=== PATIENT | female | born 1940 | race Caucasian/White ===

== ENCOUNTER 2018-06-03 14:10 | Outpatient (REF) | payer MEDICARE, OTHER, SELFPAY ==
[2018-06-03 19:16] LABS: CREATININE 0.84 mg/dL (0.55-1.02); Cholesterol 193 mg/dL (50-200); Glucose 88 mg/dL (70-100); HDL Cholesterol 60 mg/dL (40-60); LDL CHOLESTEROL 116 mg/dL (<100); TSH (W/Ref FT4) 2.95 uIU/mL (0.358-3.74); Triglyceride 127 mg/dL (30-150)
== END 2018-06-03 14:30 ==
LOC: NCHCN 14:10
PROVIDERS: PCP Family Medicine; Visit Provider Family Medicine
DX: E03.9 Hypothyroidism, unspecified (principal); Z13.1 Encounter for screening for diabetes mellitus
CPT/HCPCS: 80061; 82947; 83721; 82565; 84443

== ENCOUNTER 2018-06-21 00:34 | Outpatient (CLI) | payer MEDICARE, OTHER, SELFPAY ==
--- NOTE | 2018-06-21 15:00 | DI.RAD_ITS ---
SYMPTOMS/DIAGNOSIS: MENOPAUSAL STATE, Z78.0 DEXA SCAN WITH REGLA: Comparison is made with exams from 2009 and 2013. There is extenuation of the thoracic kyphosis on the REGLA image. There is slight anterior wedging of mid thoracic vertebral bodies, as well as endplate osteophytes and disc space narrowing. The bone mineral density measurements of the lumbar spine correspond to a total T score of -1.1, consistent with osteopenia. There has been no significant change when compared with the previous exams. The bone mineral density measurements of the left hip correspond to a total T score of -1.8 and a femoral neck T score of -2.2. The total bone mineral density shows a 6.5% decrease when compared with 2013 and a 7.9% decrease when compared with 2009. The bone mineral density measurements of the left forearm correspond to a T score of the distal third of -1.9. This is not significantly changed from 2013. IMPRESSION: Osteopenia of the left forearm, left hip and lumbar spine.
--- NOTE | 2018-06-21 15:44 | DI.MAMMO_ITS ---
SYMPTOM/DIAGNOSIS: SCREENING, Z12.31, HEALTH CARE, Z00.00 MAMMOGRAMS: Mammograms were interpreted according to the usual protocol including computer analysis with CAD system, tomosynthesis and C view imaging. Comparison is made with exams from [id number]. The breasts are composed of scattered fibroglandular densities, breast density, Category B. No suspicious masses or suspicious microcalcifications are seen. There has been no significant change. IMPRESSION: Category 1B, negative mammogram. Routine screening is recommended. [facility] ASSESSMENT OF FINDINGS: Negative. Category 1. Patient will receive a letter notifying them of these results. BI-RADS category B. There are scattered areas of fibroglandular density.
== END 2018-06-21 00:54 ==
PROVIDERS: PCP Family Medicine; Visit Provider Family Medicine
DX: M85.88 Other specified disorders of bone density and structure, other site (principal); Z12.31 Encounter for screening mammogram for malignant neoplasm of breast; Z78.0 Asymptomatic menopausal state
CPT/HCPCS: 77063; 77067; 77080

== ENCOUNTER 2019-06-08 15:50 | Outpatient (REF) | payer MEDICARE, OTHER, SELFPAY ==
[2019-06-08 19:58] LABS: TSH (W/Ref FT4) 1.65 uIU/mL (0.36-3.74)
== END 2019-06-08 16:10 ==
LOC: NCHCN 15:50
PROVIDERS: PCP Family Medicine; Visit Provider Family Medicine
DX: E03.9 Hypothyroidism, unspecified (principal)
CPT/HCPCS: 84443

== ENCOUNTER 2020-06-13 20:49 | Outpatient (REF) | payer MEDICARE, OTHER, SELFPAY ==
[2020-06-13 19:24] LABS: TSH (W/Ref FT4) 2.07 uIU/mL (0.36-3.74)
== END 2020-06-13 21:09 ==
LOC: NCHCN 20:49
PROVIDERS: PCP Family Medicine; Visit Provider Family Medicine
DX: E03.9 Hypothyroidism, unspecified (principal)
CPT/HCPCS: 84443

== ENCOUNTER 2020-09-12 01:54 | Outpatient (CLI) | payer MEDICARE, OTHER, SELFPAY ==
--- NOTE | 2020-09-12 | DI.DEXA_ITS ---
EXAM: XR DEXA BONE DENSITY W/WO REGLA CLINICAL HISTORY: OSTEOPENIA,M85.88,SCREENING FOR OSTEOPOROSIS IN POSTMENOPAUSAL WOMAN,Z78.0 TECHNIQUE: COMPARISON: No exams were available for comparison FINDINGS: DEXA scan was performed according to the usual protocol. Please see the accompanying data sheets. Findings for left hip scanning are T-score -1.5 with left femoral neck T-score -2.1. Prior study of May 2018 showed left hip T-score -1.8. Findings for lumbar spine scanning are T-score -0.7. Prior study of 2017 showed lumbar T-score -1.1. Findings for left forearm scanning shows T-score -1.6. IMPRESSION: Findings consistent with osteopenia according to the WHO criteria. There is mild anterior wedging of mid thoracic vertebral bodies consistent with mild chronic compression fractures. RADIATION DOSE DELIVERED: Total DLP
--- NOTE | 2020-09-12 15:15 | DI.MAMMO_ITS ---
EXAM: MAMMO SCREENING CLINICAL HISTORY: SCREENING, Z12.39 TECHNIQUE: Mammograms were interpreted according to the usual protocol including computer analysis w [place] CAD system, tomosynthesis and C-view imaging. COMPARISON: FINDINGS: The breasts are of moderate density with fairly symmetrical distribution of fibroglandular tissue. N o dominant mass or clumped microcalcification is identified in either breast. Current examination is compared with previous examinations including May 2018 and there has been no gross interval joyner ge in appearance in comparison prior studies. IMPRESSION: No specific evidence of malignancy at this time. Routine screening examinations are suggested at yea rly intervals in this age group according to the ACS ACR guidelines. BI-RADS Category 1 - Negative Breast Density - Category B - Scattered areas of fibroglandular density
== END 2020-09-12 02:14 ==
PROVIDERS: PCP Family Medicine; Visit Provider Family Medicine
DX: Z12.31 Encounter for screening mammogram for malignant neoplasm of breast (principal); M85.89 Other specified disorders of bone density and structure, multiple sites
CPT/HCPCS: 77063; 77067; 77080

== ENCOUNTER 2021-06-04 02:13 | Outpatient (CLI) | payer MEDICARE, OTHER, SELFPAY ==
[2021-06-04 11:10] LABS: Source Nasal/Nares
[2021-06-04 15:49] LABS: COVID-19 PCR Negative (Negative)
== END 2021-06-04 02:14 | disposition home or self-care (01) ==
PROVIDERS: PCP Family Medicine; Visit Provider Ophthalmology
DX: Z20.822 Contact with and (suspected) exposure to COVID-19 (principal); Z01.818 Encounter for other preprocedural examination
CPT/HCPCS: 87635

== ENCOUNTER 2021-06-06 06:45 | Day surgery (SDC) | payer MEDICARE, OTHER, SELFPAY ==
[2021-06-06] MEDS: Tropicam./Phenyleph. (1/2.5%) 5 ML BTL OS ×3 (07:27→07:40)
[2021-06-06 07:31] VITALS: BP 142/80; PULSE 60; RESP 16; TEMP 36.2; O2SAT 97
--- NOTE | 2021-06-06 07:43 | W.ANESPRE ---
General Info Date of Service Date Performed: 06/06/21 Height: 5 ft 0.5 in Weight: 74.3 kg Body Mass Index (BMI): 31.4 Surgical Procedure: Operation Date: 06/06/21 08:40 Proposed Procedures Side Surgeon p Cataract Extraction with IOL Implant Left Bryce Palm MD Meds Allergies and Home Medications Allergies Allergy/AdvReac Type Severity Reaction Status Date / Time fentanyl Allergy Severe Anaphylaxis Unverified 06/06/21 07:24 alendronate sodium AdvReac Intermediate pain Unverified 06/06/21 07:40 [From Fosamax] Home Medication Medication Instructions Recorded calcium carbonate-vitamin D3 1 tab PO BID 06/04/21 [Calcium 600 + D(3)] levothyroxine 88 mcg PO DAILY 06/04/21 Current Visit Medications: Current Medications Generic Name Dose Route Start Last Admin Trade Name Freq PRN Reason Stop Dose Admin Acetaminophen 1,000 mg 06/06/21 06:00 Acetaminophen 500 Mg Tab PO Q4H PRN PRN Miscellaneous Medication 0 ml 06/06/21 06:00 Prednisolone 1%, Moxifloxacin 0.5%, Nepafenac 0.1% 5ml Btl OS DIRECTED ROSELINE Miscellaneous Medication 0 ml 06/06/21 06:00 06/06/21 07:40 Tropicam./Phenyleph. 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 states f/u with PCP Hypothyroidism Osteoarthritis Osteopenia Surgical History Surgical History (Updated 06/06/21 @ 07:24 by Caren Kellogg) History of total knee arthroplasty Hx of section Hx of colonoscopy Tobacco Smoking/Tobacco Use Status: Never Alcohol Alcohol Intake: never Substance Use Substance use type: does not use Vital Signs and Lab Results Vital Signs Most Recent Vital Signs in EMR: Most Recent Vital Signs Temp Pulse Resp BP Pulse Ox 36.2 C L 60 16 142/80 H 97 06/06/21 07:31 06/06/21 07:31 06/06/21 07:31 06/06/21 07:31 06/06/21 07:31 Lab Results Blood Type / Crossmatch: No Data to Display Complete Blood Count: No Data to Display Complete Metabolic Panel: No Data to Display Liver Function Panel: No Data to Display Coagulation Panel: No Data to Display Cardiac Panel: No Data to Display Arterial Blood Gas: No Data to Display Venous Blood Gas: No Data to Display Pancreas Panel: No Data to Display Thyroid Panel: No Data to Display Infectious Disease: Coronavirus (COVID-19)(PCR) Negative (Negative) 06/04/21 09:54 06/04/21 Coronavirus 2019 Source Nasal/Nares 06/04/21 09:54 06/04/21 Blood Cultures: No Data to Display Toxicology Panel: No Data to Display Anesthesia Assessment and Plan Anesthesia History Personal History: No History of Anesthesia Complications Family History: No Family History of Anesthesia Complications Exercise Tolerance Exercise Tolerance: Metabolic Equivalents>4 Pertinent Negatives Pertinent Negatives: No Symptoms of GERD Cardiac & Pulmonary Exam Cardiac Exam: Normal S1/S2 Heart Sounds Pulmonary Exam: Clear Bilateral Breath Sounds Airway Exam Known Difficult Airway: No Mallampati Class: 2 Mouth Opening: Normal (> 3cm) Thyromental Distance: Greater than 3 cm Neck Range of Motion: Full ROM Neck Circumference: Normal Teeth Condition: Normal Dentition ASA Classification ASA Score: ASA 2 Emergency Case?: No NPO Status NPO Status: NPO Clears >2 hours, Solids >8 hours Anesthesia Plan Resuscitation Status: Full Code Anesthesia Technique: MAC Anesthesia Airway Planned: Natural Airway Monitors Used: Standard Monitors
[2021-06-06 08:06] VITALS: BMI 31.4
[2021-06-06] MEDS: Tetracaine 0.5% 4 ML BTL OS (08:19)
[2021-06-06] MEDS: Lidocaine 1% Pres-Free 5 ML VIAL (08:21)
[2021-06-06] MEDS: Balanced Salt Soln.-PLUS 500 ML BAG (08:25)
[2021-06-06] MEDS: Lidocaine 2% Jelly 6 ML SYR (08:26)
[2021-06-06] MEDS: Duovisc Viscoelastic System EACH 1 EACH (08:26)
[2021-06-06] MEDS: Povidone-Iodine Ophth 30 ML BTL (08:27)
--- NOTE | 2021-06-06 08:44 | W.PM.DSUDISC ---
Discharge Plan Disposition Patient Disposition: HOME Condition: Good Discharge Details Attending Provider: Bryce Palm Primary Care Provider: Shakira Downs V Home Meds and New Rx's Prescriptions: No Action levothyroxine 88 mcg tablet 88 mcg PO DAILY RF: 0 calcium carbonate-vitamin D3 [Calcium 600 + D(3)] 600 mg(1,500mg) -400 unit Tablet 1 tab PO BID RF: 0 Discharge Instructions Stand Alone Forms: Post-op Topical Cataract, Yu Landin (DSU) Discharge Orders Discharge Orders: Discharge Order (Routine); Ordered 06/06/21 Ordered By: Bryce Palm DS: Diagnosis Discharge Diagnosis (1) Nuclear sclerotic cataract of left eye: Status: Resolved
[2021-06-06 08:45] VITALS: BP 146/75; PULSE 55; RESP 16; TEMP 36; O2SAT 98
--- NOTE | 2021-06-06 08:49 | W.PM.OP ---
Date of service: 06/06/21 Time of Service: 08:49 Operative Note Operative Note DATE OF PROCEDURE: 06/06/21 PRE-OP DIAGNOSIS: Nuclear/cortical cataract, left eye POST-OP DIAGNOSIS: same PROCEDURE: Cataract extraction using phacoemulsification with intraocular lens implant, left eye SURGEON: Bryce Palm ANESTHESIA TYPE: Local By Surgeon and MAC Refer to Anesthesia Record PATHOLOGY: none sent COMPLICATIONS: None Patient was transported to: same day Patient's condition: stable Implants: Isaías [employer] Isaías / [employer] Tecnis [id number] Indications: Progressive decreased vision due to cataract, left eye, with poor red reflex Procedure Description: CATARACT SURGERY OPERATIVE REPORT PREOPERATIVE DIAGNOSIS: 1. Nuclear/cortical cataract, left eye POSTOPERATIVE DIAGNOSIS: Same OPERATION: 1. Cataract extraction using phacoemulsification with posterior chamber intraocular lens implant, left eye. IOL: IOL Coat Hanger Shaper Machine Operator/Model: [employer] Isaías / MILY Tecnis [id number] IOL Power: + 21.5 diopters IOL Serial Number: [id number] Optic Diameter: 6.0 mm Haptic/Overall Diameter: 13.0 mm PHACO INFO: Arjun [employer] T[employer] Managementurion Vision System with OZil and Active Fluidics Cumulative Dispersed Energy (CDE): 15.56 seconds SURGEON: Bryce Palm MD, VALARIE ANESTHESIA: Monitored [facility] (MAC), with local sub-tenon's anesthetic infiltration COMPLICATIONS: None SPECIMENS: None INDICATIONS FOR PROCEDURE: The patient is a 80-year-old lady with history of diminished visual acuity in her left eye secondary to the development of nuclear and cortical cataract. The option of cataract surgery was offered to the patient and she wished to proceed. PROCEDURE: The correct surgical eye was identified and marked as the left eye and the pupil was dilated in the preoperative area using mydriatics and cycloplegics. The dilated pupil size was 6.5 mm. She elected to proceed without oral sedation. The patient was brought to the operating room where cardiopulmonary monitoring was instituted and surgical time-out was performed, confirming the correct operative eye and IOL power. Topical anesthesia was administered and ophthalmic povidone-iodine 5% was instilled into the conjunctival fornices. Lidocaine gel was applied to the cornea and the brett-ocular area was prepped with Betadine 10% solution and draped in the usual sterile fashion for intraocular surgery, including an aperture drape. A Tegaderm transparent film dressing was cut in half and used to cover the lashes and lid margins. Care was taken to sequester the lashes and lid margins under the Tegaderm dressing. A lid speculum was placed between the lids of the operative eye and the Gilberto-Val operating microscope was maneuvered into position. Shelbi scissors were then used to make a conjunctival buttonhole approximately 6mm posterior to the limbus in the inferonasal quadrant. Blunt dissection was carried out to expose bare sclera, and a blunt-tipped sub-tenon?s anesthesia cannula was introduced and passed posteriorly along the globe where non-preserved plain lidocaine was injected into posterior sub-Tenon?s space. A sideport knife was used to make a paracentesis port superiorly/superiortemporally. Intraocular phenylephrine/lidocaine was injected int the anterior chamber.. The anterior chamber was filled with viscoelastic. A 2.4mm keratome knife was used to create a half-thickness groove at the limbus and then to construct a three-plane near-clear corneal tunnel extending 2.0mm into clear cornea at the 3:00 position. A flap was raised on the anterior capsule and capsulorhexis forceps were used to complete a continuous curvilinear capsulorhexis of 5.5 mm. Moderate zonular laxity was noted. Balanced salt solution was then used to perform cortical cleaving hydrodissection and nuclear hydrodelineation until the lens could be freely rotated within the capsular bag. The lens nucleus was then disassembled and removed within the capsular bag and iris plane using phacoemulsification. Residual cortical material was removed using the 45-degree angled silicone I/A tip with 0.3mm port. The posterior capsule was carefully polished to remove as much residual lens epithelial cells as safely possible. The capsular bag was then inflated and the anterior chamber deepened with viscoelastic. The lens implant described above was inserted into the capsular bag using the MILY [place] Injector. A Kuglen hook was used to dial the IOL into position. Residual viscoelastic was then removed first from posterior to the IOL, then from the anterior chamber using the I/A handpiece. The lens implant was noted to center nicely within the capsular bag. The incisions were stromally hydrated, and the anterior chamber was reformed using BSS. Then 0.5cc of moxifloxacin 1.0mg/ml were injected into the capsular bag and anterior chamber. The incisions were checked with a Weck spear and found to be secure. Several drops of ophthalmic povidone-iodine 5% were then applied to the eye followed by two drops of Imprimis combination prednisolone/moxifloxacin/nepafenac solution. The drapes were removed and a clear plastic protective eye shield was placed over the eye. The patient was then returned to Same Day Surgery in stable condition.
--- NOTE | 2021-06-06 09:51 | W.ANESPOSTOP ---
Postoperative Evaluation Date, Time and Location Date Performed: 06/06/21 Time Performed: 08:45 Patient Location: Day Surgery Unit Vital Signs Most Recent Imported Vital Signs: Most Recent Vital Signs Temp Pulse Resp BP Pulse Ox 36.0 C L 55 L 16 146/75 H 98 06/06/21 08:45 06/06/21 08:45 06/06/21 08:45 06/06/21 08:45 06/06/21 08:45 Pain Score Most Recent Pain Score: Most Recent Pain Score Pain Level 0 06/06/21 08:45 Assessment Mental Status: Awake (Alert & Oriented to Patient Baseline) Airway and Respiratory Function: Patent airway with normal (patient baseline) respiratory exam Cardiovascular Function: Hemodynamically Stable Hydration Status: Adequately Hydrated Nausea & Vomiting: No Nausea or Vomiting Pain: Pt. Denies Any Pain Peripheral Nerve Block: Patient did not receive a nerve block
== END 2021-06-06 09:08 | disposition home or self-care (01) ==
PROVIDERS: PCP Family Medicine; Visit Provider Ophthalmology
PROC: (CPT 66984; principal; 2021-06-06 08:30)
DX: H25.12 Age-related nuclear cataract, left eye (principal); E03.9 Hypothyroidism, unspecified; I44.0 Atrioventricular block, first degree
CPT/HCPCS: 66984; V2632

== ENCOUNTER 2021-06-17 13:10 | Outpatient (REF) | payer MEDICARE, OTHER, SELFPAY ==
[2021-06-17 14:42] LABS: HCT 37.9 % (36.0-46.0); HGB 12.3 g/dL (11.2-15.7)
[2021-06-17 14:46] LABS: ESR 16 mm/hr (0-30)
[2021-06-17 15:02] LABS: Anion Gap 8.4 mmol/L (3-11); BUN 21 mg/dL (7-18); CO2 27.6 mmol/L (21.0-32.0); CREATININE 0.9 mg/dL (0.55-1.02); Chloride 105 mmol/L (98-107); Glucose 83 mg/dL (74-106); Potassium 4.2 mmol/L (3.5-5.1); Sodium 141 mmol/L (136-145); TSH (W/Ref FT4) 6.35 uIU/mL (0.36-3.74)
[2021-06-17 15:27] LABS: FREE T4 1.13 ng/dL (0.76-1.46)
== END 2021-06-17 13:11 | disposition home or self-care (01) ==
LOC: NCHCN 13:10
PROVIDERS: PCP Family Medicine; Visit Provider Family Medicine
DX: E03.9 Hypothyroidism, unspecified (principal); Z00.00 Encounter for general adult medical examination without abnormal findings
CPT/HCPCS: 80048; 85652; 84439; 84443; 85014; 85018

== ENCOUNTER 2021-06-18 01:59 | Outpatient (CLI) | payer MEDICARE, OTHER, SELFPAY ==
[2021-06-18 13:05] LABS: Source Nasal/Nares
[2021-06-18 17:58] LABS: COVID-19 PCR Negative (Negative)
== END 2021-06-18 02:00 | disposition home or self-care (01) ==
LOC: LBO 01:59
PROVIDERS: PCP Family Medicine; Visit Provider Ophthalmology
DX: Z20.822 Contact with and (suspected) exposure to COVID-19 (principal); Z01.818 Encounter for other preprocedural examination
CPT/HCPCS: 87635

== ENCOUNTER 2021-06-20 09:25 | Day surgery (SDC) | payer MEDICARE, OTHER, SELFPAY ==
[2021-06-20] MEDS: Tropicam./Phenyleph. (1/2.5%) 5 ML BTL OD ×3 (10:11→10:21)
[2021-06-20 10:12] VITALS: BP 124/73; PULSE 61; RESP 16; TEMP 36; O2SAT 98
--- NOTE | 2021-06-20 11:22 | W.ANESPRE ---
General Info Date of Service Date Performed: 06/20/21 Height: 5 ft 0.5 in Weight: 73.2 kg Body Mass Index (BMI): 30.9 Surgical Procedure: Operation Date: 06/20/21 12:40 Proposed Procedures Side Surgeon p Cataract Extraction with IOL Implant Right Bryce Palm MD Meds Allergies and Home Medications Allergies Allergy/AdvReac Type Severity Reaction Status Date / Time fentanyl Allergy Severe Anaphylaxis Unverified 06/20/21 10:07 alendronate sodium AdvReac Intermediate pain Unverified 06/20/21 10:07 [From Fosamax] Home Medication Medication Instructions Recorded calcium carbonate-vitamin D3 1 tab PO BID 06/04/21 [Calcium 600 + D(3)] levothyroxine 88 mcg PO DAILY 06/04/21 Current Visit Medications: Current Medications Generic Name Dose Route Start Last Admin Trade Name Freq PRN Reason Stop Dose Admin Acetaminophen 1,000 mg 06/20/21 06:00 Acetaminophen 500 Mg Tab PO Q4H PRN PRN Miscellaneous Medication 0 ml 06/20/21 06:00 Prednisolone 1%, Moxifloxacin 0.5%, Nepafenac 0.1% 5ml Btl OD DIRECTED ROSELINE Miscellaneous Medication 0 ml 06/20/21 06:00 06/20/21 10:21 Tropicam./Phenyleph. 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 states f/u with PCP Hypothyroidism Osteoarthritis Osteopenia Surgical History Surgical History (Updated 06/20/21 @ 10:07 by Caren Kellogg) History of total knee arthroplasty Hx of cataract surgery Hx of section Hx of colonoscopy Tobacco Smoking/Tobacco Use Status: Never Alcohol Alcohol Intake: never Substance Use Substance use type: does not use Vital Signs and Lab Results Vital Signs Most Recent Vital Signs in EMR: Most Recent Vital Signs Temp Pulse Resp BP Pulse Ox 36 C L 61 16 124/73 98 06/20/21 10:12 06/20/21 10:12 06/20/21 10:12 06/20/21 10:12 06/20/21 10:12 Lab Results Blood Type / Crossmatch: No Data to Display Complete Blood Count: Hemoglobin 12.3 g/dL (11.2-15.7) 06/17/21 11:05 06/17/21 Hematocrit 37.9 % (36.0-46.0) 06/17/21 11:05 06/17/21 Complete Metabolic Panel: Sodium Level 141 mmol/L (136-145) 06/17/21 11:05 06/17/21 Potassium Level 4.2 mmol/L (3.5-5.1) 06/17/21 11:05 06/17/21 Chloride Level 105 mmol/L (98-107) 06/17/21 11:05 06/17/21 Carbon Dioxide Level 27.6 mmol/L (21.0-32.0) 06/17/21 11:05 06/17/21 Blood Urea Nitrogen 21 mg/dL (7-18) H 06/17/21 11:05 06/17/21 Creatinine 0.9 mg/dL (0.55-1.02) 06/17/21 11:05 06/17/21 Estimated GFR/1.73 m2 >= 60.00 (mL/min/1.73m2) 06/17/21 11:05 06/17/21 Calcium Level 9.0 mg/dL (8.5-10.1) 06/17/21 11:05 06/17/21 Glucose Level 83 mg/dL (74-106) 06/17/21 11:05 06/17/21 Liver Function Panel: No Data to Display Coagulation Panel: No Data to Display Cardiac Panel: No Data to Display Arterial Blood Gas: No Data to Display Venous Blood Gas: No Data to Display Pancreas Panel: No Data to Display Thyroid Panel: Thyroid Stimulating Hormone (TSH) 6.35 uIU/mL (0.36-3.74) H 06/17/21 11:05 06/17/21 Infectious Disease: Coronavirus (COVID-19)(PCR) Negative (Negative) 06/18/21 10:11 06/18/21 Coronavirus 2019 Source Nasal/Nares 06/18/21 10:11 06/18/21 Blood Cultures: No Data to Display Toxicology Panel: No Data to Display Anesthesia Assessment and Plan Anesthesia History Personal History: No History of Anesthesia Complications Family History: No Family History of Anesthesia Complications Exercise Tolerance Exercise Tolerance: Metabolic Equivalents>4 Pertinent Negatives Pertinent Negatives: No Symptoms of GERD, No Major Cardiovascular Symptoms or Complaints and No Major Pulmonary Symptoms or Complaints Cardiac & Pulmonary Exam Cardiac Exam: Normal S1/S2 Heart Sounds Pulmonary Exam: Clear Bilateral Breath Sounds Airway Exam Known Difficult Airway: No Mallampati Class: 2 Mouth Opening: Normal (> 3cm) Thyromental Distance: Greater than 3 cm Neck Range of Motion: Full ROM Neck Circumference: Normal Teeth Condition: Normal Dentition ASA Classification ASA Score: ASA 2 Emergency Case?: No NPO Status NPO Status: NPO Clears >2 hours, Solids >8 hours Anesthesia Plan Resuscitation Status: Full Code Anesthesia Technique: MAC Anesthesia Airway Planned: Natural Airway Monitors Used: Standard Monitors
[2021-06-20 11:36] VITALS: BMI 30.9
[2021-06-20] MEDS: Balanced Salt Soln.-PLUS 500 ML BAG (12:03)
[2021-06-20] MEDS: Tetracaine 0.5% 4 ML BTL OD (12:03)
[2021-06-20] MEDS: Duovisc Viscoelastic System EACH 1 EACH (12:04)
[2021-06-20] MEDS: Lidocaine 1% Pres-Free 5 ML VIAL (12:04)
[2021-06-20] MEDS: Lidocaine 2% Jelly 6 ML SYR (12:05)
[2021-06-20] MEDS: Povidone-Iodine Ophth 30 ML BTL (12:06)
[2021-06-20 12:25] VITALS: BP 142/66; PULSE 57; RESP 18; TEMP 36.1; O2SAT 98
--- NOTE | 2021-06-20 12:26 | W.PM.DSUDISC ---
Discharge Plan Disposition Patient Disposition: HOME Condition: Good Discharge Details Attending Provider: Bryce Palm Primary Care Provider: Shakira Downs V Home Meds and New Rx's Prescriptions: No Action levothyroxine 88 mcg tablet 88 mcg PO DAILY RF: 0 calcium carbonate-vitamin D3 [Calcium 600 + D(3)] 600 mg(1,500mg) -400 unit Tablet 1 tab PO BID RF: 0 Discharge Instructions Stand Alone Forms: Post-op Topical Cataract, Yu Landin (DSU) Discharge Orders Discharge Orders: Discharge Order (Routine); Ordered 06/20/21 Ordered By: Bryce Palm DS: Diagnosis Discharge Diagnosis (1) Nuclear sclerotic cataract of right eye: Status: Resolved (2) Cortical cataract of right eye: Status: Resolved
--- NOTE | 2021-06-20 12:27 | ROE_ITS ---
Date of service: 06/20/21 Time of Service: 12:27 Operative Note Operative Note DATE OF PROCEDURE: 06/20/21 PRE-OP DIAGNOSIS: Nuclear/cortical cataract, right eye POST-OP DIAGNOSIS: same PROCEDURE: Cataract extraction using phacoemulsification with intraocular lens implant, right eye SURGEON: Bryce Palm ANESTHESIA TYPE: Local By Surgeon and MAC Refer to Anesthesia Record ESTIMATED BLOOD LOSS: 0 PATHOLOGY: none sent COMPLICATIONS: None Patient was transported to: same day Patient's condition: stable Implants: Isaías & Isaías/MILY Tecnis [id number] Indications: Progressive visual loss due to cataract, right eye Procedure Description: CATARACT SURGERY OPERATIVE REPORT PREOPERATIVE DIAGNOSIS: 1. Nuclear/cortical cataract, right eye POSTOPERATIVE DIAGNOSIS: Same OPERATION: 1. Cataract extraction using phacoemulsification with posterior chamber intraocular lens implant, right eye. IOL: IOL Boarding Machine Operator/Model: Isaías [employer] Isaías / MILY Tecnis [id number] IOL Power: + 21.5 diopters IOL Serial Number: [id number] Optic Diameter: 6.0mm Haptic/Overall Diameter: 13.0mm PHACO INFO: Arjun GREE Internationalurion Vision System with OZil and Active Fluidics Cumulative Dispersed Energy (CDE): 7.87 seconds SURGEON: Bryce Palm MD, VALARIE ANESTHESIA: Monitored Anesthesia Care (MAC), with local sub-tenon's anesthetic infiltration COMPLICATIONS: None SPECIMENS: None INDICATIONS FOR PROCEDURE: The patient is a 80-year-old lady with history of diminished visual acuity in her right eye secondary to the development of nuclear and cortical cataract. She has already undergone cataract surgery in the left eye and is doing well postoperatively. She now presents for cataract surgery of the right eye. PROCEDURE: The correct surgical eye was identified and marked as the right eye and the pupil was dilated in the preoperative area using mydriatics and cycloplegics. The dilated pupil size was 7.0 mm. She elected to proceed without oral sedation. The patient was brought to the operating room where cardiopulmonary monitoring was instituted and surgical time-out was performed, confirming the correct operative eye and IOL power. Topical anesthesia was administered and ophthalmic povidone-iodine 5% was instilled into the conjunctival fornices. Lidocaine gel was applied to the cornea and the brett-ocular area was prepped with Betadine 10% solution and draped in the usual sterile fashion for intraocular surgery, including an aperture drape. A Tegaderm transparent film dressing was cut in half and used to cover the lashes and lid margins. Care was taken to sequester the lashes and lid margins under the Tegaderm dressing. A lid speculum was placed between the lids of the operative eye and the Gilberto-Val operating microscope was maneuvered into position. Shelbi scissors were then used to make a conjunctival buttonhole approximately 6mm posterior to the limbus in the inferonasal quadrant. Blunt dissection was carried out to expose bare sclera, and a blunt-tipped sub-tenon?s anesthesia cannula was introduced and passed posteriorly along the globe where non- preserved plain lidocaine was injected into posterior sub-Tenon?s space. A sideport knife was used to make a paracentesis port inferotemporally. Intraoc ular phenylephrine/lidocaine was injected into the anterior chamber. The anterior chamber was filled with viscoelastic. A 2.4mm keratome knife was used to create a half-thickness groove at the limbus and then to construct a three- plane near-clear corneal tunnel extending 2.0mm into clear cornea superiortemporally. A flap was raised on the anterior capsule and capsulorhexis forceps were used to complete a continuous curvilinear capsulorhexis of 5.5 mm. Moderate zonular laxity was noted. Balanced salt solution was then used to perform cortical cleaving hydrodissection and nuclear hydrodelineation until the lens could be freely rotated within the capsular bag. The lens nucleus was then disassembled and removed within the capsular bag and iris plane using phacoemulsification. Residual cortical material was removed using the I/A handpiece. The posterior capsule was carefully polished to remove as much residual lens epithelial cells as safely possible. The capsular bag was then inflated and the anterior chamber deepened with viscoelastic. The lens implant described above was inserted into the capsular bag using the MILY Clarence Injector. A Kuglen hook was used to dial the IOL into position. Residual viscoelastic was then removed first from posterior to the IOL, then from the anterior chamber using the I/A handpiece. The lens implant was noted to center nicely within the capsular bag. The incisions were stromally hydrated, and the anterior chamber was reformed using BSS. Then 0.5cc of moxifloxacin 1.0mg/ml were injected into the capsular bag and anterior chamber. The incisions were checked with a Weck spear and found to be secure. Several drops of ophthalmic povidone-iodine 5% were then applied to the eye followed by two drops of Imprimis combination prednisolone/moxifloxacin/nepafenac solution. The drapes were removed and a clear plastic protective eye shield was placed over the eye. The patient was then returned to Same Day Surgery in stable condition.
--- NOTE | 2021-06-20 12:43 | W.ANESPOSTOP ---
Postoperative Evaluation Date, Time and Location Date Performed: 06/20/21 Time Performed: 12:43 Patient Location: Day Surgery Unit Vital Signs Most Recent Imported Vital Signs: Most Recent Vital Signs Temp Pulse Resp BP Pulse Ox 36.1 C L 57 L 18 142/66 H 98 06/20/21 12:25 06/20/21 12:25 06/20/21 12:25 06/20/21 12:25 06/20/21 12:25 Pain Score Most Recent Pain Score: Most Recent Pain Score Pain Level 0 06/20/21 12:25 Assessment Mental Status: Awake (Alert & Oriented to Patient Baseline) Airway and Respiratory Function: Patent airway with normal (patient baseline) respiratory exam Cardiovascular Function: Hemodynamically Stable Hydration Status: Adequately Hydrated Nausea & Vomiting: No Nausea or Vomiting Pain: Pt. Denies Any Pain Peripheral Nerve Block: Patient did not receive a nerve block
== END 2021-06-20 13:12 | disposition home or self-care (01) ==
PROVIDERS: PCP Family Medicine; Visit Provider Ophthalmology
PROC: (CPT 66984; principal; 2021-06-20 12:30)
DX: H25.11 Age-related nuclear cataract, right eye (principal); E03.9 Hypothyroidism, unspecified; Z79.899 Other long term (current) drug therapy; I44.0 Atrioventricular block, first degree
CPT/HCPCS: 66984; V2632

== ENCOUNTER 2021-08-20 09:37 | Outpatient (REF) | payer MEDICARE, OTHER, SELFPAY ==
[2021-08-20 14:04] LABS: FREE T4 1.28 ng/dL (0.76-1.46); TSH 1.32 uIU/mL (0.36-3.74)
== END 2021-08-20 09:38 | disposition home or self-care (01) ==
LOC: NCHCN 09:37
PROVIDERS: PCP Family Medicine; Visit Provider Family Medicine
DX: E03.9 Hypothyroidism, unspecified (principal)
CPT/HCPCS: 84439; 84443

== ENCOUNTER → 2022-04-03 00:46 | Outpatient (CLI) | payer MEDICARE, OTHER, SELFPAY ==
--- OUTSIDE RECORDS SUMMARY | 2022-04-03 01:20 | XMS_ITS | Encounter Summary ---
:1940 Author Organization [facility] [address] Care Team Providers Name Role Phone Shakira Downs MD Primary Care Provider Reason for Visit Reason Comments Left Knee Pain Encounter Details Date Type Department Care Team Description 06/18/2015 Office [place] [facility] [place] Primary osteoarthritis [facility] MD [place] [address] [place] [address] [place] [address] Social History Tobacco Use Types Packs/Day Years Used Date Never Smoker Smokeless Tobacco: Never Used Alcohol Use Standard Drinks/Week Comments No 0 (1 standard drink = 0.6 oz pure alcoho l) Sex Assigned at Date Recorded Not on file documented as of this encounter Last Filed Vital Signs Vital Sign Reading Time Taken Comments Blood Pressure 112/65 06/18/2015 12:33 PM EDT Pulse 65 06/18/2015 12:33 PM EDT Temperature - - Respiratory Rate - - Oxygen Saturation - - Inhaled Oxygen Concentration - - Weight 72.3 kg (159 lb 6.4 06/18/2015 12:33 PM fully cl othed oz) EDT Height 156.2 cm (5' 1.5) 06/18/2015 12:33 PM verbal EDT Body Mass Index 29.63 06/18/2015 12:33 PM EDT documented in this encounter Progress Notes Zeke Gonzalez MD - 06/18/2015 1:00 PM EDT Please see the note scribed by Lor Mcclendon RN. I have reviewed the patient's history, examination and labs. We will proceed with surgery unless his medical condition changes. The risks, benefits, and alternatives, of left knee arthroplasty were discussed with the patient. The risks were limited to infection, stiffness, pain, injury lesser nerve, limb length inequality, fracture, dislocation, DVT/PE, implant failure, wound breakdown, hematoma formation, need for additional surgery and loss of limb and/or life. All questions were answered and he wished to proceed. We will plan on ASA for VTE prophylaxis. Zeke Gonzalez MD, VALARIE Lor Mcclendon RN - 06/18/2015 12:48 PM EDT This note is recorded by Lor Mcclendon RN acting as a scribe for Zeke Gonzalez MD. PREOPERATIVE VISIT HISTORY OF PRESENT ILLNESS: Very pleasant 74 y.o. year-old female with severe osteoarthritis of the knee. I have seen the patient previously and the plan is for left total knee arthroplasty. Please refer to my previous note for the full history. She reports that the pain has not changed and has actually gotten a bit worse. She has reviewed the shared decision making video and is confident in the decision to go forward with total joint arthroplasty. PHYSICAL EXAMINATION: Exam is previously documented in my note and is unchanged. RELEVANT LAB STUDIES: Lab Results Component Value Date WBC 5.7 06/18/2015 HGB 12.7 06/18/2015 HCT 38.7 06/18/2015 PLATELET 327 06/18/2015 CREATININE 0.87 06/18/2015 Estimated Creatinine Clearance: 53.8 mL/min (based on Cr of 0.87). type and screen done. ASSESSMENT/PLAN: A 74 y.o. year-old female who presents for preoperative appointment today. I had a long discussion with her regarding the risks and benefits of total knee arthroplasty. We talked aboutbleeding, infection, need for further surgery, fracture, blood clots, implant failure, blood transfusion, and the complications of anesthesia up to and including . I used total knee implants to demonstrate for her how we perform the procedure and all questions were answered. I did review the history and physical today which says she is cleared for surgery and has no specific recommendations for further testing. I reviewed the labs and there were no issues with those. Informed consent was signedin the clinic today. We discussed DNR status and the patient is a full code. We will plan to use Aspirin for 6 weeks postoperatively for DVT prophylaxis. I discussed with them the possible discharge scenarios including going home versus needing to go to a rehab facility. We will make that determination after seeing how well mobilization is progressing. I have personally evaluated the patient and agree with the above note as recorded by Lor Mcclendon, RN. documented in this encounter Plan of Treatment Not on filedocumented as of this encounter Visit Diagnoses Diagnosis Primary osteoarthritis of left knee Primary localized osteoarthrosis, lower leg documented in this encounter Care Teams Thread Separator Relationship Specialty Start Date End Date Shakira Downs MD PCP - General 02/15/15 [address] [place] [address] documented as of this encounter
--- OUTSIDE RECORDS SUMMARY | 2022-04-03 01:20 | XMS_ITS | Encounter Summary ---
:1940 Author Organization [facility] [place] [address] Care Team Providers Name Role Phone Shakira Downs MD Primary Care Provider Reason for Visit Reason Comments Aftercare Of Tjr SP L TKA DOS 06/24/15 Encounter Details Date Type Department Care Team Description 06/16/2016 Office Visit [place] [facility] [place] Status post left knee [facility] [place] [address] [place] [address] ORTHOPAEDICS [place], [place] [address] Social History Tobacco Use Types Packs/Day Years Used Date Never Smoker Smokeless Tobacco: Never Used Alcohol Use Standard Drinks/Week Comments No 0 (1 standard drink = 0.6 oz pure alcoho l) Sex Assigned at Date Recorded Not on file documented as of this encounter Last Filed Vital Signs Vital Sign Reading Time Taken Comments Blood Pressure 118/69 06/16/2016 11:21 AM EDT Pulse 68 06/16/2016 11:21 AM EDT Temperature - - Respiratory Rate - - Oxygen Saturation - - Inhaled Oxygen Concentration - - Weight 74.7 kg (164 lb 9.6 oz) 06/16/2016 11:21 AM EDT Height 153.7 cm (5' 0.5) 06/16/2016 11:21 AM EDT Body Mass Index 31.62 06/16/2016 11:21 AM EDT documented in this encounter Progress Notes Zenaida Hernandez MD - 06/16/2016 11:30 AM EDT Patient Name: Zahida Bond : 1940 MR#: [id number] Case Date: 06/24/15 Surgeon: Florin Gonzalez Procedure: left total knee revision HPI: Zahida Bond is a very pleasant 75 y.o. year-old female who presents for a 1 years follow-up of the above procedure. The patient has been doing very well and her pain is markedly improved over preoperative status. No fevers, chills, nausea, vomiting, or symptoms of infection. Zahida has been ambulating with no assistive device. She can walk as far as she wants without pain. Physical Exam: Well-appearing female in no acute distress. Alert and Oriented x 3 and answers all questions appropriately. The incision is well healed, with no signs of infection. Knee Exam: Left Knee ROM: Extension:0 Flexion: 110 Alignment: 0-4 degrees Neutral Stability: A/P Translation <5mm Varus <5mm Valgus <5mm Extension La degrees or less Patella Tracking: Normal Pulses Palpable: Left PT:Yes Left DP:Yes Motor/Sensory: Distal Motor: Normal Distal Sensory: Normal Quadriceps Strength: 5 X-RAYS: Multiple radiographic views were obtained at my request and reviewed with the patient. X-rays show a well-placed prosthesis with no evidence of fracture or loosening. ASSESSMENT/PLAN: 1 years post-op and doing well. Continue weightbearing as tolerated and working on range of motion, and we will see her back in 4-5 years for repeat examination with XR. Patient may return to normal activities as her pain and function allow. We also discussed maintaining good foot care and giving prompt attention to any source of infection throughout the body including foot ulcers and urinary tract infections. Signed: ZENAIDA HERNANDEZ MD 06/16/2016 Zeke Gonzalez MD - 06/16/2016 11:30 AM EDT I performed a history and physical examination of the patient and discussed the management plan withDr. Hernandez. I also discussed the different treatment options, as well as the risks and benefits of each with the patient and questions were answered. I reviewed the note and agree with the documented fi ndings and plan of care. Zeke Gonzalez MD, VALARIE documented in this encounter Plan of Treatment Not on filedocumented as of this encounter Visit Diagnoses Diagnosis Status post left knee replacement documented in this encounter Care Teams Polisher Sand Relationship Specialty Start Date End Date Shakira Downs MD PCP - General 02/15/15 [address] [place] [address] documented as of this encounter
--- OUTSIDE RECORDS SUMMARY | 2022-04-03 01:20 | XMS_ITS | Encounter Summary ---
:1940 Author Organization [facility] [place] [address] Care Team Providers Name Role Phone Shakira Downs MD Primary Care Provider Reason for Visit Consultation (Routine) - Closed Specialty Diagnoses / Procedures Referred By Contact Refer red To Contact Cardiology Diagnoses AV BLOCK 1ST DEGREE DISCOVERED ON EKG PRE OP FOR LEFT TKR NEED CARDIOLOGY Shakira Vang MD [facility] [facility] [place] [address] [place], [place] [id number] [place] [id number] Referral ID Status Reason Start Date Expiration Date Visits V isits Requested Authorized [id number] Closed Consult & 05/30/2015 05/29/2016 1 1 Test Connection Center Encounter Details Date Type Department Care Team Description 06/14/2015 [place] [facility] [place] Catalan MD [facility] [place] [address] AV block, 1st degree; [facility] Vitaliy Dale MD [facility] [place] [address] Left knee pain; Drive Primary localized osteoarthr osis, lower [place] [address] Social History Tobacco Use Types Packs/Day Years Used Date Never Smoker Smokeless Tobacco: Never Used Alcohol Use Standard Drinks/Week Comments No 0 (1 standard drink = 0.6 oz pure alcoho l) Sex Assigned at Date Recorded Not on file documented as of this encounter Last Filed Vital Signs Vital Sign Reading Time Taken Comments Blood Pressure 140/76 06/14/2015 1:08 PM EDT Pulse 69 06/14/2015 1:08 PM EDT Temperature - - Respiratory Rate - - Oxygen Saturation 97% 06/14/2015 1:08 PM EDT Inhaled Oxygen Concentration - - Weight 73 kg (161 lb) 06/14/2015 1:08 PM EDT Height - - Body Mass Index 30.42 04/09/2015 2:01 PM EDT documented in this encounter Progress Notes Vitaliy Dale MD - 06/14/2015 2:43 PM EDT See my addendum to Dr. Catalan's note. Sam Catalan - 06/14/2015 8:25 AM EDT Reason for consult: Preoperative cardiac assessment PCP: Shakira Downs MD; Delmar Schmitt PA-C, [facility] Ms. Adam is a 74-year-old woman without prior cardiac history referred for preoperative cardiac assessment prior to left TKA by Dr. Richmond at [facility] [place]24[place]. Per discussion with PEDRO LUIS Lizama, of [facility]ics, the surgery will be done under spinal anesthesia. The patient has already seen her PCP for preoperative assessment, and the specific question is the presence of a first degree AV block. The patient denies any prior cardiac history, and has never had prior cardiac testing. She states that she passed out once many years ago while giving blood, and reports occasional orthostaticsymptoms when rising to a standing position, but denies anything concerning to her. The patient does have a history of hypothyroidism, and has been taking a stable dose of levothyroxine for the past several years. TSH was checked on 05/29/15; though the results of that testing is not currently available for my review, the patient reports that they indicated no need to change her levothyroxine dose. The patient denies any history of kidney problems, diabetes, TIA, or stroke. 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 She denies chest pain, orthopnea, LE edema, dyspnea on exertion, or palpitations. ROS: As above. All others negative. PMH: Hypothyroidism Osteoarthritis PSH: Screening colonoscopy, 2009 Allergies Allergen Reactions ??? Fentanyl Anaphylaxis Current Outpatient Rx Name Route Sig Dispense Refill ??? acetaminophen (TYLENOL) 650 mg Tablet Sustained Release Oral Take 650 mg by mouth every 8 hours as needed for Pain. Do not exceed 6 tabs in 24 hours ??? levothyroxine (SYNTHROID) 88 mcg Tablet Oral Take 88 mcg by mouth daily. ??? Calcium Carbonate-Vit D3-Min 600 mg calcium- 400 unit Tablet Oral Take by mouth daily. ??? DISCONTD: VOLTAREN 1 % Gel ??? DISCONTD: acetaminophen (TYLENOL) 325 mg Tablet Oral Take 650 mg by mouth every 4 hours as needed for Pain. ??? DISCONTD: Glucosamine Sulfate 500 mg Tablet Oral Take by mouth 3 times daily. FH: Father , age 65 with ASCVD, smoking, HTN, EtOH abuse Mother alive, age 91, on no medications 2 siblings, no known cardiac history 3 adult children, all without cardiac history SH: Has never smoked. No alcohol or drugs. 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 Vitals: BP 140/76 mmHg Pulse 69 Wt 73.029 kg (161 lb) SpO2 97% Exam: NAD, alert and oriented No carotid bruits, JVP not elevated Mildly bradycardic, regular rhythm, no MGR Chest CTAB Abdomen soft, NT, ND LEs warm and without edema Labs: Recent labs drawn on 05/29/15, currently unavailable for review. ECG (05/29/15): Reviewed in scanned documents. Sinus bradycardia with first degree AV block at 52 bpm. KY 220, QTc 420, QRS 90. ECG (today): Normal sinus rhythm at 64 bpm. Normal ECG. Assessment: This is a 74-year-old woman without prior cardiac history referred for preoperative cardiac assessment prior to left TKA by Dr. Richmond at [facility] on 06/24/15 under spinal anesthesia. The patient's functional status exceeds 4 METs, and her risk of cardiac complications (IN or cardiac arrest) is 0.1% per the [employer]' NQSIP risk calculator. The patient is of acceptable risk for an intermediate risk procedure, and proceeding without further cardiac assessment is recommended per 2014ACC/AHA Guidelines. Regarding the specific question of the patient's first degree AV block, it has not been associated with a concerning history of lightheadedness or syncope. The KY interval is only mildly prolonged (220ms, normal <200 ms) on a prior ECG, and is at the upper limit of normal today (200 ms). The patient's QRS and other intervals are normal, and there is no evidence of other conduction system abnormality on ECG. There is no history of neuromuscular disease. As such, the finding of first degree AV block requires no further evaluation or treatment. Recommend: -Proceeding to TKR without further cardiac testing is recommended per 2014 ACC/AHA Guidelines. -Avoid negative chronotropes or dromotropes (beta blockers, non-dihydropyridine calcium channel blockers). -In the longer term, would recommend continue screening for hypertension, as well as obtaining a lipid profile for assessment of the patient's 10-year ASCVD risk by pooled risk upholstery estimator. Patient discussed with attending blueprint assembler, Dr. Dale, who has independently confirmed details ofthe history and exam. Sam Catalan MD Pager [phone] Arm Rest Builder CC: Delmar Schmitt PA-C, [facility] PEDRO LUIS Lizama, [facility]ics CARDIOLOGY STAFF NOTE Zahida Bond is a 74 y.o. year-old female patient whom I saw today with Dr. Catalan. I have personally interviewed and examined the patient and reviewed appropriate data, including labs, ECGs and other diagnostic studies. I agree with the principal findings documented above. The assessment and planwere formulated in discussion with me. She is active without any exertional symptoms. Pertinent Examination Findings: JVP not elevated; lungs clear; RRR without significant murmur; no edema. No further cardiac workup is indicated prior to surgery. Other recommendations as above. Vitaliy Dale M.D., F.A.C.C. Staff Sugar Sampler pager [phone] documented in this encounter Plan of Treatment Not on filedocumented as of this encounter Procedures Procedure Name Priority Date/Time Associated Diagnosis Comme nts EKG 12-LEAD Routine 06/14/2015 1:23 PM Left knee bennett n Results for this EDT Primary localized procedure are in the osteoarthrosis, lower result s section. leg, left documented in this encounter Results EKG 12 Lead (06/14/2015 1:23 PM EDT) [facility] gist Method Time Signature Ventricular rate 64 BPM MUSE SYSTEM Atrial Rate 64 BPM MUSE SYSTEM P-R Interval 204 ms MUSE SYSTEM QRS Duration 86 ms MUSE SYSTEM Q-T Interval 418 ms MUSE SYSTEM QTC Calculated 431 ms MUSE SYSTEM (Bezet) Calculated P [place] 41 degrees MUSE SYSTEM Calculated R [place] -13 degrees MUSE SYSTEM Calculated T [place] 35 degrees MUSE SYSTEM INTERPRETATION Normal sinus rhythm MUSE SYSTEM Normal ECG No previous ECGs available Confirmed by MD Nathan, Gus ([id number]) on 06/15/2015 10:08:16 AM Specimen Anatomical Collection Method Collection Time Receive d Time (Source) Location / / Volume Laterality 06/14/2015 1:23 PM 5 EDT 10:08 AM EDT Zeke Gonzalez MD ECG ORDERABLES Performing Organization Address City/State/ZIP Code Phon e Number MUSE SYSTEM documented in this encounter Visit Diagnoses Diagnosis AV block, 1st degree First degree atrioventricular block Left knee pain Pain in joint, lower leg Primary localized osteoarthrosis, lower leg, left documented in this encounter Care Teams Technical Clerk Relationship Specialty Start Date End Date Shakira Downs MD PCP - General 02/15/15 [address] [place] [address] documented as of this encounter
--- OUTSIDE RECORDS SUMMARY | 2022-04-03 01:20 | XMS_ITS | Encounter Summary ---
:1940 [place] [address] Care Team Providers Name Role Phone Shakira Downs MD Primary Care Provider Reason for Visit Auth/Cert - Closed Specialty Diagnoses / Procedures Referred By Contact Refer red To Contact Diagnoses Left knee OA Procedures PRO TOTAL KNEE ARTHROPLASTY @TOTAL KNEE ARTHROPLASTY Referral ID Status Reason Start Date Expiration Date Visits Requ ested Visits Authorized [id number] Closed 1 1 Encounter Details Date Type Department Care Team Description 06/24/2015 Anesthesia Event Main Operating Room Pepe Spence MD [facility] [address] [place] [address] [phone] Anesthesia Record Procedure Summary Procedure Name Responsible Anesthesia Start Anesthesia Stop Anesthesiologist Time Time TOTAL KNEE Pepe Cummins MD 06/24/15 0720 06/24/15 0946 ARTHROPLASTY (WRVU 20.72) (Left Knee) Events Date Time Event Comment 06/24/2015 0720 AN Verify 0720 Start 0720 An Start Data 0721 Spinal 0725 0734 Anesthesia Ready 0800 An Tourn Inflated 0801 Procedure Start 0826 Break/Relief In Argelia LOPEZ 0840 Break/Relief Out 0908 An Tourn Deflated 0932 Procedure Stop 0936 an stop data 0938 Recovery or ICU Handoff Patient care was transferred to the destination unit staff after review of the patient's medica l history, current anesthetic/surgi jacob status and plan, according to the Provider Handoff Checklist. 0946 Stop Procedure end, p atient transferred to PACU, VSS, report to R N. Name Total Propofol INF 605.51 mg ceFAZolin (ANCEF) 2g in dextrose 5% 50 mL 2 g tranexamic acid (CYKLOKAPRON) 1,080 mg in sodium chlor bambi 0.9% 110.8 mL 1,080 mg ePHEDrine 100 mg Lactated Ringers 700 mL Agents No agents on file. Blood No blood administrations on file. Lines, Drains, and Airways Type Details Placement Removal Incision 06/24/15; knee 06/24/15 0000 by Radha Lawrence RN PIV 06/24/15; 0630; cephalic 06/24/15 0630 by Nick, 06/25/15 1512 by vein left (lateral side of Dewayne Ulloa, Piedad Rios, arm); [id number] CONTENT CURATOR catheter system; 18 gauge; BSmithRN; intradermal injection; 06/25/15; 1512 documented in this encounter Social History Tobacco Use Types Packs/Day Years Used Date Never Smoker Smokeless Tobacco: Never Used Alcohol Use Standard Drinks/Week Comments No 0 (1 standard drink = 0.6 oz pure alcoho l) Sex Assigned at Date Recorded Not on file documented as of this encounter OR Notes Anesthesia Postprocedure Evaluation - Pepe Cummins MD - 06/24/2015 12:48 PM EDT Patient: Zahida Bond Procedure(s) Performed: Procedure(s): @TOTAL KNEE ARTHROPLASTY MODIFIER, ATTUNE CURVED FIXED PLATFORM, DEPUY Actual Anesthetic: SAB, regional block Patient location: PACU Post-op pain: Adequate analgesia Post-op nausea: no nausea or vomiting Last Vitals: Filed Vitals: 06/24/15 1100 BP: 96/82 Pulse: 57 Temp: Resp: 19 Post-op cardiovascular and respiratory status: is stable Level of consciousness: awake, alert and oriented Complications: no apparent complications and tolerated the procedure well Fluid Status: normal Anesthesia Procedure Notes - Alton Ryder - 06/24/2015 7:36 AM EDT Associated Order(s): ANE NEURAXIAL UPDATED; ANESTHESIA BLOCK Procedure: Neuraxial Block Primary Anesthetic Type: Spinal The patient was greeted. The sedation plan, its benefits, risks and alternatives were discussed withthe patient. The patient has consented to the procedure. The medical history and chart were reviewed. The timeout was performed. Start time: 06/24/2015 7:20 AM End time: 06/24/2015 7:25 AM Patient Location: Block Room Patient Prep Position: Sitting Prep: Hat, Mask, Sterile Gloves, Chlorhexidine and Patient Draped Injection technique: single-shot Skin Anesthetic Lidocaine 1% 5 ml Procedure Technique Level of needle insertion: L4-5 Needle approach: midline Needle Type: [facility] Gauge: 25 Needle length: 3.5 in Number of attempts: 1 Intrathecal Injection The patient received the following medication/s as an intrathecal injection: Bupivacaine 0.75% w dextrose 2 ml Resident/GREASE MAKER: Fellow: Attending Physician: Maria G ~~~~~~~~~~~~~~~~~~~~~~~~~~~~~~~~~~~~~~~~~~~~~~~~~~~~~~~~~~~~ Procedure: Anesthesia Block Block: Post-op Pain Control, femoral nerve block Post-op pain management at the request of surgeon. Patient Location: Block Room This patient was greeted in the block room and the risks and benefits of the anesthetic block were reviewed. The risks of infection, bleeding, local anesthetic toxicity, and nerve injury were discussed. Specifically, the approximate risk of nerve injury (08/2999-08/4999) including neuropathy, loss of sensation and motor function, whether permanent or temporary, was discussed as well as the fact that post-surgical nerve injury can be unrelated to the actual injection and may be related to intra-operative issues such as positioning and tourniquet usage. The sedation plan, its benefits, risks and alternatives were discussed with the patient. The patient has consented to the procedure. The timeout was performed prior to procedure start. Standard ASA monitors were applied. Indication/Prep Position: supine Prep: chlorhexidine, patient draped Laterality: left Ultrasound Guidance: in-plane Skin Medication lidocaine 1% 3 ml Injection Injection technique:single-shot Needle Length: 10 cm Gauge: 21 Needle Type: A-[id number]-hkfrd Medication injection made incrementally with aspirations. Nerve infiltration solution through a needle Ropivicaine 0.5% 20 mL Resident: MD Aleksey Fellow: Attending Physician: MD Maria G ~~~~~~~~~~~~~~~~~~~~~~~~~~~~~~~~~~~~~~~~~~~~~~~~~~~~~~~~~~~~ Anesthesia Preprocedure Evaluation - Pepe Cummins MD - 06/23/2015 8:07 PM EDT Images from the original note were not included. Pre-Anesthesia Evaluation for: Zahida Bond a 74 y.o. female. Procedure(s): @TOTAL KNEE ARTHROPLASTY MODIFIER, ATTUNE CURVED FIXED PLATFORM, DEPUY Patient Active Problem List Diagnosis ??? Hypothyroidism ??? Primary osteoarthritis of left knee No past medical history on file. No past surgical history on file. History Substance Use Topics ??? Smoking status: Never Smoker ??? Smokeless tobacco: Never Used ??? Alcohol Use: No History Drug Use No Allergies Allergen Reactions ??? Fentanyl Anaphylaxis Medications: MAR and/or home medications have been reviewed. Physical Exam: There were no vitals filed for this visit. There is no height or weight on file to calculate BMI. Airway Assessment: Mallampati: II TM distance: >3 FB Neck ROM: full Cardiovascular Assessment: cardiovascular exam normal Pulmonary Assessment: pulmonary exam normal Dental Assessment: Misc Assessment: IV access: Peripheral line Anesthesia Plan: ASA 2 spinal and regional, with a(n) intravenous induction Brief HPI: 74 y.o. with OA left knee to OR for LEFT TKA Patient Active Problem List: Hypothyroidism Primary osteoarthritis of left knee METS:>4 Cardiac Symptoms: denies EKG: normal ECHO: none LABS: Lab Results Component Value Date HGB 12.7 06/18/2015 PLATELET 327 06/18/2015 NA 140 06/18/2015 K 4.4 06/18/2015 CREATININE 0.87 06/18/2015 Type and Screen: Lab Results Component Value Date ABORH O Pos 06/18/2015 Past anesthetic problems: None. Reported fentanyl made her stop breathing Last anesthetic record (on eDH): none NPO status: Reviewed and appropriate New abrasions/scabs or numbness in distribution of proposed peripheral nerve block: Anesthetic Plan: SAB Monitoring: Standard ASA monitors Post Op Pain management: femoral peripheral nerve block Region - Other Informed Consent: Anesthetic plan and risks discussed with patient. Use of blood products discussed with patient whom consented to blood products. Plan discussed with resident and attending. PAT Staff Note documented in this encounter Plan of Treatment Not on filedocumented as of this encounter Procedures Procedure Name Priority Date/Time Associated Diagnosis Comme nts ANE NEURAXIAL Routine 06/24/2015 11:17 AM Results for this UPDATED EDT procedure are i n the results section. documented in this encounter Results Anesthesia Block (06/24/2015 11:17 AM EDT) Narrative Alton Ryder - 06/24/2015 11:17 A M EDT Alton Ryder MD ? 06/24/2015 11:17 AM Procedure: ?? Neuraxial Block Primary Anesthetic Type: Spinal The patient was greeted. The sedation pl an, its benefits, risks and alternatives were discussed with the patient. ??The patient has consented to the procedure. ??The ca dical history and chart were reviewed. ??The timeout was perform ed. Start time: 06/24/2015 7:20 AM End time: 06/24/2015 7:25 AM Patient Location: Block Room Patient Prep Position: Sitting Prep: Hat, Mask, Sterile Gloves, Chlorhe xidine and Patient Draped Injection technique: single-shot Skin Anesthetic Lidocaine 1% ??5 ml Procedure Technique Level of needle insertion: L4-5 Needle approach: midline Needle Type: [facility] Gauge: 25 Needle length: 3.5 in Number of attempts: 1 Intrathecal Injection The patient received the following medic ation/s as an intrathecal injection: Bupivacaine 0.75% w dextrose 2 ml Resident/GREASE MAKER: Fellow: Attending Physician: Maria G ~~~~~~~~~~~~~~~~~~~~~~~~~~~~~~~~~~~~~~~~ ~~~~~~~~~~~~~~~~~~~~ Procedure: ??Anesthesia Block Block: Post-op Pain Control, femoral ner ve block Post-op pain management at the request o f surgeon. Patient Location: Block Room ?? This patient was greeted in the block ro om and the risks and benefits of the anesthetic block were re viewed. ??The risks of infection, bleeding, local anesthetic to xicity, and nerve injury were discussed. ??Specifically, the appr oximate risk of nerve injury (08/2999-08/4999) including neuropa thy, loss of sensation and motor function, whether permanent or temporary, was discussed as well as the fact that post-surgical n erve injury can be unrelated to the actual injection and ma y be related to intra-operative issues such as positioni ng and tourniquet usage. ?? The sedation plan, its benefits, risks a nd alternatives were discussed with the patient. ??The patien t has consented to the procedure. ??The timeout was performed p rior to procedure start. ?? Standard ASA monitors were applied. Indication/Prep Position: supine Prep: chlorhexidine, patient draped Laterality: left Ultrasound Guidance: in-plane Skin Medication lidocaine 1% 3 ml Injection Injection technique:single-shot Needle Length: 10 cm Gauge: 21 Needle Type: B-ufabw-edpkr Medication injection made incrementally with aspirations. Nerve infiltration solution through a ne edle Ropivicaine 0.5% 20 mL Resident: MD Aleksey Fellow: Attending Physician: MD Maria G ~~~~~~~~~~~~~~~~~~~~~~~~~~~~~~~~~~~~~~~~ ~~~~~~~~~~~~~~~~~~~~ Zeke Gonzalez MD FOREIGN EXCHANGE CLERK [facility] ANE NEURAXIAL UPDATED (06/24/2015 11:17 AM EDT) Narrative Alton Ryder - 06/24/2015 11:17 A M EDT Alton Ryder MD ? 06/24/2015 11:17 AM Procedure: ?? Neuraxial Block Primary Anesthetic Type: Spinal The patient was greeted. The sedation pl an, its benefits, risks and alternatives were discussed with the patient. ??The patient has consented to the procedure. ??The me dical history and chart were reviewed. ??The timeout was perform ed. Start time: 06/24/2015 7:20 AM End time: 06/24/2015 7:25 AM Patient Location: Block Room Patient Prep Position: Sitting Prep: Hat, Mask, Sterile Gloves, Chlorhe xidine and Patient Draped Injection technique: single-shot Skin Anesthetic Lidocaine 1% ??5 ml Procedure Technique Level of needle insertion: L4-5 Needle approach: midline Needle Type: [facility] Gauge: 25 Needle length: 3.5 in Number of attempts: 1 Intrathecal Injection The patient received the following medic ation/s as an intrathecal injection: Bupivacaine 0.75% w dextrose 2 ml Resident/GREASE MAKER: Fellow: Attending Physician: Maria G ~~~~~~~~~~~~~~~~~~~~~~~~~~~~~~~~~~~~~~~~ ~~~~~~~~~~~~~~~~~~~~ Procedure: ??Anesthesia Block Block: Post-op Pain Control, femoral ner ve block Post-op pain management at the request o f surgeon. Patient Location: Block Room ?? This patient was greeted in the block ro om and the risks and benefits of the anesthetic block were re viewed. ??The risks of infection, bleeding, local anesthetic to xicity, and nerve injury were discussed. ??Specifically, the appr oximate risk of nerve injury (08/2999-08/4999) including neuropa thy, loss of sensation and motor function, whether permanent or temporary, was discussed as well as the fact that post-surgical n erve injury can be unrelated to the actual injection and ma y be related to intra-operative issues such as positioni ng and tourniquet usage. ?? The sedation plan, its benefits, risks a nd alternatives were discussed with the patient. ??The patien t has consented to the procedure. ??The timeout was performed p rior to procedure start. ?? Standard ASA monitors were applied. Indication/Prep Position: supine Prep: chlorhexidine, patient draped Laterality: left Ultrasound Guidance: in-plane Skin Medication lidocaine 1% 3 ml Injection Injection technique:single-shot Needle Length: 10 cm Gauge: 21 Needle Type: W-krekf-cwqfo Medication injection made incrementally with aspirations. Nerve infiltration solution through a ne edle Ropivicaine 0.5% 20 mL Resident: MD Aleksey Fellow: Attending Physician: MD Maria G ~~~~~~~~~~~~~~~~~~~~~~~~~~~~~~~~~~~~~~~~ ~~~~~~~~~~~~~~~~~~~~ Pepe Cummins MD FOREIGN EXCHANGE CLERK [facility] documented in this encounter Visit Diagnoses Not on filedocumented in this encounter Administered Medications Inactive Administered Medications - up to 3 most recent administrations Medication Order MAR Action Action Date Dose Rate Site ceFAZolin (ANCEF) 2g in dextrose 5% Given 06/24/2015 7:34 AM EDT 2 g 50 mL 2 g, Intravenous, EVERY 3 HOURS, 1 dose, First dose on Wed06/24/15 at 0630, Administer over 30 Minutes, Redose after 3 hours., Intra-Operative (Intra-Procedure), Indication for (Active or Suspected): Prophylaxis ePHEDrine 5 mg/mL multi-dose injection Given 06/24/2015 9:20 AM EDT 10 mg PRN, Starting on Wed06/24/15 at 0737, Until Wed06/24/15 at 0950, Anesthesia Intra-op, Routine Given 06/24/2015 9:13 AM EDT 10 mg Given 06/24/2015 9:08 AM EDT 10 mg lactated ringers infusion New Bag 06/24/2015 7:28 AM EDT CONTINUOUS PRN, Starting on Wed06/24/15 at 0728, Until Wed06/24/15 at 0950, Anesthesia Intra-op propofol (DIPRIVAN) infusion Rate/Dose 06/24/2015 9:15 50 mcg/kg/min 21.7 mL/hr Intravenous, CONTINUOUS PRN, Change AM EDT Starting on Wed06/24/15 at 0734, Until Wed06/24/15 at 0950, Anesthesia Intra-op, Routine New Bag 06/24/2015 7:34 AM EDT 75 mcg/kg/min 32.5 mL/hr tranexamic acid (CYKLOKAPRON) 1,080 mg in New Bag 2014 7:34 AM EDT 1,080 mg sodium chloride 0.9% 110.8 mL 1,080 mg (15 mg/kg/dose ? 72 kg), Intravenous, ONCE, 1 dose, On Wed06/24/15 at 0630, Administer over 30 Minutes, Dilute tranexamic acid dose in 100 mL sodium chloride 0.9% prior to administration. For patients less than or equal to 200 kg infuse over 30 minutes. For patients greater than 200 kg infuse over 60 minutes., Day of Surgery (Day of Procedure) documented in this encounter Care Teams Survey Research Teacher Relationship Specialty Start Date End Date Shakira Downs MD PCP - General 02/15/15 [address] [place] [address] documented as of this encounter
--- OUTSIDE RECORDS SUMMARY | 2022-04-03 01:20 | XMS_ITS | Encounter Summary ---
:1940 Author Organization [facility] Address [facility] [place] [address] Care Team Providers Name Role Phone Shaikra Downs MD Primary Care Provider Encounter Details Date Type Department Care Team Description 04/09/2015 Hospital Encounter XRay at [facility] Left knee pain [address] [place] [address] [place] [address] Social History Tobacco Use Types Packs/Day Years Used Date Never Smoker Smokeless Tobacco: Never Used Alcohol Use Standard Drinks/Week Comments No 0 (1 standard drink = 0.6 oz pure alcoho l) Sex Assigned at Date Recorded Not on file documented as of this encounter Medications at Time of Discharge Medication Sig Dispensed Refills Start Date End Date levothyroxine Take 88 mcg by mouth 0 01/26/2015 (SYNTHROID) 88 mcg daily. Tablet Calcium Carbonate-Vit Take by mouth daily. 0 D3-Min 600 mg calcium- 400 unit Tablet aspirin 325 mg Tablet, Take 1 tablet by 82 tablet 0 015 08/05/2015 Delayed Release (E.C.) mouth 2 times daily for 41 days. Take with food. gabapentin (NEURONTIN) Take 1 capsule by 27 capsule 0 201407/22/2015 300 mg Capsule mouth every evening for 27 days. naproxen (EC NAPROSYN) Take 1 tablet by 82 tablet 0 015 08/05/2015 500 mg Tablet, Delayed mouth 2 times daily Release (E.C.) (with meals) for 41 days. omeprazole (PRILOSEC) Take 1 capsule by 41 capsule 0 015 08/05/2015 20 mg Capsule, Delayed mouth daily for 41 Release(E.C.) days. acetaminophen (TYLENOL) Take 2 tablets by 0 06/2509/17/2015 500 mg Tablet mouth every 8 hours. Around the clock until 07/04, and then as needed. DO NOT EXCEED 3000 mg tylenol in a 24 hour period. bisacodyl (DULCOLAX) 10 Place 1 suppository 0 07/30/2015 mg Suppository rectally daily as needed. Constipation oxyCODONE (ROXICODONE) Take 1-2 tablets by 90 tablet 0 05/3107/30/2015 5 mg Tablet mouth every 4 hours as needed for Pain. Take the smallest dose possible to control your pain. As your pain improves, take smaller doses and increase the time between doses. You may break the tablet to achieve a smaller dose. senna-docusate Take 2 tablets by 60 tablet 2 06/25/201508/2014 (PERICOLACE) 8.6-50 mg mouth 2 times daily. Tablet Bowel regimen while on narcotics. polyethylene glycol Take 17 g by mouth 2 0 201407/30/2015 (MIRALAX) 17 gram times daily as Powder in Packet needed. Bowel regimen VOLTAREN 1 % Gel 0 02/12/2015 06/14/20 15 acetaminophen (TYLENOL) Take 650 mg by mouth 0 06/14/2015 325 mg Tablet every 4 hours as needed for Pain. Glucosamine Sulfate 500 Take by mouth 3 times 0 06/14/2015 mg Tablet daily. documented as of this encounter Plan of Treatment Not on filedocumented as of this encounter Procedures Procedure Name Priority Date/Time Associated Diagnosis Comme nts XR STANDING Routine 04/09/2015 1:12 PM Left knee pain Results for this ALINGMENT AND 1-2 EDT procedure are in VIEWS OF KNEE the results section. documented in this encounter Results XR Standing Alingment and 1-2 views of knee (04/09/2015 1:12 PM EDT) Anatomical Region Laterality Modality Knee N/A Radiographic Imaging Specimen (Source) Anatomical Collection Method Collection Time Re ceived Time Location / / Volume Laterality 04/09/2015 1:12 PM EDT Impressions 04/09/2015 1:49 PM EDT IMPRESSION: Osteoarthritis of the knees with most se bakari involvement of the medial compartment of the left knee. Narrative 04/09/2015 1:49 PM EDT EXAMINATION: STANDING ALIGNMENT AND 1-2 VIEWS OF KNEE/LEFT CLINICAL HISTORY: L KNEE PAIN/ARTHRITIS TECHNIQUE: Separate images of the pelvis , knees and feet were acquired in the AP projection with the patient standing. Th sheila images were stitched together to form a composite image of the pelvis and legs allowing for evaluation of lower extremity alignment in the weight bearin g position. Two additional views of the knee were taken. COMPARISON: None FINDINGS: There is severe narrowing of the medial compartment of the left knee and mild narrowing of the medial compartment of t he right knee. Osteophytes are present in the left solomon llofemoral compartment. A left sided suprapatellar joint effusion is seen. Standing alignment There is normal alignment of the right l eg and moderate medial deviation of the weightbearing axis of the left leg. Procedure Note Yobany Otoole MD - 04/09/2015 EXAMINATION: STANDING ALIGNMENT AND 1-2 VIEWS OF KNEE/LEFT CLINICAL HISTORY: L KNEE PAIN/ARTHRITIS TECHNIQUE: Separate images of the pelvis , knees and feet were acquired in the AP projection with the patient standing. Th sheila images were stitched together to form a composite image of the pelvis and legs allowing for evaluation of lower extremity alignment in the weight bearin g position. Two additional views of the knee were taken. COMPARISON: None FINDINGS: There is severe narrowing of the medial compartment of the left knee and mild narrowing of the medial compartment of t he right knee. Osteophytes are present in the left solomon llofemoral compartment. A left sided suprapatellar joint effusion is seen. Standing alignment There is normal alignment of the right l eg and moderate medial deviation of the weightbearing axis of the left leg. IMPRESSION IMPRESSION: Osteoarthritis of the knees with most se bakari involvement of the medial compartment of the left knee. Zeke Gonzalez MD IMG DX ORDERABLES documented in this encounter Visit Diagnoses Diagnosis Left knee pain Pain in joint, lower leg documented in this encounter Care Teams Systems Support Specialist Relationship Specialty Start Date End Date Shakira Downs MD PCP - General 02/15/[address] [place] [id number] documented as of this encounter
--- OUTSIDE RECORDS SUMMARY | 2022-04-03 01:20 | XMS_ITS | Encounter Summary ---
:1940 Author Organization [facility] [place] [address] Care Team Providers Name Role Phone Shakira Downs MD Primary Care Provider Reason for Visit Reason Onset Date Comments Pre Procedure Call 05/10/2015 Encounter Details Date Type Department Care Team Description 05/10/2015 Telephone Orthopaedics at [facility] Zeke Gonzalez, Pre Procedure Call [facility] [place] [address] [facility] [phone] DR [facility] [place], [place] [address] (Wo rk) Social History Tobacco Use Types Packs/Day Years Used Date Never Smoker Smokeless Tobacco: Never Used Alcohol Use Standard Drinks/Week Comments No 0 (1 standard drink = 0.6 oz pure alcoho l) Sex Assigned at Date Recorded Not on file documented as of this encounter Miscellaneous Notes Telephone Encounter - Zoe Castillo - 05/10/2015 10:41 AM EDT I have called and left patient a message to call us back directly. We have picked up more OR time for Dr. Gonzalez and we have patient on a cancellation list. documented in this encounter Plan of Treatment Not on filedocumented as of this encounter Visit Diagnoses Not on filedocumented in this encounter Care Teams Extractor Puller Relationship Specialty Start Date End Date Shakira Downs MD PCP - General 02/15/15 [address] [place] [address] documented as of this encounter
--- OUTSIDE RECORDS SUMMARY | 2022-04-03 01:20 | XMS_ITS | Encounter Summary ---
:1940 Author Organization [facility] [place] [address] Care Team Providers Name Role Phone Shakira Downs MD Primary Care Provider Encounter Details Date Type Department Care Team Description 06/18/2015 Laboratory Appointment Lab at [facility] Left knee pain; [facility] Primary l ocalized osteoarthrosis, lower leg, [place] [id number] Social History Tobacco Use Types Packs/Day Years Used Date Never Smoker Smokeless Tobacco: Never Used Alcohol Use Standard Drinks/Week Comments No 0 (1 standard drink = 0.6 oz pure alcoho l) Sex Assigned at Date Recorded Not on file documented as of this encounter Plan of Treatment Not on filedocumented as of this encounter Procedures Procedure Name Priority Date/Time Associated Comments Diagnosis URINALYSIS WITH Routine 06/18/2015 11:36 AM Left knee pa in Results for this REFLEX CULTURE EDT Primary localized procedur e are in osteoarthrosis, the results lower leg, left section. URINE CULTURE Routine 06/18/2015 11:36 AM Results for this EDT procedure are i n the results section. HEMOGRAM Routine 06/18/2015 11:24 AM Left knee pa in Results for this EDT Primary localized procedure are in osteoarthrosis, the results lower leg, left section. DIFFERENTIAL, Routine 06/18/2015 11:24 AM Left knee pa in Results for this AUTOMATED EDT Primary localized procedure are in osteoarthrosis, the results lower leg, left section. TYPE AND SCREEN, SDP Routine 06/18/2015 11:24 AM Left kn ee pain (FUTURE SURGERY, EDT Primary localized [facility] SAME DAY osteoarthrosis, PROGRAM ONLY) lower leg, left ABO/RH TYPING Routine 06/18/2015 11:24 AM Left knee pa in Results for this EDT Primary localized procedure are in osteoarthrosis, the results lower leg, left section. CBC (WITH DIFF) Routine 06/18/2015 11:24 AM Left knee pa in EDT Primary localized osteoarthrosis, lower leg, left ANTIBODY SCREEN Routine 06/18/2015 11:24 AM Left knee pa in Results for this EDT Primary localized procedure are in osteoarthrosis, the results lower leg, left section. BASIC METABOLIC Routine 06/18/2015 11:24 AM Left knee pa in Results for this PANEL (NON-FASTING) EDT Primary localized pro cedure are in osteoarthrosis, the results lower leg, left section. documented in this encounter Results Urine culture (06/18/2015 11:36 AM EDT) [employer] Method Time Signature Urine Culture No growth CERNER (Less than MILLENNIUM 1,000 cfu/ml). Specimen Anatomical Collection Method Collection Time Receive d Time (Source) Location / / Volume Laterality Urine specimen 06/18/2015 11:36 5 1:43 (specimen) AM EDT PM EDT Resulting Agency Comment Spec In Lab Zeke Gonzalez MD MICROBIOLOGY - GENERAL ORDER BEHZAD Performing Organization Address City/State/[place] [address] CERNER MILLENNIUM (ABNORMAL) Urinalysis with microscopic (06/18/2015 11:36 AM EDT) [employer] Method Time Signature Glucose UA Negative Negative CERNER mg/dL MILLENNIUM Protein UA Negative Negative CERNER mg/dL MILLENNIUM Bilirubin UA Negative Negative CERNER mg/dL MILLENNIUM Comment: Clinical correlation required for positi ve Urine Bilirubin results as false positive may occur with some drugs and d rug related products. If a false positive is suspected a serum total bili martinez should be considered if clinically indicated. Urobilinogen UA Normal Normal mg/dL CERNER MILL ENNIUM pH UA 6.0 5.0 - 8.0 CERNER MILLENNIUM Blood UA Negative Negative mg/dL CERNER MILLENNI UM Ketones UA Negative Negative mg/dL CERNER MILLENN IUM Nitrite UA Negative Negative CERNER MILLENNIUM Leukocytes UA Trace (A) Negative mcL CERNER ARIS NIUM Appearance UA Clear Clear CERNER MILLENNIU M Spec [place] UA 1.009 1.002 - 1.030 CERNER MIL LENNIUM Color UA Straw Yellow CERNER MILLENNIUM RBC UA <1 0 - 4 /HPF CERNER MILLENNIUM WBC UA 4 0 - 5 /HPF CERNER MILLENNIUM Squam Epith UA <1 <=4 /HPF CERNER MILLENNI UM Culture Reflexed Yes CERNER ARIS NIUM Specimen Anatomical Collection Method Collection Time Receive d Time (Source) Location / / Volume Laterality Urine specimen 06/18/2015 11:36 5 (specimen) AM EDT 11:51 AM EDT Resulting Agency Comment Spec In Lab Zeke Gonzalez MD URINE ORDERABLES Performing Organization Address City/State/[place] [address] CERNER MILLENNIUM Differential, Automated (06/18/2015 11:24 AM EDT) P athologist Signature Neutrophils % 48.7 % CERNER MILLENNIUM Neutr Abs (ANC) 2.77 1.50 - CERNER 6.30 MILLENNIUM x10(3)/mcL Lymphocytes % 42.1 % CERNER MILLENNIUM Lymphocytes Abs 2.4 1.0 - 3.6 CERNER x10(3)/mcL MILLENNIUM Monocytes % 6.7 % CERNER MILLENNIUM Monocyte Abs 0.4 0.2 - 1.0 CERNER x10(3)/mcL MILLENNIUM Eosinophils % 1.8 % CERNER MILLENNIUM Eosinophils Abs 0.1 0.0 - 0.5 CERNER x10(3)/mcL MILLENNIUM Basophils % 0.7 % CERNER MILLENNIUM Basophils Abs 0.0 0.0 - 0.2 CERNER x10(3)/mcL MILLENNIUM Immature Gran % 0.00 % CERNER MILLENNIUM Comment: Immature granulocytes(IG's)percentage an d absolute count will include metamyelocytes, myelocytes, and promyelo cytes. Blood smears from CBCs yielding IG's will be scanned manually for concor dance. If this scan disagrees with the automated IG or if promyelocytes are not ed, a manual differential will be performed. Nicole Gran Abs 0.00 0.00 - 0.05 x10(3)/mcL CER NER MILLENNIUM Specimen Anatomical Collection Method Collection Time Receive d Time (Source) Location / / Volume Laterality Blood specimen 06/18/2015 11:24 5 (specimen) AM EDT 11:52 AM EDT Resulting Agency Comment Spec In Lab Zeke Gonzalez MD HEMATOLOGY ORDERABLES Performing Organization Address City/[facility]/[place] [address] CERNER MILLENNIUM Hemogram (06/18/2015 11:24 AM EDT) P athologist Signature WBC 5.7 4.0 - 10.0 CERNER x10(3)/mcL MILLENNIUM RBC 4.38 3.93 - 5.22 CERNER x10(6)/mcL MILLENNIUM Hemoglobin 12.7 11.2 - 15.7 CERNER gm/dL MILLENNIUM Hematocrit 38.7 34.0 - 45.0 CERNER % MILLENNIUM MCV 88.4 79.0 - 94.0 CERNER fL MILLENNIUM MCH 29.0 26.6 - 32.2 CERNER pg MILLENNIUM MCHC 32.8 32.0 - 36.5 CERNER gm/dL MILLENNIUM Platelets 327 145 - 370 CERNER x10(3)/mcL MILLENNIUM RDWSD 45.0 35.0 - 46.0 CERNER fL MILLENNIUM RDWCV 13.8 10.9 - 14.4 CERNER % MILLENNIUM MPV 9.9 9.0 - 12.0 CERNER fL MILLENNIUM Specimen Anatomical Collection Method Collection Time Receive d Time (Source) Location / / Volume Laterality Blood specimen 06/18/2015 11:24 5 (specimen) AM EDT 11:52 AM EDT Resulting Agency Comment Spec In Lab Zeke Gonzalez MD HEMATOLOGY ORDERABLES Performing Organization Address City/[facility]/[place] [address] CERNER MILLENNIUM Antibody screen (06/18/2015 11:24 AM EDT) [facility] gist Method Time Signature Ab Screen Negative [facility] Ex[facility] at [facility]27[facility]2015 [facility] [id number] on: MILLENNIUM Specimen Anatomical Collection Method Collection Time Receive d Time (Source) Location / / Volume Laterality Blood specimen 06/18/2015 11:24 5 (specimen) AM EDT 11:47 AM EDT Resulting Agency Comment Spec In Lab Zeke Gonzalez MD BLOOD BANK ORDERABLES Performing Organization Address City/State/ZIP Code Phon e Number [address] [facility] ABO/Rh Typing (06/18/2015 11:24 AM EDT) athologist Signature ABORh Type O Pos [facility] Specimen Anatomical Collection Method Collection Time Receive d Time (Source) Location / / Volume Laterality Blood specimen 06/18/2015 11:24 5 (specimen) AM EDT 11:47 AM EDT Resulting Agency Comment Spec In Lab Zeke Gonzalez MD BLOOD BANK ORDERABLES Performing Organization Address City/State/ZIP Code Phon e Number [address] [facility] Basic Metabolic Panel (non-fasting) (06/18/2015 11:24 AM EDT) athologist Signature Glucose Lvl 79 65 - 199 [facility] mg/dL [facility] Comment: Diabetes: >=200 mg/dL plus symp toms BUN 15 8 - 18 mg/dL [facility] MILLENNIUM Creatinine 0.87 0.70 - 1.20 mg/dL CERNER MILL ENNIUM Comment: Please note that the pediatric reference intervals supplied above were not validated at [facility]. Results from pediatri c patients should be interpreted in conjunction to the patient's age, height and muscle mass. Sodium 140 135 - 145 mmol/L CERNER ARIS NIUM Potassium 4.4 3.5 - 5.0 mmol/L CERNER ARIS NIUM Comment: Please note: ??Patients with WBC >100,00 0 may have falsely elevated Potassium levels. ??For accurate Potassium quantif ication in these patients send serum separator tube (gold top) for subsequent determinations. ??Contact the Clinical Chemistry Laboratory if there are any qu estions. Chloride 102 98 - 107 mmol/L CERNER MILLENN IUM CO2 26 22 - 31 mmol/L CERNER MILLENNI UM Anion Gap 12 5 - 15 mmol/L CERNER MILLENNIU M Calcium 9.2 8.5 - 10.5 mg/dL CERNER ARIS NIUM Estimated GFR >60 >=60 CERNER MILLENNIU M Comment: This estimated GFR (eGFR) value was calc ulated using the MDRD equation which has been validated on patients between t he ages of 18 and 70. The MDRD should not be used to assess kidney function in patients < 18 years of age or in patients with extremes of body mass, or in patients with acute kidney failure. This value should be multiplied by 1.2 f or patients. For further information please copy and past e the following links into your internet browser. http://ClickBus/DHnkdep http://ClickBus/DHMCnkf Specimen Anatomical Collection Method Collection Time Receive d Time (Source) Location / / Volume Laterality Blood specimen 06/18/2015 11:24 5 (specimen) AM EDT 11:52 AM EDT Resulting Agency Comment Spec In Lab Zeke Gonzalez MD CHEMISTRY ORDERABLES Performing Organization Address City/State/[place] [address] [facility] documented in this encounter Visit Diagnoses Diagnosis Left knee pain Pain in joint, lower leg Primary localized osteoarthrosis, lower leg, left documented in this encounter Care Teams Psychology Fellow Relationship Specialty Start Date End Date Shakira Downs MD PCP - General 02/15/15 [address] [place] [address] documented as of this encounter
--- OUTSIDE RECORDS SUMMARY | 2022-04-03 01:20 | XMS_ITS | Encounter Summary ---
:1940 Author Organization [facility] [place] [address] Care Team Providers Name Role Phone Shakira Downs MD Primary Care Provider Encounter Details Date Type Department Care Team Description 07/30/2015 Hospital Encounter XRay at [facility] Zeke Gonzalez Left knee pain; [address] [facility] [address] Taye MD Primary localized osteoarthrosis, lower leg, left [facility] [id number] [place] [phone] [place] [address] Social History Tobacco Use Types Packs/Day Years Used Date Never Smoker Smokeless Tobacco: Never Used Alcohol Use Standard Drinks/Week Comments No 0 (1 standard drink = 0.6 oz pure alcoho l) Sex Assigned at Date Recorded Not on file documented as of this encounter Medications at Time of Discharge Medication Sig Dispensed Refills Start Date End Date levothyroxine (SYNTHROID) Take 88 mcg by 0 2014 88 mcg Tablet mouth daily. Calcium Carbonate-Vit Take by mouth 0 D3-Min 600 mg calcium- daily. 400 unit Tablet aspirin 325 mg Tablet, Take 1 tablet by 82 tablet 0 015 08/05/2015 Delayed Release (E.C.) mouth 2 times daily for 41 days. Take with food. naproxen (EC NAPROSYN) Take 1 tablet by 82 tablet 0 015 08/05/2015 500 mg Tablet, Delayed mouth 2 times daily Release (E.C.) (with meals) for 41 days. omeprazole (PRILOSEC) 20 Take 1 capsule by 41 capsule 0 05/3108/05/2015 mg Capsule, Delayed mouth daily for 41 Release(E.C.) days. acetaminophen (TYLENOL) Take 2 tablets by 0 06/2509/17/2015 500 mg Tablet mouth every 8 hours. Around the clock until 11, and then as needed. DO NOT EXCEED 3000 mg tylenol in a 24 hour period. documented as of this encounter Plan of Treatment Not on filedocumented as of this encounter Procedures Procedure Name Priority Date/Time Associated Diagnosis Comme nts XR KNEE STANDING Routine 07/30/2015 12:47 PM Left knee p ain Results for this ALIGNMENT AP LAT EST Primary localized proced ure are in SKYLINE LEFT osteoarthrosis, the results lower leg, left section. documented in this encounter Results XR TKA First Po Visit Alignment AP Lat Osyka Left (07/30/2015 12:47 PM EST) Anatomical Region Laterality Modality Knee Left Digital Radiography Specimen (Source) Anatomical Location Collection Method / Collectio n Time Received Time / Laterality Volume Impressions 07/30/2015 12:53 PM EST IMPRESSION: 1. 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 The prosthesis is in satisfactory positi on without periprosthetic fracture. A joint effusion is noted. 2. 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 Normal weightbearing axis of the lowe r extremities. Narrative 07/30/2015 12:53 PM EST EXAMINATION: XR TKA FIRST PO VISIT ALIGNMENT AP LAT SKYLINE LEFT CLINICAL HISTORY: Status Post TKA TECHNIQUE: Separate images of the pelvis , knees and feet were acquired in the AP projection with the patient standing. Th sheila images were stitched together to form a composite image of the pelvis and legs allowing for evaluation of lower extremity alignment in the weight bearin g position. ? Lateral radiograph left knee and AP amara bennett views of both knees. COMPARISON: 04/09/2015. FINDINGS: Patient status post total left knee arth roplasty and patellar resurfacing. The prosthesis is in satisfactory position w ithout periprosthetic fracture. A joint effusion is noted. 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 Procedure Note Jacek Barry MD - 07/30/2015Formatti ng of this note might be different from the original. EXAMINATION: XR TKA FIRST PO VISIT ALIGN MENT AP LAT SKYLINE LEFT CLINICAL HISTORY: Status Post TKA TECHNIQUE: Separate images of the pelvis , knees and feet were acquired in the AP projection with the patient standing. Th sheila images were stitched together to form a composite image of the pelvis and legs allowing for evaluation of lower extremity alignment in the weight bearin g position. Lateral radiograph left knee and AP eliu ding, sunrise views of both knees. COMPARISON: 04/09/2015. FINDINGS: Patient status post total left knee arth roplasty and patellar resurfacing. The prosthesis is in satisfactory position w ithout periprosthetic fracture. A joint effusion is noted. 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 IMPRESSION IMPRESSION: 1. 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 The prosthesis is in satisfactory positi on without periprosthetic fracture. A joint effusion is noted. 2. 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 Normal weightbearing axis of the lowe r extremities. Zeke Gonzalez MD IMG DX ORDERABLES documented in this encounter Visit Diagnoses Diagnosis Left knee pain Pain in joint, lower leg Primary localized osteoarthrosis, lower leg, left documented in this encounter Care Teams Spiritual Care Coordinator Relationship Specialty Start Date End Date Shakira Downs MD PCP - General 02/15/15 [address] [place] [address] documented as of this encounter
--- OUTSIDE RECORDS SUMMARY | 2022-04-03 01:20 | XMS_ITS | Encounter Summary ---
:1940 Author Organization [facility] [place] [address] Care Team Providers Name Role Phone Elvia Downs MD Primary Care Provider Reason for Visit Auth/Cert - Closed Specialty Diagnoses / Procedures Referred By Contact Refer red To Contact Diagnoses Left knee OA Procedures PRO TOTAL KNEE ARTHROPLASTY @TOTAL KNEE ARTHROPLASTY Referral ID Status Reason Start Date Expiration Date Visits Requ ested Visits Authorized [id number] Closed 1 1 Encounter Details Date Type Department Care Team Description 06/24/2015 - Hospital Encounter 3 John Gonzalez, Latisha Left k nee pain; 06/25/2015 Diogodaryl Kothari MD Primary localized osteoarthrosis, lower leg, left; [facility] Status post total left knee replacement [facility] [address] [place] [id number] [phone] Social History Tobacco Use Types Packs/Day Years Used Date Never Smoker Smokeless Tobacco: Never Used Alcohol Use Standard Drinks/Week Comments No 0 (1 standard drink = 0.6 oz pure alcoho l) Sex Assigned at Date Recorded Not on file documented as of this encounter Last Filed Vital Signs Vital Sign Reading Time Taken Comments Blood Pressure 110/54 06/25/2015 12:29 PM EDT Pulse 68 06/25/2015 12:29 PM EDT Temperature 36.5 ??C (97.7 ??F) 06/25/2015 12:29 PM EDT Respiratory Rate 16 06/25/2015 12:29 PM EDT Oxygen Saturation 98% 06/25/2015 12:29 PM EDT Inhaled Oxygen Concentration - - Weight 72.3 kg (159 lb 6.3 oz) 06/24/2015 6:18 AM EDT Height 152.4 cm (5') 06/24/2015 6:18 AM EDT Body Mass Index 31.13 06/24/2015 6:18 AM EDT documented in this encounter Discharge Summaries Yohana Hernandez PA - 06/25/2015 2:58 PM EDT Discharge Summary Patient Name: Zahida Bond Patient Age: 74 y.o. Language: Kittitian Race: White Ethnicity: Not nor Admit date: 06/24/2015 Discharge date and time: 06/25/2015 Attending Physician: Latisha Gonzalez MD Discharge Physician: Latisha Gonzalez MD Follow-up Recommendations for Providers: See discharge instructions for additional details. Future Appointments Date Time Provider Department Center 07/30/2015 1:20 PM Latisha Gonzalez MD [address] Inpatient Provider Contact Information: Latisha Gonzalez MD Joints: [phone] After hours and weekends, call [facility] Vocational Case Manager, , and have the Orthopedic resident paged. Discharge Diagnoses (Hospital Problems) and Secondary Diagnoses (Chronic Problems): Active Hospital Problems Diagnosis ??? S/P left total knee arthroplasty 06/24/15 Lisa Resolved Hospital Problems Diagnosis Date Resolved No resolved problems to display. Active Non-Hospital Problems Diagnosis ??? Hypothyroidism ??? Primary osteoarthritis of left knee Operations/Major Procedures: 06/24/2015 Surgeon(s) and Role: * Latisha Gonzalez MD - Primary * Staci Kang MD - Resident-Surgeon Levar Procedure(s): @TOTAL KNEE ARTHROPLASTY MODIFIER, ATTUNE CURVED FIXED PLATFORM, DEPUY History of Presentation: Zahida Bond is a 74 y.o. female with a long history of left knee pain and osteoarthritis that has not responded to conservative measures. The risks, benefits, and alternatives of left knee arthroplasty were discussed with the patient. The risks included but were not limited infection, stiffness,recurrent pain, injury to the vessel or nerve, DVT/PE, fracture-dislocation, loosening, malalignment, need for additional surgery, loss of limb and/or life. All questions were answered, and she wished to proceed Hospital Course: The patient was admitted via Same Day Surgery for the above operation. DVT prophylaxis: Aspirin 325 mg BID x 6 weeks. Patient began rehab on POD#1 w/ weight bearing as tolerated of left leg rememberingto use protection at all times for balance and protection. Drains were removed POD# 1. Patient was vo iding spontaneously. Mepilex dressing was inspected POD#1 and found to be benign. Patient did not have a bowel movement prior to discharge but was passing flatus . By POD#1 the patient was medically stable and was cleared for safe discharge to home. Vital Signs at Discharge: Weight: Wt Readings from Last 1 Encounters: 06/24/15 72.3 kg (159 lb 6.3 oz) Height: Ht Readings from Last 1 Encounters: 06/24/15 152.4 cm (5') HC: HC Readings from Last 1 Encounters: No data found for HC BMI: Body mass index is 31.13 kg/(m^2). Last value Range last 24 hrs Temperature Temp: 36.5 ??C (97.7 ??F) Temp: [36.4 ??C (97.5 ??F)-36.9 ??C (98.4 ??F)] Heart Rate Heart Rate: 68 Heart Rate: [63-76] Blood Pressure BP: 110/54 mmHg BP: (94-115)/(50-61) Respiratory Rate Resp: 16 Resp: [16-17] SpO2 SpO2: 98 % SpO2: [93 %-98 %] Art BP BP (Arterial Line): -- Functional and Cognitive Status: Patient mobilizing with walker, cognitively intact at baseline mental status at time of discharge. Important Studies and Lab Data: Labs: Last 3 wbc, hgb, hct plt Recent Labs 06/25/15 0444 06/18/15 1124 WBC 8.2 5.7 HGB 10.5* 12.7 HCT 31.6* 38.7 PLATELET 226 327 Last 3 Lytes Recent Labs 06/25/15 0444 06/18/15 1124 NA 140 140 K 4.2 4.4 CL 103 102 CO2 24 26 BUN 10 15 CREATININE 0.62* 0.87 Studies: No results found. Transfusions: No Discharge Conditions/Prognosis: Stable, awake, and alert. Mobilizing as noted above, pain controlledon oral medications. Discharge to: Home With VNA. Updated Allergies/ADRs: Allergies Allergen Reactions ??? Fentanyl Other (See Comments) Pt relates that rxn was stopped breathing' with Fentanyl during colonoscopy 2008. Immunizations Given this Hospitalization: Immunization History Administered Date(s) Administered ??? Influenza Vaccine, Unspecified Formulation 05/29/2015 ??? Influenza Vaccine, Whole 07/17/2006, 07/20/2007, 07/17/2008 Discharge Medications: Your Medications New Medications Dose Details acetaminophen 500 mg Tab Commonly known as: TYLENOL Take 2 tablets by mouth every 8 hours. Around the clock until 07/04, and then as needed. DO NOT EXCEED 3000 mg tylenol in a 24 hour period. Replaces: acetaminophen 650 mg Tbsr 1000 mg Refills: 0 aspirin 325 mg Tbec Take 1 tablet by mouth 2 times daily for 41 days. Take with food. 325 mg Quantity: 82 tablet Refills: 0 bisacodyl 10 mg Supp Commonly known as: DULCOLAX Place 1 suppository rectally daily as needed. Constipation 10 mg Refills: 0 gabapentin 300 mg Cap Commonly known as: NEURONTIN Take 1 capsule by mouth every evening for 27 days. 300 mg Quantity: 27 capsule Refills: 0 naproxen 500 mg Tbec Commonly known as: EC NAPROSYN Take 1 tablet by mouth 2 times daily (with meals) for 41 days. 500 mg Quantity: 82 tablet Refills: 0 omeprazole 20 mg Cpdr Commonly known as: PriLOSEC Take 1 capsule by mouth daily for 41 days. 20 mg Quantity: 41 capsule Refills: 0 oxyCODONE 5 mg Tab Commonly known as: ROXICODONE Take 1-2 tablets by mouth every 4 hours as needed for Pain. Take the smallest dose possible to control your pain. As your pain improves, take smaller doses and increase the time between doses. You may break the tablet to achieve a smaller dose. 5-10 mg Quantity: 90 tablet Refills: 0 polyethylene glycol 17 gram Pwpk Commonly known as: MIRALAX Take 17 g by mouth 2 times daily as needed. Bowel regimen 17 g Refills: 0 senna-docusate 8.6-50 mg Tab Commonly known as: PERICOLACE Take 2 tablets by mouth 2 times daily. Bowel regimen while on narcotics. 2 tablet Quantity: 60 tablet Refills: 2 Continued medications, unchanged Dose Details calcium-vitamin D3 600 mg calcium- 400 unit Tab Take by mouth daily. Refills: 0 levothyroxine 88 mcg Tab Commonly known as: SYNTHROID Take 88 mcg by mouth daily. 88 mcg Refills: 0 STOPPED Medications acetaminophen 650 mg Tbsr Commonly known as: TYLENOL Replaced by: acetaminophen 500 mg Tab Smoking Status at Discharge: History Smoking status ??? Never Smoker Smokeless tobacco ??? Never Used Instructions Given to Patient at Discharge: Patient Instructions General Instructions Activity: 1. Your weight-bearing status is - weight bearing as tolerated of left leg. 2. Remember to use a walker or crutches at all times for balance and protection. 3. Flexion AND extension are important to work on at home. You should NOT place a pillow under your operative knee. To help with extension you can place a pillow under your heel or lower leg or placed lengthwise along the operative leg. Again DO NOT place a pillow under the operated knee for comfort. 4. You should wear the HENRY hose to knee bilaterally until you are seen in follow-up. Remove these atleast once per day to inspect your skin. Anticoagulation: Aspirin - You are being discharged on enteric-coated Aspirin 325mg by mouth twice aday. Continue this for 6 weeks. After your dose on 08/05/15 stop the Aspirin, unless you are told otherwise by your Orthopedic surgeon. Take this medication with food or large amounts (240 mL) of water or milk to minimize GI irritation. Diet: Resume your usual diet but increase your intake of fluids and fiber while you are on narcotic pain meds to prevent constipation. Driving: None until you are cleared to do so by your Orthopedic surgeon. You should not drive while you are on narcotic pain meds as they can affect your judgement and reaction time. Call your surgeon with any questions/concerns. Medications: 1. The pain medication you are on can cause constipation so increase your intake of fluids and fiberwhile you are on them. The stool softener, Pericolace, that has been prescribed can also be taken tofacilitate a bowel movement. You can also take an kzin-xan-ndsyaqy medication, Miralax if needed to combat constipation. 2. If you need a renewal on your narcotic pain medication, you need to give the Orthopedic clinic enough time to process your request. This can take up to three days, so plan accordingly. 3. Continue acetaminophen (Tylenol) 1,000mg every 8 hours around the clock until 07/04 - this can be effective in controlling pain along with your other medications. After that you can take Tylenol as needed per package insert. Do not take more than 3,000mg of acetaminophen in a 24 hour period. 4. You have been discharged on a short acting narcotic, oxycodone. You will be on this medication for a limited period of time only. Taper off this medication as your pain improves. 5. You are being discharged on prescription strength naproxen (Aleve). This medication is a type of nonsteroidal anti-inflammatory (NSAID). This will help with your pain and inflammation. You will takethis twice a day for the next 6 weeks. Your last dose will be on 08/05/15. 6. You are being discharged on a proton pump inhibitor (prilosec) - this will decrease stomach irritation that may be caused by NSAIDs. You will take this daily for the next 6 weeks (while you are on the NSAID). Your last dose will be on 08/05/15. 7. You are being discharged on gabapentin (Neurontin), a non-narcotic medication that will help withyour pain at night and allow you to sleep better. You will take this at night for the next 4 weeks. Shower (internal sutures): 1. You can shower but remember your activity limitations and always have a chair available for balance and protection. DO NOT submerge the dressing/incision. 2. (Mepilex) Do not let water run over the operative dressing. If it becomes wet lightly pat the dressing dry. DO NOT submerge the incision. When this operative dressing is removed you can let water gently run over the incision. Wound (Mepilex): 1. You do NOT have any external monica or sutures in place. Your sutures are internal and will be absorbed over time. 2. You have a Mepilex dressing in place. Do not lift the edge of the Mepilex dressing to inspect theincision, it will not re-adhere. Remove your operative dressing 7 days after your surgery (07/01). When it is removed you can leave the incision open to air or cover it with a light dressing. 3. If you have lots of drainage when you get home (and it is before 07/01), remove the operative dressing and replace it with dry sterile gauze. Continue with daily dressing changes (and as needed) until the drainage stops, then remove the dressing and leave the incision open to air or lightly covered. Misc: Remember that ICE and elevation are very important after surgery to help decrease swelling andcontrol pain. Use ICE for 20-30 minutes at a time and keep your leg elevated as much as possible. FOLLOW-UP APPOINTMENTS: 1. You will have followup appointments at [facility] as indicated below in Future Appointment and Orders. 2. You will need to have have x-rays prior to your follow-up appointment on 07/30. Please come to Radiology, desk 3T, 1 hour BEFORE that appointment for those x-rays. Future Appointments Date Time Provider Department Center 07/30/2015 1:20 PM Latisha Gonzalez MD [address] If you have questions or concerns: Wednesday through Wednesday, 8 AM - 5 PM, please call Latisha Faria MD's office at . If it is after 5 PM, the weekend, or holidays, please call and ask to speak with the Orthopedic resident on-call. Future Appointments and Orders Future Appointments Provider Department Dept Phone 07/30/2015 1:20 PM Latisha Gonzalez MD Orthopaedics [phone] Future Orders Complete By Expires Referral to Home Health - at DISCHARGE [AKT0805 CPT(R)] As directed Process Instructions: Scheduling Instructions: Comments: DISCHARGE DOCUMENTATION FOR VNA SERVICES (INCLUDING PATIENTS WITH MEDICARE COVERAGE BEING DISCHARGED HOME WITH VNA SERVICES AND THOSE PATIENTS WITH MEDICARE COVERAGE WHO ARE BEING DISCHARGED HOME WITHHOSPICE SERVICES) PATIENT'S LOCATION: Zahida Bond [address] [facility] [address] (home) Cell: No relevant phone numbers on file. Ship Cleaner's Name: herself In discussion with the attending physician, it is certified that this patient is under their care and that they, or a nurse practitioner, clinical nurse specialist or physician's investment sales assistant who is working directly with them, had a face to face encounter that meets the physician face to face encounter re quirements with this patient on 06/25/2015 The encounter with the patient was in whole, or in part, for the following medical condition, which is the primary reason for home health care services: [ L TKA ] In discussion with the primary medical team, it is certified that, based on their findings, the indicated services are medically necessary and appropriate for home health services. HOME HEALTH AGENCY: [facility]. PHONE: [phone] FAX: [phone] Home care orders for Total Knee Replacements for PT: Retirement(SN) eval if indicated on admission visit 1. Pt will be on ASA 2.Do not lift the edge of the mepilex dressing to observe the incision; this dressing needs to stay in place until 7 days after surgery. (07/01) 3. SQ sutures 4. Continue PT rehab for balance, endurance, joint mobility, ROM, Strength, TKA protocol FOR MEDICARE ONLY: (please delete this section if not Medicare) In discussion with the attending physician, it is certified that the clinical findings support that this patient is homebound ;i.e. absences from home require considerable and taxing effort due to: decreased strength and mobility L LE requiring use of assistive device and homebound status. Please note that any additional orders needs or changes will need to be obtained from this patient'sPCP: ELVIA DOWNS MD (General) [address] [place] [address] All VNA agencies which cover the area of patient's residence have been reviewed, either verbally or in writing, and patient/family have chosen the indicated home health care agency for home services. Questions: Agency name and contact information: [facility] Patient location post discharge: home What services are requested: Physical Therapy Start date: Responsible MD post discharge contact info: Primary Care Provider: ELVIA DOWNS MD (General) [phone] Discharge References/Attachments None documented in this encounter Discharge Instructions Discharge Yohana Christensen PA - 06/25/2015 2:37 PM EDT Activity: 1. Your weight-bearing status is - weight bearing as tolerated of left leg. 2. Remember to use a walker or crutches at all times for balance and protection. 3. Flexion AND extension are important to work on at home. You should NOT place a pillow under your operative knee. To help with extension you can place a pillow under your heel or lower leg or placed lengthwise along the operative leg. Again DO NOT place a pillow under the operated knee for comfort. 4. You should wear the HENRY hose to knee bilaterally until you are seen in follow-up. Remove these atleast once per day to inspect your skin. Anticoagulation: Aspirin - You are being discharged on enteric-coated Aspirin 325mg by mouth twice aday. Continue this for 6 weeks. After your dose on 08/05/15 stop the Aspirin, unless you are told otherwise by your Orthopedic surgeon. Take this medication with food or large amounts (240 mL) of water or milk to minimize GI irritation. Diet: Resume your usual diet but increase your intake of fluids and fiber while you are on narcotic pain meds to prevent constipation. Driving: None until you are cleared to do so by your Orthopedic surgeon. You should not drive while you are on narcotic pain meds as they can affect your judgement and reaction time. Call your surgeon with any questions/concerns. Medications: 1. The pain medication you are on can cause constipation so increase your intake of fluids and fiberwhile you are on them. The stool softener, Pericolace, that has been prescribed can also be taken tofacilitate a bowel movement. You can also take an fvyt-jpf-rdqltbk medication, Miralax if needed to combat constipation. 2. If you need a renewal on your narcotic pain medication, you need to give the Orthopedic clinic enough time to process your request. This can take up to three days, so plan accordingly. 3. Continue acetaminophen (Tylenol) 1,000mg every 8 hours around the clock until 07/04 - this can be effective in controlling pain along with your other medications. After that you can take Tylenol as needed per package insert. Do not take more than 3,000mg of acetaminophen in a 24 hour period. 4. You have been discharged on a short acting narcotic, oxycodone. You will be on this medication for a limited period of time only. Taper off this medication as your pain improves. 5. You are being discharged on prescription strength naproxen (Aleve). This medication is a type of nonsteroidal anti-inflammatory (NSAID). This will help with your pain and inflammation. You will takethis twice a day for the next 6 weeks. Your last dose will be on 08/05/15. 6. You are being discharged on a proton pump inhibitor (prilosec) - this will decrease stomach irritation that may be caused by NSAIDs. You will take this daily for the next 6 weeks (while you are on the NSAID). Your last dose will be on 08/05/15. 7. You are being discharged on gabapentin (Neurontin), a non-narcotic medication that will help withyour pain at night and allow you to sleep better. You will take this at night for the next 4 weeks. Shower (internal sutures): 1. You can shower but remember your activity limitations and always have a chair available for balance and protection. DO NOT submerge the dressing/incision. 2. (Mepilex) Do not let water run over the operative dressing. If it becomes wet lightly pat the dressing dry. DO NOT submerge the incision. When this operative dressing is removed you can let water gently run over the incision. Wound (Mepilex): 1. You do NOT have any external monica or sutures in place. Your sutures are internal and will be absorbed over time. 2. You have a Mepilex dressing in place. Do not lift the edge of the Mepilex dressing to inspect theincision, it will not re-adhere. Remove your operative dressing 7 days after your surgery (07/01). When it is removed you can leave the incision open to air or cover it with a light dressing. 3. If you have lots of drainage when you get home (and it is before 07/01), remove the operative dressing and replace it with dry sterile gauze. Continue with daily dressing changes (and as needed) until the drainage stops, then remove the dressing and leave the incision open to air or lightly covered. Misc: Remember that ICE and elevation are very important after surgery to help decrease swelling andcontrol pain. Use ICE for 20-30 minutes at a time and keep your leg elevated as much as possible. FOLLOW-UP APPOINTMENTS: 1. You will have followup appointments at [facility] as indicated below in Future Appointment and Orders. 2. You will need to have have x-rays prior to your follow-up appointment on 07/30. Please come to Radiology, desk 3T, 1 hour BEFORE that appointment for those x-rays. Future Appointments Date Time Provider Department Center 07/30/2015 1:20 PM Latisha Gonzalez MD [facility] [address] [place] [address] If you have questions or concerns: Wednesday through Wednesday, 8 AM - 5 PM, please call Latisha Faria MD's office at . If it is after 5 PM, the weekend, or holidays, please call and ask to speak with the Orthopedic resident on-call. Patient InstructionsYohana Hernandez PA - 06/24/2015 4:35 PM EDT documented in this encounter Medications at Time of Discharge [...] as Powder in Packet needed. Bowel regimen documented as of this encounter Progress Notes Lashon Resendiz RN - 06/25/2015 4:45 PM EDT Patient Name: Zahida Bond Patient Age: 74 y.o. Birthdate: 1940 Admit date: 06/24/2015 Attending Physician: No att. providers found PEDRO LUIS Mehta discussed AVS with patient and daughter, this RN went over the information with patient and daughter as well. Answered all questions and patient verbalized understanding of all dc instructions and follow up appointments. The discharge summary was faxed to A and report was called. P atient left via wheelchair with daughter and this RN. Pepe Stover MD - 06/25/2015 3:55 PM EDT Regional Anesthesia Progress Note Date of Encounter: 06/25/2015 Responsible Attending: Maria G Lei Staff / Associate Provider: PEPE STOVER MD ID: Patient is POD# 1 s/p knee arthroplasty for which the patient received a left femoral nerve block for post-operative pain control. Subjective: Today the patient has excellent pain control and at present states pain is 1 out of 10. Patient has been able to tolerate PO analgesics and an oral diet without nausea or vomiting. Patient is without any complaints this morning. Objective: Temp: [36.4 ??C (97.5 ??F)-36.9 ??C (98.4 ??F)] Heart Rate: [63-76] Resp: [16-17] BP: (94-115)/(50-61) SpO2: [93 %-98 %] Gen: Patient resting comfortably No bruising, erythema, swelling or discharge at insertion site. Sensory: Sensation is intact to cold over anterior thigh Motor: Patient is able to perform straight leg raise No evidence of local anesthetic toxicity Coags: No results found for: INR, PT, PTT Meds: Medication list reviewed Assessment: Peripheral nerve block for post-operative pain control, currently with excellent pain control. Block appears to be resolving appropriately. Plan: ?? Continue current management per primary service. ?? Patient was instructed to contact Regional Anesthesia Team ([phone]) for any unresolved sensory or motor deficits. ?? Thank you for the opportunity to have participated in the care of this patient. PEPE STOVER MD Regional Team pager [phone] Staci Kang MD - 06/25/2015 7:02 AM EDT Orthopaedic Surgery Progress Note SURGERY/ISSUE: s/p L TKA ATTENDING: Lisa Patient Active Problem List Diagnosis Code ??? Hypothyroidism 244.9 ??? Primary osteoarthritis of left knee 715.16 ??? S/P left total knee arthroplasty 06/24/15 Lisa V43.65 Interval History: No major issues, pain well controlled, Denies CP/SOB/N/V. Stood several times lastnight to bedside commode Temp: [36.2 ??C (97.2 ??F)-36.5 ??C (97.7 ??F)] Heart Rate: [57-66] Resp: [15-34] BP: (102-132)/(55-75) SpO2: [93 %-99 %] I/O this shift: In: 700 [I.V.:700] Out: 50 [Blood:50] PE: Gen- AOx3, NAD HEENT- NCAT CV- RRR checked peripherally Pulm- No incr WOB LLE Mark wrap in place, c/d/i SITLT in DP/SP/T Firing EHL/TA/GC Foot WWP Last 3 wbc, hgb, hct plt Recent Labs 06/18/15 1124 WBC 5.7 HGB 12.7 HCT 38.7 PLATELET 327 Last 3 Coags No results for input(s): PT, INR, PTT in the last 168 hours. Last CRP, SEDRATENo results for input(s): CRP, SEDRATE in the last 7068 hours. A/P: 74 y.o. female POD#1 L TKA. Currently stable, plan to mobilize with PT today ?? Activity: WBAT ?? Pain Control: well controlled on orals ?? Antibiotics: perioperative ancef ?? Anticoagulation: aspirin ?? Dressing: Mepilex x7days, monocryl ?? Dispo: home vs rehab per PT ?? Follow up:In 4 weeks with xrays of L knee with Dr. Lisa Kang MD Orthopaedic Surgery Pager [phone] Future Appointments Date Time Provider Department Center 07/30/2015 1:20 PM Latisha Gonzalez MD [facility] [address] CLIN Concepcion Daniels RN - 06/24/2015 5:13 PM EDT Pt arrived to floor from PACU after left TKA. Pt alert and oriented x4. Pt reports pain 09/08. Pt denies any chest pain, shortness of breath, dizziness or nausea. Refer to doc flow sheets for full assessment. Patient oriented to room with call ann within reach. Masimo on. Will continue to monitor. Ashish Cameron MD - 06/24/2015 11:43 AM EDT Orthopaedic Surgery Post-Operative Progress Note Surgery: Left total knee arthroplasty Patient Active Problem List Diagnosis Code ??? Hypothyroidism 244.9 ??? Primary osteoarthritis of left knee 715.16 ??? S/P left total knee arthroplasty 06/24/15 Jevsevar V43.65 Patient seen: In PACU Subjective/Events: Alert, oriented and conversant. Following commands. Patient denies chest pain, shortness of breath, dizziness, headache, abdominal pain, nausea, vomiting. Pain well-controlled. Objective: Vitals: Temp: [36.2 ??C (97.2 ??F)-36.5 ??C (97.7 ??F)] Heart Rate: [57-66] Resp: [12-34] BP: (93-132)/(46-82) SpO2: [93 %-99 %] I/O this shift: In: 700 [I.V.:700] Out: 50 [Blood:50] Exam: General: NAD, awake/alert, responds to questions CV: RRR Resp: Breathing comfortably, lungs CTAB Abd: Soft, nontender, nondistended LLE: In CryoCuff, underlying MARK wrap c/d/i Sensory intact to light touch in sural/saph/SP/DP/T Motor intact to FHL/EHL/TA/gastroc/soleus Brisk capillary refill distally, 1+ DP pulse No results for input(s): WBC, HGB, HCT, PLATELET, NA, K, CL, CO2, BUN, CREATININE in the last 72 hours. Radiology: None in past 24 hours A/P: 74 y.o. year old female POD#0 s/p left total knee arthroplasty. Vitals stable, uop adequate. - WBAT LLE - DVT prophylaxis: ASA - Regular diet - Dispo: Per PT Future Appointments Date Time Provider Department Center 07/30/2015 1:20 PM Latisha Gonzalez MD [facility] [address] [place] [address] ASHISH CAMERON MD P: [phone] Anjali Mendoza RN - 06/24/2015 10:47 AM EDT Pt received into pacu station 3. Placed on monitor with alarms active and audible and with appropriate settings. VSS. Spinal resolving. Unable to void and s/c'ed for 900 cc @ 1030. A/OX4. Daughter in to visit. Awaiting ortho floor bed. Pt had uneventful wake-up and awaiting available floor. 1600 Pt voided 250 cc clear yellow urine in bedpan. Dr. Ashish Cameron called for clarification of code status. documented in this encounter H&P Notes Staci Kang MD - 06/24/2015 7:08 AM EDT Patient Name: Zahida Bond Patient Age: 74 y.o. Birthdate: 1940 Admit date: 06/24/2015 Attending Physician: Latisha Gonzalez MD 24-HOUR UPDATE Zahida Bond was seen in NMP. No interval events or changes in health status since preoperativeH+P (see EPIC). Denies angina/dyspnea/fevers or malaise within the last 14 days. All questions were answered. Stable for surgery as scheduled. documented in this encounter Miscellaneous Notes Care Management - Colten Moreau RN - 06/25/2015 3:02 PM EDT Chart reviewed and met with pt who is sitting up in cardiac chair, fully dressed, in NAD. 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 Pt had L TKA yesterday with Dr Corey. Pt denies the need for in-pt rehab and feels she can manage at home with VNA. Pt requests [facility] (pt states her had them 7 yrs ago and theydid a great job) Pt will be on ASA, SQ sutures, and Home PT 3xwk. Pt's dtr is picking her up within the hr. Initial Assessments - Anupam Shah, OT - 06/25/2015 1:20 PM EDT Occupational Therapy Evaluation Patient profile: Zahida Bond is a 74 y.o. female patient of Latisha Faria MD, admitted on 06/24/2015 for L TKA due to OA. No past medical history on file. Past Surgical History Procedure Laterality Date ??? 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 Precautions/Special Considerations: Code: full code Activity: WBAT LLE Subjective: I had nausea and vomiting yesterday. Objective: Patient was seen today for OT evaluation. Cognitive Status/Behavior: Alert, oriented, cooperative, motivated for independence. Communication/Vision/Perception: WFL Range of motion, strength, coordination, sensation: Bilateral UEs are within functional limitations RLE: WFL LLE: Painful knee but very flexible, reaches foot for lower body self care. Activities of Daily Living: Upper and lower body dressing and bathing: ?? Independent donning pants, sock and shoe. ?? Able to stand at sink with FWW, independently for sink level ADLS. Toileting: independent Functional Mobility: Supine to sit: n/a Sit to stand: independent to FWW Ambulation: 150' with FWW with supervision Stand to sit: independent Sit to supine: n/a Balance: sitting good; standing with FWW: good. IADL???s: Assistance available to patient. Endurance: Information taken from last recorded vitals in flowsheet. Last value Range last 8 hrs Heart Rate Heart Rate: 68 Heart Rate: [63-76] Blood Pressure BP: 110/54 mmHg BP: (94-110)/(50-54) SpO2 SpO2: 98 % SpO2: [93 %-98 %] On room air Pain: 1-10/09 through session, reports it is improved compared to the pain she was living with. Skin: LLE: Covered with mark wrap. Informed Consent: The patient agrees to and understands the OT treatment plan to evaluate. Education: Patient has been educated on Role of occupational therapy/rehabilitation, ADL, Safety, Functional Mobility, Recommendations and Discharge planning and verbalizes understanding. Patient status, treatment, and mobility recommendations discussed with nursing. Assessment: Patient presents with impaired ability to perform daily activities and functional mobility secondary to L TKA, patient reports the pain is much improved considering what she lived with before. Patient tolerated evaluation very well. Patient will benefit from ongoing OT services to maximize functional independence while hospitalized. Recommendations: Equipment needs at discharge: Patient has all necessary equipment Discharge Recommendations: No more OT indicated Staff Recommendations: Encourage out of bed activity and participation in daily self-care tasks Plan: D/C OT. Eval date: 06/25/2015 Total time spent with patient: 26 minutes Total timed interventions: 0 minutes Pager: [phone] ANUPAM SHAH OT 06/25/2015 Occupational Therapy Rehabilitation Department Initial Assessments - Shannon Pratt, PT - 06/25/2015 11:00 AM EDT Physical Therapy Evaluation Total Knee Arthroplasty Patient Profile: Pt. is a 74 y.o. female admitted on 06/24/2015 by Latisha Faria MD for L TKA secondary to left knee OA. PMH: No past medical history on file. PSH: Past Surgical History Procedure Laterality Date ??? Pro total knee arthroplasty Left 06/24/2015 @TOTAL KNEE ARTHROPLASTY performed by Latisha Gonzalez MD at [facility] MAIN OR Social History: Patient lives alone on the first level of a two level home. Her two daughters are staying with her initially. There is a ramp to enter. PLOF: Pt independent with ADLs, IADLs and mobility without an AD. Pt drives. DME: FWW, ski poles, shower chair Precautions/Special Considerations: WBAT LLE Post-operative course: Uneventful Subjective: Patient states ???I am surprised I feel so good?? Objective: Vitals: SpO2: 96%, HR 61 Most recent Hgb value: 10.5 Pain: 0/10 at rest; 2/10 at worst with exercises Strength: WFL; 3/5 L knee extensor Functional Mobility: Supine->sit: Independent, HOB flat, no rails Sit->supine: Independent, HOB flat, no rails Sit->stand: Independent Stand->sit: Independent Gait: Ambulated using FWW and modified independence. Gait pattern: Slow and steady, step-through pattern with decreased WBing through LLE. Cued to increase L knee extension during stance to prevent knee buckling. Pt. to utilize FWW and modified independence to ambulate with nursing staff. Stairs: Pt negotiated 2 steps using one rail ascending/descending sideways with ernst UE on the rail with supervision. Today???s Treatment: 1. Evaluation 2. Performed 10 reps each ankle pumps, quad sets, short arc quads, seated heel slides, and long arc quads. Pt in possession of handout illustrating the exercises and was instructed to perform them as able 3x per day. Informed Consent: The patient agrees to and understands the PT treatment plan and goals. Education: patient educated on Bed mobility, Transfers, Assistive device/technique, Stairs, Exercise, Safety , Precautions/protocol, Gait , Activity pacing/Energy conservation, Role of therapy, Balance and Discharge planning and verbalizes understanding. Patient status, treatment, and mobility recommendations discussed with nursing staff. Assessment: Pt is POD#1 L TKA. Pt. tolerated today???s session well. Pt demonstrates the ability to perform bed mobility, transfers, gait and stairs safely at the independent/supervision level. Pt's daughters willbe available to assist / upon d/c. Pt has met all PT goals at this time and safe to d/c home froma PT standpoint with support of family and home PT once medically ready. Range of Motion: AROM R knee extension = WNL, flexion = WNL; AROM L knee extension = -10, flexion = 94 Ambulation distance: 150 feet Goals: (to be achieved by 06/28/15) Goal met? Yes No Pt will be knowledgeable of prescribed exercises. x Pt will demonstrate AROM knee extension 0-15 degrees and flexion 80-90 degrees x Pt will move supine<>sit independently. x Pt will move sit<>stand independently. x Pt will ambulate 150 feet using FWW and supervision x Discharge Recommendations: Patient would benefit from continued therapeutic interventions 2-3 times a week as provided in a home environment to progress toward functional goals. Physical Therapist recommends: No other consults recommended at this time Plan: Pt safe to d/c from PT standpoint once medically ready. Will continue to monitor pt while hospitalized and address any needs/concerns if they arise. Patient agrees to the plan as stated. Equipment needs: Patient has all necessary equipment. Activity plan w/nursing assist (discussed with nursing staff): Ambulate with FWW and mod independence 3-4x/day or as tolerated by pt Total treatment time: 30 minutes Total timed treatment: 0 minutes (initial evaluation) SHANNON PRATT, PT Pager: [phone] Plan of Care - Haley Britt RN - 06/25/2015 8:08 AM EDT Problem: Knee Replacement, Total (Adult) Goal: Signs and symptoms of listed potential problems will be absent or manageable (reference (Knee Replacement, Total (Adult)) CPG) Outcome: Ongoing (Interventions Implemented as Appropriate) 06/25/15 08 Knee Replacement, Total Problems Assessed (Total Knee Replacement) all Problems Present (Total Knee Replacement) acute pain Problem: General Plan of Care Goal: Plan of Care Review Outcome: Ongoing (Interventions Implemented as Appropriate) 06/25/15 08 Plan of Care Review Plan of Care Outcome Status ongoing (interventions implemented as appropriate) Progress progress toward functional goals as expected Coping/Psychosocial Response Interventions Plan of Care Reviewed with patient OUTCOME EVALUATION NOTE: OUTCOME SUMMARY: Pt with minimal pain to left knee. Pt taking scheduled Tylenol and Toradol. No oxycodone given. Nausea and emesis x 2 when mobilizing. Resolved quickly. No antiemetics given. Also complained of some dizziness when OOB which resolved quickly. Voiding good amounts on commode. PLAN MOVING FORWARD: Encourage Po fluids PT/OT Mobilize as tolerated Pain control INDIVIDUALIZED FALL PREVENTION: Assistance: OOB with front wheeled walker and 1 assist Supervision: Hands on Surveillance: Masimo and purposeful rounding CPG GOAL OUTCOME EVALUATION: Goal: Individualization and Mutuality Outcome: Ongoing (Interventions Implemented as Appropriate) Goal: Fall Prevention-Safe Patient Handling Outcome: Ongoing (Interventions Implemented as Appropriate) 06/24/152118 Froilan Fall Risk History of Falling 0 Secondary Diagnosis 15 Ambulatory Aids 15 Intravenous Therapy/Heparin/Saline Lock 20 Gait/Transferring 10 Mental Status 0 Score 60 Activity and Safety Assistive Device Front wheel walker OTHER Mcgovern Fall Risk High Safety Interventions Safety Precautions/Fall Reduction assistive device;environmental modification;fall reduction programmaintained;nonskid shoes/slippers when out of bed;room near unit station;consumer safety inspector Musculoskeletal Interventions Activity/Level of Assistance up in room;with walker;with 1-person assist Positioning independent;with 2-person assist (2 person for boost in bed) Muscle Strengthening activity/mobility promoted;mobility in bed promoted Self-Care Promotion independence encouraged while providing assistance Goal: Infection Control Outcome: Ongoing (Interventions Implemented as Appropriate) 06/24/15 1650 06/24/152118 Coping/Psychosocial Response Interventions Counseling goal setting facilitated;calming techniques promoted;emotional support provided -- Safety Interventions Infection Prevention -- environmental surveillance;rest/sleep promoted Goal: Discharge Needs Assessment 06/25/15 0300 Living Environment Transportation Available family or friend will provide Problem: Pain, Acute (Adult, Obstetrics) Goal: Identify Signs and Symptoms and Related Risk Factors Signs and symptoms and related risk factors are identified upon initiation of Human Response Clinical Practice Guideline (CPG) Outcome: Ongoing (Interventions Implemented as Appropriate) 06/25/15 0800 Pain, Acute Related Risk Factors (Acute Pain) surgery Signs and Symptoms (Acute Pain) guarding/abnormal posturing/positioning Goal: Acceptable Pain Control/Comfort Level Patient will demonstrate the desired outcomes. Outcome: Ongoing (Interventions Implemented as Appropriate) 06/25/15 0800 Pain, Acute (Adult, Obstetrics) Acceptable Pain Control/Comfort Level making progress toward outcome Op Note - Latisha Gonzalez MD - 06/24/2015 9:19 AM EDT [facility] Operative Note Patient Name: Zahida Bond : [id number] MR#: [id number] Case Date: 06/24/2015 Surgeon: Surgeon(s) and Role: * Latisha Gonzalez MD - Primary * Staci Kang MD - Resident-Surgeon Levar Preoperative diagnosis: Left knee OA Postoperative diagnosis: Left knee OA Procedure(s): @TOTAL KNEE ARTHROPLASTY MODIFIER, ATTUNE CURVED FIXED PLATFORM, DEPUY Anesthesia: Anesthesia type not filed in the log. Estimated Blood Loss: 50 mL Specimens removed during surgery: Synovium for study Drains: Surgical Closure: Primary Closure - closure of ALL tissue levels during the original surgery regardless of wires, wickes, drains, or other devices extruding through the incision Disposition: awakened from anesthesia, extubated and taken to the recovery room in a stable condition, having suffered no apparent untoward event. Condition: doing well without problems (Please see the Surgical Encounter Summary for any Implant and Specimen details pertinent to this patient.) HPI/Surgical Indications: CLARIFICATION NEEDED: PLEASE CHECK ONE BLANK. DATE: 06/24/2015 HISTORY OF PRESENT ILLNESS/SURGICAL INDICATIONS: Mrs. Bond is a very pleasant 74-year-old female with a long history of left knee pain and osteoarthritis that has not responded to conservative measures. The risks, benefits, and alternatives of left knee arthroplasty were discussed with the patient. The risks included but were not limited infection, stiffness, recurrent pain, injury to the vessel or nerve, DVT/PE, fracture-dislocation, loosening, malalignment, need for additional surgery, loss of limb and/or life. All questions were answered, and she wished to proceed. PROCEDURE DESCRIPTION: Following induction of the anesthesia, the patient was placed supine on the operating room table. All bony prominences were all well padded. A tourniquet was applied to upper left thigh and she was prepped and draped in normal sterile fashion. Following Esmarch exsanguination, tourniquet was inflated to 275 mmHg. A standard midline incision was performed. Dissection was carried medially in the subvastus type approach. An L-shaped medial parapatellar arthrotomy was performed and dissection was carried medially and laterally around the proximal tibia. The patella was then subluxed. The knee brought into flexion. There were marked degenerative changes, best seen in the medial patellofemoral compartments. Two small pieces of synovium were harvested from the suprapatellar pouch and sent for the DNA study. Using the femoral intramedullary guide, a distal femoral resection was performed. The femur was sized to a size 5 component in appropriate external rotation. The anterior, posterior, and chamfer cuts were performed. The medial and lateral meniscal ramus and the anterior and posterior cruciate ligaments were then resected. Retractors were placed about the proximal tibia. Using the extramedullary tibial alignment guide in appropriate varus and valgus rotational alignment, a proximal tibial resection was performed. The tibia was sized to a size 4 component. The appropriate keel punch was used. We then trialed initially with a 10, subsequently a 12-mm insert. The knee had a range of motion of 0 to 135 degrees and had excellent medial and lateral stability, both in flexion and extension. There was no posterior instability. The patella was then everted and a patellar resection of 9.5 mm was performed. It was sized to a 35-mm component and the appropriate drill guide was used. I then trialed with 35-mm patellar trial and the patella tracked centrally within the trochlear notch. All trial components were removed. There were no posterior osteophytes. 20 mL of 0.25% Marcaine was injected in the posterior capsule and the knee was copiously irrigated with antibiotic solution using pulsatile lavage. Using polymethylmethacrylate cement for all components, the size 4 tibial component was impacted on the tibia. Excess cement was removed. A 12-mm insert was impacted on the tibial component. A size 5 femoral component was then impacted on the distal femur. Again excess cement was removed. The knee was brought into full extension. The ankle was placed in a sack of soft <___> for compression. A 35-mm patellar component was then impacted on the patella and held with a large squeezing clamp. Excess cement was removed. Following cement hardening, the knee had a range of motion of 0 to 135 degrees. The patella tracked centrally within trochlear notch and with excellent medial and lateral stability both in flexion and extension. There was no posterior instability. After copious irrigation, the arthrotomy incision was closed with 0 Vicryl sutures and then a #2 Quill suture. The knee was hyperflexed. Tourniquet was deflated. Total tourniquet time was 1 hour and 7 minutes. The subcutaneous tissues were irrigated and closed with 2-0 Vicryl sutures and the skin was closed with running subcuticular stitch of 3-0 Monocryl. A Mepilex dressing was then applied. Estimated blood loss was less than 50 mL. The patient tolerated the procedure well. She was taken from the operating room to the recovery room in stable condition. Infection Bundle used? N/A Attestation: Case Date: 06/24/2015 I was present and I participated during the entire procedure (does not need to include opening and closing). Weight bearing status of operative extremity: Weight bearing as tolerated Wound closure: Resorbable sutures Dressing changes: Mepilex Silver (Do not remove for 7 days. Dry Dressings PRN after that) Follow-up Plan: One month with X-rays Anticoagulation: Aspirin 325 mg twice daily x 6 weeks Any possible barriers to discharge: None Plan for hospital stay: Standard Anticipated Length of Stay: 1-3 days. LATISHA GONZALEZ MD 06/24/2015 Brief Op Note - Latisha Gonzalez MD - 06/24/2015 9:19 AM EDT Brief Operative Note Patient Name: Zahida Bond : [id number] MR#: [id number] Case Date: 06/24/2015 Surgeon: Surgeon(s) and Role: * Latisha Gonzalez MD - Primary * Staci Kang MD - Resident-Surgeon Levar Preoperative diagnosis: Left knee OA Postoperative diagnosis: Left knee OA Procedure(s): @TOTAL KNEE ARTHROPLASTY MODIFIER, ATTUNE CURVED FIXED PLATFORM, DEPUY Anesthesia: Anesthesia type not filed in the log. Findings: marked medial nad patellofemoral degenerative changes Complications: none Fluids: 800ml Estimated Blood Loss: 50 mL Drains: Disposition: awakened from anesthesia, extubated and taken to the recovery room in a stable condition, having suffered no apparent untoward event. Condition: doing well without problems Infection Bundle used? N/A Attestation: Case Date: 06/24/2015 I was present and I participated during the entire procedure (does not need to include opening and closing). (Please see the Surgical Encounter Summary for any Implant and Specimen details pertinent to this patient.) documented in this encounter Plan of Treatment Not on filedocumented as of this encounter Procedures Procedure Name Priority Date/Time Associated Comments Diagnosis IMPLANTABLE DEVICES 06/26/2015 12:00 SCAN AM EDT GAS MAIN AND LINE FITTER SCAN 06/26/2015 12:00 AM EDT HEMOGRAM Routine 06/25/2015 4:44 AM Results f or this EDT procedure are i n the results section. DIFFERENTIAL, Routine 06/25/2015 4:44 AM Results for this AUTOMATED EDT procedure are i n the results section. CBC (WITH DIFF) Routine 06/25/2015 4:44 AM EDT BASIC METABOLIC PANEL Routine 06/25/2015 4:44 AM Results for this (NON-FASTING) EDT procedure are in the results section. MODIFIER, ATTUNE 06/24/2015 7:28 AM Left knee pa in CURVED FIXED EDT Primary localized PLATFORM, DEPUY osteoarthrosis, lower leg, left TOTAL KNEE 06/24/2015 7:28 AM Left knee bennett n ARTHROPLASTY (WRVU EDT Primary localized 20.72) osteoarthrosis, lower leg, left documented in this encounter Results SCAN DOC: IMPLANTABLE DEVICES (06/26/2015 12:00 AM EDT) Narrative This result has an attachment that is no t available. Scanning Provider MEDIA MGR SCAN EXT ORDR/RSLT SCAN DOC: GAS MAIN AND LINE FITTER (06/26/2015 12:00 AM EDT) Narrative This result has an attachment that is no t available. Scanning Provider MEDIA MGR SCAN EXT ORDR/RSLT (ABNORMAL) Differential, Automated (06/25/2015 4:44 AM EDT) [facility] Method Time Signature Neutrophils % 82.7 % CERNER MILLENNIUM Neutr Abs (ANC) 6.79 (H) 1.50 - CERNER 6.30 MILLENNIUM x10(3)/mc L Lymphocytes % 12.4 % CERNER MILLENNIUM Lymphocytes Abs 1.0 1.0 - 3.6 CERNER x10(3)/mc MILLENNIUM L Monocytes % 4.9 % CERNER MILLENNIUM Monocyte Abs 0.4 0.2 - 1.0 CERNER x10(3)/mc MILLENNIUM L Eosinophils % 0.0 % CERNER MILLENNIUM Eosinophils Abs 0.0 0.0 - 0.5 CERNER x10(3)/mc MILLENNIUM L Basophils % 0.0 % CERNER MILLENNIUM Basophils Abs 0.0 0.0 - 0.2 CERNER x10(3)/mc MILLENNIUM L Immature Gran % 0.00 % CERNER MILLENNIUM [...] Location / / Volume Laterality Blood specimen 06/25/2015 4:44 AM 015 5:01 (specimen) EDT AM EDT Resulting Agency Comment Spec In Lab Latisha Gonzalez MD HEMATOLOGY ORDERABLES Performing Organization Address City/State/ZIP Code Phon e Number [place] [id number] CERNER MILLENNIUM (ABNORMAL) Hemogram (06/25/2015 4:44 AM EDT) P athologist Signature WBC 8.2 4.0 - 10.0 CERNER x10(3)/mcL MILLENNIUM RBC 3.60 (L) 3.93 - CERNER 5.22 MILLENNIUM x10(6)/mcL Hemoglobin 10.5 (L) 11.2 - CERNER 15.7 gm/dL MILLENNIUM Hematocrit 31.6 (L) 34.0 - CERNER 45.0 % MILLENNIUM MCV 87.8 79.0 - CERNER 94.0 fL MILLENNIUM MCH 29.2 26.6 - CERNER 32.2 pg MILLENNIUM MCHC 33.2 32.0 - CERNER 36.5 gm/dL MILLENNIUM Platelets 226 145 - 370 CERNER x10(3)/mcL MILLENNIUM RDWSD 44.2 35.0 - CERNER 46.0 fL MILLENNIUM RDWCV 13.7 10.9 - CERNER 14.4 % MILLENNIUM MPV 9.7 9.0 - 12.0 CERNER fL MILLENNIUM Specimen Anatomical Collection Method Collection Time Receive d Time (Source) Location / / Volume Laterality Blood specimen 06/25/2015 4:44 AM 015 5:01 (specimen) EDT AM EDT Resulting Agency Comment Spec In Lab Latisha Gonzalez MD HEMATOLOGY ORDERABLES Performing Organization Address City/State/[place] [address] CERNER MILLENNIUM (ABNORMAL) Basic Metabolic Panel (non-fasting) (06/25/2015 4:44 AM EDT) athologist Signature Glucose Lvl 164 65 - 199 CERNER mg/dL MILLENNIUM Comment: Diabetes: >=200 mg/dL plus symp toms BUN 10 8 - 18 mg/dL CERNER MILLENNIUM Creatinine 0.62 (L) 0.70 - 1.20 mg/dL CERNER MILL ENNIUM Comment: Please note that the pediatric reference intervals supplied above were not validated at [facility]. Results from pediatri c patients should be interpreted in conjunction to the patient's age, height and muscle mass. Sodium 140 135 - 145 mmol/L CERNER ARIS NIUM Potassium 4.2 3.5 - 5.0 mmol/L CERNER ARIS NIUM Comment: Please note: ??Patients with WBC >100,00 0 may have falsely elevated Potassium levels. ??For accurate Potassium quantif ication in these patients send serum separator tube (gold top) for subsequent determinations. ??Contact the Clinical Chemistry Laboratory if there are any qu estions. Chloride 103 98 - 107 mmol/L CERNER MILLENN IUM CO2 24 22 - 31 mmol/L CERNER MILLENNI UM Anion Gap 13 5 - 15 mmol/L CERNER MILLENNIU M Calcium 8.5 8.5 - 10.5 mg/dL CERNER ARIS NIUM [...] the following links into your internet browser. http://Keemotion/DHnkdep http://Keemotion/DHMCnkf Specimen Anatomical Collection Method Collection Time Receive d Time (Source) Location / / Volume Laterality Blood specimen 06/25/2015 4:44 AM 015 5:01 (specimen) EDT AM EDT Resulting Agency Comment Spec In Lab Latisha Gonzalez MD CHEMISTRY ORDERABLES Performing Organization Address City/State/[place] [address] INDRA FELICIANO documented in this encounter Visit Diagnoses Diagnosis Left knee pain Pain in joint, lower leg Primary localized osteoarthrosis, lower leg, left Status post total left knee replacement documented in this encounter Administered Medications Inactive Administered Medications - up to 3 most recent administrations Medication Order MAR Action Action Date Dose Rate Site acetaminophen (TYLENOL) tablet Given 06/24/2015 6:13 AM EDT 500 mg 1,000 mg 1,000 mg, Oral, ONCE, 1 dose, On Wed06/24/15 at 0630, Administer on arrival in Same Day Program, Day of Surgery (Day of Procedure), Routine acetaminophen (TYLENOL) tablet 1,000 mg Given 06/25/2015 1:22 PM EDT 1,000 mg 1,000 mg, Oral, EVERY 8 HOURS SCHEDULED, First dose on Wed06/24/15 at 1400, Until Discontinued, Maximum dose of acetaminophen is 4000 mg from all sources in 24 hours., Recovery (Recovery-Hospital Unit), Routine Given 06/25/2015 6:26 AM EDT 1,000 mg Given 06/24/2015 9:19 PM EDT 1,000 mg aspirin EC tablet 325 mg Given 06/25/2015 9:01 AM EDT 325 mg 325 mg, Oral, 2 TIMES DAILY, First dose on Wed06/25/15 at 0900, Until Discontinued, Recovery (Recovery-Hospital Unit), Routine ceFAZolin (ANCEF) 1g in dextrose 5% Given 06/25/2015 2:47 AM EDT 1,000 mg 100 mL/hr 50mL 1,000 mg (1 g), Intravenous, EVERY 8 HOURS, 3 doses, First dose on Wed06/24/15 at 1015, Last dose on Wed06/25/15 at 0215, Administer over 30 Minutes, Adjust to 4 hours from intraoperative dose. * Beta-lactam based antibiotics (eg. Ampicillin, Cefazolin, Aztreonam) should be administered within 4 hours of the preceding intraoperative dose. * Vancomycin, Flouroquinolones, Clindamycin, Gentamicin, and Metronidazole should be administered within 8 hours of the preceding intraoperative dose., Recovery (Recovery-Hospital Unit), Indication for (Active or Suspected): Prophylaxis Given 06/24/2015 6:12 PM EDT 1,000 mg 100 mL/hr Given 06/24/2015 11:03 AM EDT 1,000 mg 100 mL/hr celecoxib (CeleBREX) capsule 200 mg Given 06/25/2015 9:01 AM EDT 200 mg 200 mg, Oral, 2 TIMES DAILY, First dose on Wed06/24/15 at 2100, Until Discontinued, Recovery (Recovery-Hospital Unit), Routine Given 06/24/2015 9:20 PM EDT 200 mg celecoxib (CeleBREX) capsule 400 mg Given 06/24/2015 6:14 AM EDT 400 mg 400 mg, Oral, ONCE, 1 dose, On Wed06/24/15 at 0630, Administer on arrival to Same Day Program, Day of Surgery (Day of Procedure), Routine dexamethasone (DECADRON) tablet 4 mg Given 06/25/2015 9:01 AM EDT 4 mg 4 mg, Oral, DAILY, 2 doses, First dose on Wed06/24/15 at 1100, Last dose on Wed06/25/15 at 0900, Recovery (Recovery-Hospital Unit), Routine Given 06/24/2015 10:31 AM EDT 4 mg esomeprazole (NexIUM) capsule 20 mg Given 06/25/2015 9:01 AM EDT 20 mg 20 mg, Oral, DAILY, First dose on Wed06/24/15 at 1800, Until Discontinued, Recovery (Recovery-Hospital Unit), Routine Given 06/24/2015 6:12 PM EDT 20 mg gabapentin (NEURONTIN) capsule 300 mg Given 06/24/2015 6:14 AM EDT 300 mg 300 mg, Oral, ONCE, 1 dose, On Wed06/24/15 at 0630, Administer on arrival in Same Day Program, Day of Surgery (Day of Procedure), Routine gabapentin (NEURONTIN) capsule 600 mg Given 06/24/2015 6:11 PM EDT 600 mg 600 mg, Oral, EVERY EVENING, 2 doses, First dose on Wed06/24/15 at 1830, Last dose on Wed06/25/15 at 1700, Recovery (Recovery-Hospital Unit), Routine ketorolac (TORADOL) injection 15 mg Given 06/25/2015 6:27 AM EDT 15 mg 15 mg, Intravenous, EVERY 6 HOURS SCHEDULED, 4 doses, First dose on Wed06/24/15 at 1015, Last dose on Wed06/25/15 at 0600, Recovery (Recovery-Hospital Unit), Routine Given 06/25/2015 12:22 AM EDT 15 mg Given 06/24/2015 6:16 PM EDT 15 mg lactated ringers infusion 1,000 New Bag 06/24/2015 9:18 PM EDT 1,000 mLs 100 mL/hr mL 1,000 mL, at 100 mL/hr, Intravenous, CONTINUOUS, Starting on Wed06/24/15 at 1015, Until Wed06/25/15 at 1845, Recovery (Recovery-Hospital Unit) New Bag 06/24/2015 10:02 AM EDT 1,000 mLs 100 mL/hr levothyroxine (SYNTHROID) tablet 88 mcg Given 06/25/2015 6:27 AM EDT 88 mcg 88 mcg, Oral, EVERY MORNING, First dose on Wed06/25/15 at 0600, Until Discontinued, Recovery (Recovery-Hospital Unit), Routine lidocaine (XYLOCAINE) 10 mg/mL (1 %) injection Given 1 6:30 AM EDT 3 mg 3 mg 3 mg (0.3 mL), Subcutaneous, ONCE PRN, 1 dose, Starting on Wed06/24/15 at 0600, Until Wed06/24/15 at 0630, for discomfort with PIV insertion, Day of Surgery (Day of Procedure), Routine multivitamin Ogtb-Sh-LJ-Min (THERAPEUTIC-M) Given 05/31 9:01 AM EDT 1 tablet 27-0.4 mg tablet 1 tablet 1 tablet, Oral, DAILY, First dose on Wed06/24/15 at 1800, Until Discontinued, Recovery (Recovery-Hospital Unit) Given 06/24/2015 6:12 PM EDT 1 tablet oxyCODONE (OxyCONTIN) CR tablet 10 mg Given 06/24/2015 6:13 AM EDT 10 mg 10 mg, Oral, ONCE, 1 dose, On Wed06/24/15 at 0630, Administer on arrival in Same Day Program, Day of Surgery (Day of Procedure), Routine oxyCODONE (ROXICODONE) immediate release Given 06/24/2015 11:16 AM EDT 5 mg tablet 5 mg 5 mg, Oral, EVERY 4 HOURS PRN, Starting on Wed06/24/15 at 0957, Until Wed06/25/15 at 1845, Pain, mild pain (0-3), For mild pain (0-3)., Recovery (Recovery-Hospital Unit), Routine polyethylene glycol (MIRALAX) packet 17 g Given 06/25/2015 9:06 AM EDT 17 g 17 g, Oral, 2 TIMES DAILY, First dose on Wed06/24/15 at 2100, Until Discontinued, Recovery (Recovery-Hospital Unit), Routine senna-docusate (PERICOLACE) 8.6-50 mg per Given 2014 9:01 AM EDT 2 tablets tablet 2 tablet 2 tablet, Oral, 2 TIMES DAILY, First dose on Wed06/24/15 at 2100, Until Discontinued, Recovery (Recovery-Hospital Unit), Routine Given 06/24/2015 9:24 PM EDT 2 tablets sodium chloride 0.9 % flush 5 mL Given 06/25/2015 9:03 AM EDT 5 mLs 5 mL, Intravenous, 2 TIMES DAILY, First dose on Wed06/24/15 at 2100, Until Discontinued, Recovery (Recovery-Hospital Unit), Routine documented in this encounter Active and Recently Administered Medications Times are shown in EDT. Scheduled Medication Order 06/23/2015 06/24/2015 06/25/2015 acetaminophen (TYLENOL) tablet 1,000 mg (COMPLETED) 0613 (Given - Provider: Dewayne Romero RN - Comment: she took 650mg at home.) 1,000 mg, Oral, ONCE, 1 dose, Wed at 0630, Administer on arrival in Same Day Program, Day of Surgery (Day of Procedure), Routine acetaminophen (TYLENOL) tablet 1,000 mg 1405 (Given - Provider: Anjali Mendoza RN)2119 (Given - Provider: Haley Britt, ARIANA) 0626 (Given - Provider: Haley Britt, RN)1322 (Given - Provider: Lashon Resendiz, ARIANA) 1,000 mg, Oral, EVERY 8 HOURS SCHEDULED, First dose on Wed06/24/15 at 1400, Until Discontinued, Maximum dose of acetaminophen is 4000 mg from all sources in 24 hours., Recovery (Recovery-Hospital Unit), Routine aspirin EC tablet 325 mg 09 (G iven - Provider: Lashon Resendiz, ARIANA) 325 mg, Oral, 2 TIMES DAILY, First dose on Wed06/25/15 at 0900, Until Discontinued, Recovery (Recovery-Hospital Unit), Routine ceFAZolin (ANCEF) 1g in dextrose 5% 50mL (COMPLETED) 1103 (Given - Provider: Anjali Mendoza RN)1812 (Given - Provider: Concepcion Daniels RN) 0247 (Given - Provider: Haley Britt, ARIANA) 1,000 mg (1 g), Intravenous, EVERY 8 ALTON RS, 3 doses, First dose on Wed06/24/15 at 1015, Last dose on Wed06/25/15 at 0215, for 30 Minutes, Adjust to 4 hours from intraoperative dose. * Beta-lactam base d antibiotics (eg. Ampicillin, Cefazolin , Aztreonam) should be administered within 4 hours of the preceding intraoperative dose. * Vancomycin, Flouroquinolones, Clindamycin, Gentamicin, and Metronidazol e should be administered within 8 hours of the preceding intraoperative dose., Recovery (Recovery-Hospital Unit), Indication for (Active or Suspected): Prophylaxis ceFAZolin (ANCEF) 2g in dextrose 5% 50 mL (COMPLETED) 0876 (Given - Provider: Chloe Cao CRNA) 2 g, Intravenous, EVERY 3 HOURS, 1 dose, First dose on Wed06/24/15 at 0630, for 30 Minutes, Redose after 3 hours., Intra-Operative (Intra-Procedure), Indication for (Active or Suspected): Prophylaxis celecoxib (CeleBREX) capsule 200 mg (CANCELED) 2119 (Given - Provider: Haley Britt RN) 900 (Given - Provider: Lashon angeles RN) 200 mg, Oral, 2 TIMES DAILY, First dose on Wed06/24/15 at 2100, Until Discontinued, Recovery (Recovery-Hospital Unit), Routine celecoxib (CeleBREX) capsule 400 mg (COMPLETED) 613 (Given - Provider: Dewayne Romero RN) 400 mg, Oral, ONCE, 1 dose, Wed06/24/15 at 0630, Administer on arrival to Same Day Program, Day of Surgery (Day of Procedure), Routine dexamethasone (DECADRON) tablet 4 mg (COMPLETED) 1030 (Given - Provider: Anjali Mendoza RN) 900 (Given - Provider: Lashon angeles RN) 4 mg, Oral, DAILY, 2 doses, First dose o n Wed06/24/15 at 1100, Last dose on Wed06/25/15 at 0900, Recovery (Recovery-Hospital Unit), Routine esomeprazole (NexIUM) capsule 20 mg (CANCELED) 1811 (Given - Provider: Concepcion Daniels RN) 900 (Given - Provider: Lashon angeles RN) 20 mg, Oral, DAILY, First dose on Wed at 1800, Until Discontinued, Recovery (Recovery-Hospital Unit), Routine gabapentin (NEURONTIN) capsule 300 mg (COMPLETED) 613 (Given - Provider: Dewayne Romero RN) 300 mg, Oral, ONCE, 1 dose, Wed06/24/15 at 0630, Administer on arrival in Same Day Program, Day of Surgery (Day of Procedure), Routine gabapentin (NEURONTIN) capsule 300 mg 300 mg, Oral, EVERY EVENING, First dose on Wed06/26/15 at 1700, Until Discontinued, Recovery (Recovery-Hospital Unit), Routine gabapentin (NEURONTIN) capsule 600 mg (CANCELED) 1810 (Given - Provider: Concepcion Daniels RN) 600 mg, Oral, EVERY EVENING, 2 doses, Fi rst dose on Wed06/24/15 at 1830, Last dose on Wed06/25/15 at 1700, Recovery (Recovery-Hospital Unit), Routine ketorolac (TORADOL) injection 15 mg (COMPLETED) 1007 (Given - Provider: Anjali Mendoza RN)181 (Given - Provider: Concepcion Daniels, RN) 21 (Given - Provider: Haley Britt, ARIANA)626 (Given - Provider: Haley Britt RN) 15 mg, Intravenous, EVERY 6 HOURS SCHEDU LED, 4 doses, First dose on Wed06/24/15 at 1015, Last dose on Wed06/25/15 at 0600, Recovery (Recovery-Hospital Unit), Routine levothyroxine (SYNTHROID) tablet 88 mcg (CANCELED) 626 (Given - Provider: Haley Britt, ARIANA) 88 mcg, Oral, EVERY MORNING, First dose on Wed06/25/15 at 0600, Until Discontinued, Recovery (Recovery-Hospital Unit), Routine multivitamin Hlqs-Qd-WI-Min (THERAPEUTIC -M) 27-0.4 mg tablet 1 tablet (CANCELED) 1811 (Given - Provider: Concepcion Daniels RN) 900 (Given - Provider: Lashon Resendiz RN) 1 tablet, Oral, DAILY, First dose on Wed06/24/15 at 1800, Until Discontinued, Recovery (Recovery-Hospital Unit), Routine oxyCODONE (OxyCONTIN) CR tablet 10 mg (COMPLETED) 612 (Given - Provider: Dewayne Romero RN) 10 mg, Oral, ONCE, 1 dose, Wed06/24/15 at 0630, Administer on arrival in Same Day Program, Day of Surgery (Day of Procedure), Routine polyethylene glycol (MIRALAX) packet 17 g 2099 (Not Given - Provider: Haley Britt RN - Reason: See comment - Comment: nausea and vomiting earlier. Will start in am) 905 (Given - Provider: Lashon angeles RN) 17 g, Oral, 2 TIMES DAILY, First dose on Wed06/24/15 at 2100, Until Discontinued, Recovery (Recovery-Hospital Unit), Routine senna-docusate (PERICOLACE) 8.6-50 mg per tablet 2 tablet 2123 (Given - Provider: Haley Britt RN) 900 (Given - Provider: Lashon angeles RN) 2 tablet, Oral, 2 TIMES DAILY, First dos e on Wed06/24/15 at 2100, Until Discontinued, Recovery (Recovery-Hospital Unit), Routine sodium chloride 0.9 % flush 5 mL (CANCELED) 2100 (Not Given - Provider: Haley Britt RN - Reason: See comment - Comment: IV infusing) 0903 (Given - Provider: Lashon Resendiz RN) 5 mL, Intravenous, 2 TIMES DAILY, First dose on Wed06/24/15 at 2100, Until Discontinued, Recovery (Recovery-Hospital Unit), Routine tranexamic acid (CYKLOKAPRON) 1,080 mg i n sodium chloride 0.9% 110.8 mL (COMPLETED) 0734 (New Bag - Provider: Chloe Cao CRNA) 1,080 mg (15 mg/kg/dose ? 72 kg), Intravenous, ONCE, 1 dose, Wed06/24/15 at 0630, for 30 Minutes, Dilute tranexamic acid dose in 100 mL sodium chloride 0.9% prior to administration. For patients less than or equal to 200 kg infuse over 30 m inutes. For patients greater than 200 kg infuse over 60 minutes., Day of Surgery (Day of Procedure) Continuous Medication Order 06/23/2015 06/24/2015 06/25/2015 lactated ringers infusion 1,000 mL (CANCELED) 1002 (New Bag - Provider: Anjali Mendoza RN)2118 (New Bag - Provider: Haley Britt RN) 1,000 mL, at 100 mL/hr, Intravenous, CON TINUOUS, Starting Wed06/24/15 at 1015, Until Wed06/25/15 at 1845, Recovery (Recovery-Hospital Unit) PRN Medication Order 06/23/2015 06/24/2015 06/25/2015 bacitracin injection (CANCELED) 0905 (Given - Pr ovider: Latisha Gonzalez MD) ONCE PRN, Starting Wed06/24/15 at 0905, Until Wed06/24/15 at 1535, Intra- Operative (Intra-Procedure), Routine bisacodyl (DULCOLAX) suppository 10 mg 10 mg, Rectal, DAILY PRN, Starting Wed at 1636, Until Wed06/25/15 at 1845, Constipation, Administer if needed per patient's routine or if no bowel movement within 48 hours to achieve: 1) One b owel movement at least every 48 hours, A ND 2) Without straining. If multiple bowel medications ordered, consider adding bisacodyl if polyethylene glycol (MIRALAX), docusate/senna, or lactulose not suffi cient. If patient unable to take PO, may give NE if ordered, Recovery (Recovery- Hospital Unit), Routine BUpivacaine-EPINEPHrine 0.25 %-1:200,000 injection (CANCELED ) 09 (Given - Provider: Latisha Gonzalez MD) ONCE PRN, Starting Wed06/24/15 at 0905, Until Wed06/24/15 at 1535, Intra- Operative (Intra-Procedure), Routine lidocaine (XYLOCAINE) 10 mg/mL (1 %) injection 3 mg (COMPLET ED) 0630 (Given - Provider: Dewayne Romero, RN) 3 mg (0.3 mL), Subcutaneous, ONCE PRN, 1 dose, Starting Wed06/24/15 at 0600, Until Discontinued, for discomfort with PIV insertion, Day of Surgery (Day of Procedure), Routine oxyCODONE (ROXICODONE) immediate release tablet 5 mg 1116 (Given - Provider: Zeny Patel V, RN) 5 mg, Oral, EVERY 4 HOURS PRN, Starting Wed06/24/15 at 0957, Until Wed06/25/15 at 1845, Pain, mild pain (0-3), For mild pain (0-3)., Recovery (Recovery- Hospital Unit), Routine documented in this encounter Care Teams Certified Real Estate Appraiser Relationship Specialty Start Date End Date Elvia Downs MD PCP - General 02/15/15 [address] [place] [address] documented as of this encounter
--- OUTSIDE RECORDS SUMMARY | 2022-04-03 01:20 | XMS_ITS | Encounter Summary ---
:1940 Author Organization [place] [address] Care Team Providers Name Role Phone Shakira Downs MD Primary Care Provider Encounter Details Date Type Department Care Team Description 03/17/2016 [place] [facility] [place]ke Gonzalez [facility] Taye MD artificial knee [facility] [id number] [place] [phone] [facility] [place] [id number] Social History Tobacco Use Types Packs/Day Years Used Date Never Smoker Smokeless Tobacco: Never Used Alcohol Use Standard Drinks/Week Comments No 0 (1 standard drink = 0.6 oz pure alcoho l) Sex Assigned at Date Recorded Not on file documented as of this encounter Medications at Time of Discharge Medication Sig Dispensed Refills Start Date End Date naproxen sodium (ANAPROX) Take 220 mg by 0 220 mg Tablet mouth daily. levothyroxine (SYNTHROID) 88 Take 88 mcg by 0 mcg Tablet mouth daily. Calcium Carbonate-Vit D3-Min Take by mouth 0 600 mg calcium- 400 unit daily. Tablet documented as of this encounter Plan of Treatment Not on filedocumented as of this encounter Procedures Procedure Name Priority Date/Time Associated Diagnosis Comme nts XR KNEE AP & LAT Routine 03/17/2016 1:32 PM Presence of left R esults for this LEFT EDT artificial knee procedure ar e in joint the results section. documented in this encounter Results XR Knee AP & Lateral Left (Generic) (03/17/2016 1:32 PM EDT) Anatomical Region Laterality Modality Knee Left Digital Radiography Specimen (Source) Anatomical Location Collection Method / Collectio n Time Received Time / Laterality Volume Impressions 03/17/2016 1:53 PM EDT No significant interval changes. The left hip arthroplasty is in place with no complication. Trace of effusion in the l eft suprapatellar recess. Mild osteoarthritis changes of the right knee joint. Narrative 03/17/2016 1:53 PM EDT EXAMINATION: XR KNEE 1 OR 2 VIEW LEFT CLINICAL HISTORY: SWELLING AND CLICKING IN LEFT KNEE S/P TKA 2014 TECHNIQUE: AP standing of the bilateral knees and lateral left knee COMPARISON: 07/30/2015 FINDINGS: There is no acute fracture, no dislocati on. There is mild narrowing of the medial compartments of the right tibiofe moral joints. The left hip prosthesis is in good position. There is no periprosth etic lucency and no fracture. There is trace of joint effusion in the left suprapatellar recess. Procedure Note Qian Rodriguez MD - 03/17/2016 EXAMINATION: XR KNEE 1 OR 2 VIEW LEFT CLINICAL HISTORY: SWELLING AND CLICKING IN LEFT KNEE S/P TKA 2014 TECHNIQUE: AP standing of the bilateral knees and lateral left knee COMPARISON: 07/30/2015 FINDINGS: There is no acute fracture, no dislocati on. There is mild narrowing of the medial compartments of the right tibiofe moral joints. The left hip prosthesis is in good position. There is no periprosth etic lucency and no fracture. There is trace of joint effusion in the left suprapatellar recess. IMPRESSION No significant interval changes. The lef t hip arthroplasty is in place with no complication. Trace of effusion in the l eft suprapatellar recess. Mild osteoarthritis changes of the right knee joint. Zeke Gonzalez MD IMG DX ORDERABLES documented in this encounter Visit Diagnoses Diagnosis Presence of left artificial knee joint Knee joint replacement by other means documented in this encounter Care Teams Production Maintenance Mechanic Relationship Specialty Start Date End Date Shakira Downs MD PCP - General 02/15/15 [address] [place] [address] documented as of this encounter
--- OUTSIDE RECORDS SUMMARY | 2022-04-03 01:20 | XMS_ITS | Encounter Summary ---
:1940 Author Organization [place] [address] Care Team Providers Name Role Phone Elvia Downs MD Primary Care Provider Reason for Visit Auth/Cert - Closed Specialty Diagnoses / Procedures Referred By Contact Refer red To Contact Diagnoses Left knee OA Procedures PRO TOTAL KNEE ARTHROPLASTY @TOTAL KNEE ARTHROPLASTY Referral ID Status Reason Start Date Expiration Date Visits Requ ested Visits Authorized [id number] Closed 1 1 Encounter Details Date Type Department Care Team Description 06/24/2015 Surgery Main Operating Room Latisha Gonzalez, TO MACHELLE KNEE ARTHROPLASTY Bel Zhang MD (WRVU 20.72) [facility] [place] [address] [place] [address] [phone] (Wo rk) Social History Tobacco Use Types [...] Zahida Bond Patient Age: 74 y.o. Language: Comoran Race: White Ethnicity: Not nor Admit date: 06/24/2015 Discharge date and time: 06/25/2015 Attending Physician: Latisha Gonzalez MD Discharge Physician: Latisha Gonzalez MD Follow-up Recommendations for Providers: See discharge instructions for additional details. Future Appointments Date Time Provider Department Center 07/30/2015 1:20 PM Latisha Gonzalez MD [address] Inpatient Provider Contact Information: Latisha Gonzalez MD Joints: [phone] After hours and weekends, call [facility] Bath Mix Operator, , and have the Orthopedic resident paged. [...] bowel movement. You can also take an ibpc-aev-qhdmdzy medication, Miralax if needed to combat constipation. [...] 1. You will have followup appointments at [facility] as indicated below in Future Appointment and Orders. 2. You will need to have have x-rays prior to your follow-up appointment on 07/30. Please come to Radiology, desk 3T, 1 hour BEFORE that appointment for those x-rays. Future Appointments Date Time Provider Department Center 07/30/2015 1:20 PM Latisha Gonzalez MD [address] CLIN If you have questions or concerns: Wednesday through Wednesday, 8 AM - 5 PM, please call Latisha Faria MD's office at . If it is after 5 PM, the weekend, or holidays, please call and ask to speak with the Orthopedic resident on-call. Future Appointments and Orders Future Appointments Provider Department Dept Phone 07/30/2015 1:20 PM Latisha Gonzalez MD Orthopaedics [phone] Future Orders Complete By Expires Referral to Home Health - at DISCHARGE [[id number] CPT(R)] As directed Process Instructions: Scheduling Instructions: Comments: DISCHARGE DOCUMENTATION FOR [facility] (INCLUDING PATIENTS WITH MEDICARE COVERAGE BEING DISCHARGED HOME WITH [facility] SERVICES AND THOSE PATIENTS WITH MEDICARE COVERAGE WHO ARE BEING DISCHARGED HOME WITHHOSPICE SERVICES) PATIENT'S LOCATION: Zahida Bond [address] [facility] [phone] (home) Cell: No relevant phone numbers on file. Strip Tank Tender's Name: herself In discussion with the attending physician, it is certified that this patient is under their care and that they, or a nurse practitioner, clinical nurse specialist or physician's development assistant who is working directly with them, [...] for home health services. HOME HEALTH AGENCY: [facility] PHONE: [phone] FAX: [phone] Home care orders for Total Knee Replacements for PT: Detention(SN) eval if indicated on admission visit 1. [...] ELVIA DOWNS MD (General) [address] [place] [address] All A agencies which cover the area of patient's residence have been reviewed, either verbally or in writing, and patient/family have chosen the indicated home health care agency for home services. Questions: Agency name and contact information: [facility] Patient location post discharge: home What services are requested: Physical Therapy Start date: Responsible MD post discharge contact info: Primary Care Provider: ELVIA DOWNS MD (General) [phone] Discharge References/Attachments None documented in this encounter Discharge Instructions Discharge InstructionsDavid Yohana E, PA - 06/25/2015 2:37 PM EDT Activity: [...] bowel movement. You can also take an qgag-jry-lazamho medication, Miralax if needed to combat constipation. [...] 1. You will have followup appointments at [facility] as indicated below in Future Appointment and Orders. 2. You will need to have have x-rays prior to your follow-up appointment on 07/30. Please come to Radiology, desk 3T, 1 hour BEFORE that appointment for those x-rays. Future Appointments Date Time Provider Department Center 07/30/2015 1:20 PM Latisha Gonzalez MD [address] If you have questions or concerns: [...] as of this encounter Progress Notes Lashon Resnediz RN - 06/25/2015 4:45 PM EDT Patient [...] appointments. The discharge summary was faxed to [facility] and report was called. P atient left [...] was instructed to contact Regional Anesthesia Team ([id number]) for any unresolved sensory or motor deficits. ?? Thank you for the opportunity to have participated in the care of this patient. PEPE STOVER MD Regional Team pager [phone] Staci Kang MD - 06/25/2015 7:02 AM [...] Dr. Lisa Kang MD Orthopaedic Surgery Pager [phone] Future Appointments Date Time Provider Department Center 07/30/2015 1:20 PM Latisha Gonzalez MD [facility] [address] [place] [address] CLIN Concepcion Daniels, RN - 06/24/2015 5:13 PM EDT Pt [...] 07/30/2015 1:20 PM Latisha Gonzalez MD [facility] [address] [facility] ASHISH CAMERON MD P: [phone] Anj[address] Mendoza [...] 24-HOUR UPDATE Zahida Bond was seen in SDP. No interval events or changes in health [...] manage at home with [facility]. Pt requests [facility] (pt states her had them 7 [...] ARTHROPLASTY performed by Latisha Gonzalez MD at [facility] OR Social History: Patient lives [...] minutes Total timed interventions: 0 minutes Pager: [phone] ANUPAM SHAH OT 06/25/2015 Occupational Therapy Rehabilitation [...] ARTHROPLASTY performed by Latisha Gonzalez MD at [facility] OR Social History: Patient lives [...] level. Pt's daughters willbe available to assist 24/ upon d/c. Pt has met all PT [...] minutes (initial evaluation) SHANNON PRATT, PT Pager: [phone] Plan of Care - Haley Britt RN [...] Outcome: Ongoing (Interventions Implemented as Appropriate) 06/24/152118 Mcgovern Fall Risk History of Falling 0 Secondary Diagnosis 15 Ambulatory Aids 15 Intravenous Therapy/Heparin/Saline Lock 20 Gait/Transferring 10 Mental Status 0 Score 60 Activity and Safety Assistive Device Front wheel walker OTHER Mcgovern Fall Risk High Safety Interventions Safety Precautions/Fall Reduction assistive device;environmental modification;fall reduction programmaintained;nonskid shoes/slippers when out of bed;room near unit station;safety deposit clerk Musculoskeletal Interventions Activity/Level of Assistance up in [...] Gonzalez MD - 06/24/2015 9:19 AM EDT [facility] Operative Note Patient Name: Zahida Bond : [id number] MR#: [id number] Case Date: 06/24/2015 Surgeon: Surgeon(s) and Role: [...] Operative Note Patient Name: Zahida Bond : [id number] MR#: [id number] Case Date: 06/24/2015 Surgeon: Surgeon(s) and Role: [...] IMPLANTABLE DEVICES 06/26/2015 12:00 SCAN AM EDT COMMERCIAL DIRECTOR SCAN 06/26/2015 12:00 AM EDT HEMOGRAM Routine [...] MEDIA MGR SCAN EXT ORDR/RSLT SCAN DOC: COMMERCIAL DIRECTOR (06/26/2015 12:00 AM EDT) Narrative This result has an attachment that is no t available. Scanning Provider MEDIA MGR SCAN EXT ORDR/RSLT (ABNORMAL) Differential, Automated (06/25/2015 4:44 AM EDT) [facility] Method Time Signature Neutrophils % 82.7 % [...] Organization Address City/State/ZIP Code Phon e Number [place] [phone] CERNER MILLENNIUM (ABNORMAL) Hemogram [...] Organization Address City/State/ZIP Code Phon e Number [place] [phone] CERNER MILLENNIUM (ABNORMAL) Basic Metabolic Panel (non-fasting) (06/25/2015 4:44 AM EDT) P athologist Signature Glucose Lvl 164 65 - 199 CERNER mg/dL MILLENNIUM Comment: Diabetes: >=200 mg/dL plus symp toms BUN 10 8 - 18 mg/dL CERNER MILLENNIUM Creatinine 0.62 (L) 0.70 - 1.20 mg/dL CERNER MILL ENNIUM Comment: Please note that the pediatric reference intervals supplied above were not validated at [facility]. Results from pediatri c patients should be [...] the following links into your internet browser. [email or web address] [email or web address] Specimen Anatomical Collection Method Collection Time Receive d Time (Source) Location / / Volume Laterality Blood specimen 06/25/2015 4:44 AM 015 5:01 (specimen) EDT AM EDT Resulting Agency Comment Spec In Lab Latisha Gonzalez MD CHEMISTRY ORDERABLES Performing Organization Address City/State/[place] [address] [facility] documented in this encounter Visit Diagnoses Diagnosis Left knee pain Pain in joint, lower leg Primary localized osteoarthrosis, lower leg, left Status post total left knee replacement Left knee pain Pain in joint, lower leg Primary localized osteoarthrosis, lower leg, left documented in this encounter Administered Medications Inactive Administered Medications - up to 3 most recent administrations Medication Order MAR Action Action Date Dose Rate Site bacitracin injection Given 06/24/2015 9:05 50,000 Units 19- Surgical Site ONCE PRN, Starting on AM EDT Wed06/24/15 at 0905, Until Wed06/24/15 at 1535, Intra-Operative (Intra-Procedure), Routine BUpivacaine-EPINEPHrine 0.25 Given 06/24/2015 9:05 AM 20 mLs 19- Surgical Site %-1:200,000 injection EDT ONCE PRN, Starting on 06/24/15 at 0905, Until Wed06/24/15 at 1535, Intra-Operative (Intra-Procedure), Routine documented in this encounter Active and [...] 2g in dextrose 5% 50 mL (COMPLETED) 7879 (Given - Provider: Chloe Cao CRNA) 2 [...] Until Discontinued, Recovery (Recovery-Hospital Unit), Routine multivitamin Lfud-Ga-CV-Min (THERAPEUTIC -M) 27-0.4 mg tablet 1 tablet [...] patient unable to take PO, may give MN if ordered, Recovery (Recovery- Hospital Unit), Routine [...] Routine documented in this encounter Care Teams Mixing Engineer Relationship Specialty Start Date End Date Elvia Downs MD PCP - General 02/15/15 [address] [place] [address] documented as of this encounter
--- OUTSIDE RECORDS SUMMARY | 2022-04-03 01:20 | XMS_ITS | Encounter Summary ---
:1940 Author Organization [place] [address] Care Team Providers Name Role Phone Shakira Downs MD Primary Care Provider Reason for Visit Reason Comments Aftercare Of Tjr Lt TKA DOS 06/24/15 Encounter Details Date Type Department Care Team Description 09/17/2015 Office Visit Orthopaedics at [facility] Zeke Gonzalez Status post total [facility] MD [place] [address] [place] [address] ORTHOPAEDICS [place], [place] [address] Social History Tobacco Use Types Packs/Day Years Used Date Never Smoker Smokeless Tobacco: Never Used Alcohol Use Standard Drinks/Week Comments No 0 (1 standard drink = 0.6 oz pure alcoho l) Sex Assigned at Date Recorded Not on file documented as of this encounter Last Filed Vital Signs Vital Sign Reading Time Taken Comments Blood Pressure 117/74 09/17/2015 12:57 PM EST Pulse 91 09/17/2015 12:57 PM EST Temperature - - Respiratory Rate - - Oxygen Saturation - - Inhaled Oxygen Concentration - - Weight 74.3 kg (163 lb 11.2 09/17/2015 12:57 PM fully c lothed oz) EST Height 153.7 cm (5' 0.5) 09/17/2015 12:57 PM verbal EST Body Mass Index 31.44 09/17/2015 12:57 PM EST documented in this encounter Progress Notes Colten Hopper PA - 09/17/2015 1:16 PM EST Patient Name: Zahida Bond : 74 y.o. Case Date: 06-24-15 Surgeon: Florin Gonzalez Procedure: left total knee replacement HPI: Zahida Bond is a very pleasant 74 y.o. female who presents for a 3 months follow-up of the above procedure. The patient has been doing very well and her pain is markedly improved over preoperative status. No fevers, chills, nausea, vomiting, or symptoms of infection. Zahida has been ambulating with a cane and working with PT. ROS: Denies fevers, chills, night sweats, nausea, or vomiting. Physical Exam: Well-appearing female in no acute distress. Alert and Oriented x 3 and answers all questions appropriately. The incision is well healed, with no signs of infection. Knee Exam: Left Knee ROM: Extension:0 Flexion: 125 Alignment: 0-4 degrees Varus Stability: A/P Translation <5mm Varus <5mm Valgus <5mm Extension La degrees or less Patella Tracking: Normal Pulses Palpable: Left PT:Yes Left DP:Yes Motor/Sensory: Distal Motor: Normal Distal Sensory: Normal Quadriceps Strength: 5 X-RAYS: Multiple radiographic views were obtained at my request and reviewed with the patient. X-rays show a well-placed prosthesis with no evidence of fracture or loosening. ASSESSMENT/PLAN: 3 months post-op and doing well. Continue weightbearing as tolerated and working onrange of motion, and we will see her back in 9 months for repeat examination. X-rays will be needed at that time. Patient may return to normal activities as her pain and function allow. Signed: PEDRO LUIS INMAN documented in this encounter Plan of Treatment Not on filedocumented as of this encounter Visit Diagnoses Diagnosis Status post total left knee replacement documented in this encounter Care Teams Cooker Chip Relationship Specialty Start Date End Date Shakira Downs MD PCP - General 02/15/15 [address] [place] [address] documented as of this encounter
--- OUTSIDE RECORDS SUMMARY | 2022-04-03 01:20 | XMS_ITS | Encounter Summary ---
:1940 Author Organization [facility] Address [address] [place] [address] Care Team Providers Name Role Phone Shakira Downs MD Primary Care Provider Encounter Details Date Type Department Care Team Description 11/01/2008 Before PRISM Converted [facility] Dwons, Visit (Maple) Lara pena MD [address] [place] [address] [place] [address] Social History Tobacco Use Types Packs/Day Years Used Date Never Assessed Sex Assigned at Date Recorded Not on file documented as of this encounter Plan of Treatment Not on filedocumented as of this encounter Procedures Procedure Name Priority Date/Time Associated Diagnosis Comme [facility] CYTOPATHOLOGY Routine 11/01/2008 0:00 EST Results for this procedure are i n the results section . documented in this encounter Results CYTOPATHOLOGY (11/01/2008 0:00 EST) Pathology Report: CYTOPATHOLOGY REPORT ? [facility] ? LAB Reports generated via electr onic interface contain original data; ? however they are lacking the format of the original report. ? Caution should be taken when reading/interpreting unformatted reports. ? Name: ? ROGERMARIA ? Accession #: ? [id number] ? : ? 1940 (Age: 67) ??F ?Collect Date: ? 11/01/2008 ? Location: ? [facility] ? Receive Date: ? 11/05/2008 ? Provider: ?SHAKIRA BERR VIC MD ? Copy to: ? Specimen/Source: ? Pap Test, Cervix/Endocervix, ThinPrep Imaging System ? with manual evaluation ? Last Menstrual Period: ? SPECIMEN ADEQUACY ? Satisfactory for Eval uation ? - assessment of transformati on zone component not applicable ( e.g. atrophy, ? vaginal sample, hysterectomy ) ? GENERAL CATEGORIZATION ? Negative for Intraepi thelial Lesion or Malignancy ? Document reviewed and electr onically signed by: ? Zully Irvine, CT( CP) ? Report Date: ??03/11/ 2009 14:27 ? End of Report ? Specimen Performing Organization Address City/State/ZIP Code Phon e Number [facility] [address] [place] [address] [facility] [address] [place] [address] documented in this encounter Visit Diagnoses Not on filedocumented in this encounter Care Teams Big Data Platform Architect Relationship Specialty Start Date End Date Shakira Downs MD PCP - General 01/08/09 [address] [place] [address] documented as of this encounter
--- OUTSIDE RECORDS SUMMARY | 2022-04-03 01:20 | XMS_ITS | Encounter Summary ---
:1940 Author Organization [facility] [place] [address] Care Team Providers Name Role Phone Shakira Downs MD Primary Care Provider Reason for Visit Reason Comments Left Knee Pain 2nd opinion Encounter Details Date Type Department Care Team Description 04/09/2015 Office Visit Orth[facility]ed[facility] at [facility] Zeke Gonzalez Left knee pain; [facility] MD Taye Primary localized osteoarthrosis, lower leg, [place] [address] [place] [address] ORTHOPAEDICS [place], [place] [address] Social History Tobacco Use Types Packs/Day Years Used Date Never Smoker Smokeless Tobacco: Never Used Alcohol Use Standard Drinks/Week Comments No 0 (1 standard drink = 0.6 oz pure alcoho l) Sex Assigned at Date Recorded Not on file documented as of this encounter Last Filed Vital Signs Vital Sign Reading Time Taken Comments Blood Pressure 115/64 04/09/2015 2:01 PM EDT Pulse 71 04/09/2015 2:01 PM EDT Temperature - - Respiratory Rate - - Oxygen Saturation - - Inhaled Oxygen Concentration - - Weight 72 kg (158 lb 11.2 oz) 04/09/2015 2:01 PM EDT cl othed Height 154.9 cm (5' 1) 04/09/2015 2:01 PM EDT Body Mass Index 29.99 04/09/2015 2:01 PM EDT documented in this encounter Progress Notes Colten Hopper PA - 04/09/2015 2:48 PM EDT Subjective: Zahida Bond is a 74 y.o. female here for evaluation and treatment of left knee pain. The painbegan a few years ago. The pain's location is medial, anterior. She describes the symptoms as achingand throbbing. Symptoms improve with rest, ice, avoiding painful activities. Symptoms worsen with activity. The knee has not given out or felt unstable. Treatment to date has been ice, NSAID's, cortisone injection, without significant relief. Allergies Allergen Reactions ??? Fentanyl Anaphylaxis Current Outpatient Prescriptions Medication Sig Dispense Refill ??? acetaminophen (TYLENOL) 325 mg Tablet Take 650 mg by mouth every 4 hours as needed for Pain. ??? Glucosamine Sulfate 500 mg Tablet Take by mouth 3 times daily. ??? Calcium Carbonate-Vit D3-Min 600 mg calcium- 400 unit Tablet Take by mouth daily. ??? levothyroxine (SYNTHROID) 88 mcg Tablet Take 88 mcg by mouth daily. ??? VOLTAREN 1 % Gel No current facility-administered medications for this visit. Patient Active Problem List Diagnosis Code ??? Hypothyroidism 244.9 ??? Primary osteoarthritis of left knee 715.16 History reviewed. No pertinent past surgical history. History Social History ??? Marital Status: Spouse Name: N/A Number of Children: N/A ??? Years of Education: N/A Occupational History ??? Not on file. Social History Main Topics ??? Smoking status: Never Smoker ??? Smokeless tobacco: Never Used ??? Alcohol Use: No ??? Drug Use: No ??? Sexual Activity: Not on file Other Topics Concern ??? Not on file Social History Narrative ??? No narrative on file ROS: Denies fevers, chills, night sweats, nausea, or vomiting. Objective: BP 115/64 mmHg Pulse 71 Ht 154.9 cm (5' 1) Wt 71.986 kg (158 lb 11.2 oz) BMI 30.00 kg/m2 General : alert, appears stated age and cooperative Gait: Antalgic. The patient can bear weight on the injured extremity. I have made the following determinations: Knee Exam: left Prior surgery on this joint: No Gait Abnormality: Antalgic Knee ROM: Extension:0 Flexion: 120 Alignment: 0-4 degrees Varus Stability: A/P Translation <5mm Varus (lateral stability) <5mm Valgus (medial stability) <5mm Extension La degrees or less Radiographic evidence of joint damage: [0= normal; 1=minimal ; 2= some osteophytes , some narrowing ; 3= moderate osteophytes, significant narrowing, mild deformity; 4= large osteophytes, marked narrowing, obvious deformity]: 3= moderate osteophytes, significant narrorwing, mild deformity Patella Tracking: Normal Skin Integrity: Normal Pulses Palpable: left PT:Yes left DP:Yes Motor/Sensory: Distal Motor:Normal Distal Sensory: Normal Quadriceps Strength:5 Knee Effusion: 0-1+ Ecchymosis: none Patella: Patellar apprehension test: negative Patellar compression test: positive Tenderness: medial joint line Imaging X-rays: 4 views of the knee demonstrate degenerative changes . Assessment: DJD left knee. Plan: Questions solicited and answered. Patient voiced understanding to info/instructions given. Treatment options discussed including Surgical options discussed knee left total knee., Cortisone injection discussed, Activity modification discussed and recommended. Radiology studies and anatomy of joint knee reviewed. Patient decided to proceed with total knee replacement Patient was seen and evaluated with PEDRO LUIS Holloway documented in this encounter Plan of Treatment Not on filedocumented as of this encounter Procedures Procedure Name Priority Date/Time Associated Diagnosis Comme [facility] TOTAL KNEE ARTHROPLASTY Routine 04/09/2015 2:47 PM Left knee pain EDT Primary localized osteoarthrosis, lower leg, left documented in this encounter Results (ABNORMAL) Urinalysis with microscopic (06/18/2015 11:36 AM EDT) [facility] Method Time Signature Glucose UA Negative Negative [...] UA Clear Clear CERNER MILLENNIU M Spec Stanley UA 1.009 1.002 - 1.030 CERNER MIL [...] Organization Address City/State/[place] [address] CERNER MILLENNIUM Basic Metabolic Panel (non-fasting) (06/18/2015 11:24 AM EDT) athologist Signature Glucose Lvl 79 65 - 199 CERNER mg/dL MILLENNIUM Comment: Diabetes: >=200 mg/dL plus symp toms BUN 15 8 - 18 mg/dL CERNER MILLENNIUM Creatinine 0.87 0.70 - 1.20 mg/dL CERNER MILL ENNIUM Comment: Please note that the pediatric reference intervals supplied above were not validated at [facility]. Results from pediatri c patients should be [...] IUM CO2 26 22 - 31 mmol/L INDRA MABRYI UM Anion Gap 12 5 - 15 mmol/L INDRA MABRYIU M Calcium 9.2 8.5 - 10.5 mg/dL INDRA HURST NIUM Estimated GFR >60 >=60 INDRA MABRYIU M Comment: This estimated GFR (eGFR) value [...] the following links into your internet browser. [email or web address] [email or web address] Specimen Anatomical Collection Method Collection Time Receive d Time (Source) Location / / Volume Laterality Blood specimen 06/18/2015 11:24 5 (specimen) AM EDT 11:52 AM EDT Resulting Agency Comment Spec In Lab Zeke Gonzalez MD CHEMISTRY ORDERABLES Performing Organization Address City/State/[place] [address] INDRA FELICIANO EKG 12 Lead (06/14/2015 1:23 PM EDT) [facility] gist Method Time Signature Ventricular rate 64 BPM MUSE SYSTEM Atrial Rate 64 BPM MUSE SYSTEM P-R Interval 204 ms MUSE SYSTEM QRS Duration 86 ms MUSE SYSTEM Q-T Interval 418 ms MUSE SYSTEM QTC Calculated 431 ms MUSE SYSTEM (Bezet) Calculated P Watson 41 degrees MUSE SYSTEM Calculated R Watson -13 degrees MUSE SYSTEM Calculated T Watson 35 degrees MUSE SYSTEM INTERPRETATION Normal sinus rhythm MUSE SYSTEM Normal ECG No previous ECGs available Confirmed by MD Evans Douglas ([id number]) on 06/15/2015 10:08:16 AM Specimen Anatomical [...] left documented in this encounter Care Teams Development Coordinator Relationship Specialty Start Date End Date Shakira Downs MD PCP - General 02/15/15 [address] [place] [address] documented as of this encounter
--- OUTSIDE RECORDS SUMMARY | 2022-04-03 01:20 | XMS_ITS | Encounter Summary ---
:1940 Author Organization [facility] Address [address] [place] [address] Care Team Providers Name Role Phone Shakira Downs MD Primary Care Provider Encounter Details Date Type Department Care Team Description 01/17/2013 Results Only [facility] Asha Downs MD Laboratory Services - [address] [address] [address] [facility] [place] [address] [phone] Social History Tobacco Use Types Packs/Day Years Used Date Never Assessed Sex Assigned at Date Recorded Not on file documented as of this encounter Plan of Treatment Not on filedocumented as of this encounter Procedures Procedure Name Priority Date/Time Associated Diagnosis Comme nts PAP TEST- RESULT Routine 01/17/2013 0:00 EDT Resu lts for this ONLY procedure are i n the results section. documented in this encounter Results PAP TEST- RESULT ONLY (01/17/2013 0:00 EDT) Pathology Report: CYTOPATHOLOGY REPORT [facility] Reports generated via electronic interface contain beryl ginal data; however they are lacking the format of the original re port. Caution should be taken when reading/interpreting unfo rmatted reports. Name: ? MARIA DURAN ? Accession #: ? [id number] : ? 1940 (Age: 72) ??F ?Collect Date: ? 12/29 Location: ? [facility] ? Receive Date : ? 01/18/2013 Provider: ?SHAKIRA DOWNS MD Copy to: ? Specimen/Source: ? Pap Test, Cervix/Endocervix, ThinPrep Imaging System with manual evaluation Last Menstrual Period: ? Other: ? Additional clinical information: no abn paps ? SPECIMEN ADEQUACY ? Satisfactory for Evaluation - transformation zone component present GENERAL CATEGORIZATION ? Negative for Intraepithelial Lesion or Malignan cy ? Document reviewed and electronically signed by: ? SUMANTH Diaz(ASCP) ? Report Date: ??01/20/2013 08:39 End of Report Specimen Performing Organization Address City/State/ZIP Code Phon e Number [facility] [address] [place] [address] SERVICES [facility] [address] [place] [address] documented in this encounter Visit Diagnoses Not on filedocumented in this encounter Care Teams Housekeeping Room Inspector Relationship Specialty Start Date End Date Shakira Downs MD PCP - General 01/08/09 [address] [place] [address] documented as of this encounter
--- OUTSIDE RECORDS SUMMARY | 2022-04-03 01:20 | XMS_ITS | Encounter Summary ---
:1940 Author Organization [facility] [place] [address] Care Team Providers Name Role Phone Shakira Downs MD Primary Care Provider Encounter Details Date Type Department Care Team Description 06/27/2015 Telephone Orthopaedics at [facility] Lor Mcclendon, [place] [address] Social History Tobacco Use Types Packs/Day Years Used Date Never Smoker Smokeless Tobacco: Never Used Alcohol Use Standard Drinks/Week Comments No 0 (1 standard drink = 0.6 oz pure alcoho l) Sex Assigned at Date Recorded Not on file documented as of this encounter Miscellaneous Notes Telephone Encounter - Lor Mcclendon, RN - 06/27/2015 10:02 AM EDT Date of surgery 06/24/15 Type of surgery left total knee replacement Surgeon: Florin Gonzalez Call made within 2 weeks of discharge? Yes Unable to leave message. Phone goes strait to voicemail that hasn't been set up. documented in this encounter Plan of Treatment Not on filedocumented as of this encounter Visit Diagnoses Not on filedocumented in this encounter Care Teams Mucker Cofferdam Relationship Specialty Start Date End Date Shakira Downs MD PCP - General 02/15/15 [address] [place] [address] documented as of this encounter
--- OUTSIDE RECORDS SUMMARY | 2022-04-03 01:20 | XMS_ITS | Encounter Summary ---
:1940 Author Organization [facility] [place] [address] Care Team Providers Name Role Phone Shakira Downs MD Primary Care Provider Reason for Referral Physical Therapy (Routine) - Closed Specialty Diagnoses / Procedures Referred By Contact Refer red To Contact Physical Therapy Diagnoses Status post total left knee replacement Colten Hopper PA [facility] D [place] [address] Referral ID Status Reason Start Date Expiration Date Visits V isits Requested Authorized [id number] Closed Evaluate and 07/30/2015 01/26/2016 12 12 Treat Reason for Visit Reason Comments Aftercare Of Tjr LT TKA 06/24/15 Encounter Details Date Type Department Care Team Description 07/30/2015 Office Visit [place] [facility] [place] Gonzalez Status post total [facility] [place] [address] CENTER [phone] ORTHOPAEDICS [place], [place] [address] Social History Tobacco Use Types Packs/Day Years Used Date Never Smoker Smokeless Tobacco: Never Used Alcohol Use Standard Drinks/Week Comments No 0 (1 standard drink = 0.6 oz pure alcoho l) Sex Assigned at Date Recorded Not on file documented as of this encounter Last Filed Vital Signs Vital Sign Reading Time Taken Comments Blood Pressure 126/70 07/30/2015 1:18 PM EST Pulse 62 07/30/2015 1:18 PM EST Temperature - - Respiratory Rate - - Oxygen Saturation - - Inhaled Oxygen Concentration - - Weight 72.1 kg (159 lb) 07/30/2015 1:[address] essanderson Height 152.4 cm (5') 07/30/2015 1:18 PM EST verbal Body Mass Index 31.05 07/30/2015 1:18 PM EST documented in this encounter Progress Notes Colten Hopper PA - 07/30/2015 1:32 PM EST Patient Name: Zahida Bond : 74 y.o. Case Date: 06-24-15 Surgeon: Florin Gonzalez Procedure: left total knee replacement HPI: Zahida Bond is a very pleasant 74 y.o. female who presents for a 4 weeks follow-up of theabove procedure. The patient has been doing very [...] Knee Exam: Left Knee ROM: Extension:0 Flexion: 120 Alignment: 0-4 [...] no evidence of fracture or loosening. ASSESSMENT/PLAN: 4 weeks post-op and doing well. Continue weightbearing as tolerated and working on range of motion, and we will see her back in 11 months for repeat examination. X-rays will be needed at that time. Patient may return to normal activities as her pain and function allow. Signed: PEDRO LUIS INMAN documented in this encounter Plan of Treatment Scheduled Referrals Name Type Priority Associated Diagnoses Order S chedule Referral to Outpatient Referral Routine Status post total Ord ered: Physical Therapy left knee replacement documented as of this encounter Visit Diagnoses Diagnosis Status post total left knee replacement documented in this encounter Care Teams Radiator Cleaner Relationship Specialty Start Date End Date Shakira Downs MD PCP - General 02/15/15 [address] [place] [address] documented as of this encounter
--- OUTSIDE RECORDS SUMMARY | 2022-04-03 01:20 | XMS_ITS | Encounter Summary ---
:1940 Author Organization [facility] Address [address] [place] [address] Care Team Providers Name Role Phone Unavailable Primary Care Provider Unavailable Encounter Details Date Type Department Care Team Description 01/04/2009 Orders Only [facility] Jeremy Marie MD [facility] [address] [place] [address] [place], [place] [id number] [phone] Social History Tobacco Use Types Packs/Day Years Used Date Never Assessed Sex Assigned at Date Recorded Not on file documented as of this encounter Plan of Treatment Not on filedocumented as of this encounter Procedures Procedure Name Priority Date/Time Associated Diagnosis Comme nts SURGICAL PATHOLOGY Routine 01/04/2009 0:00 EDT Re sults for this procedure are i n the results section. documented in this encounter Results SURGICAL PATHOLOGY (01/04/2009 0:00 EDT) Pathology Report: SURGICAL PATHOLOGY REPORT ? [facility] Reports generated via Abazab interface contain original data; ? LAB however they are lacking the format of the original report. ? Caution should be taken when reading/interpreting unformatted reports. ? Name: ? ZAHIDA DURAN ? Accession #: ? [id number] ? : ? 1940 (Age: 68) ??F ? Collec t Date: ? 01/04/2009 ? Location: ? [facility] ? R eceive Date: ? 01/05/2009 ? Provider: JEREMY WALKO MD ? Copy to: ELVIA BERRIAN MD ? Final Pathologic Diagnosis: ? Rectum, polyp, biopsy : ? - Hyperplastic polyp. ? Document reviewed and electr onically signed by: ? Daniel Wyman, MBChB ? Report ??Date: 01/08/2009 11 :22 ? By the signature above, the attending physician certifies that he/she has ? personally conducted a gross and/or microscopic examination of the described ? specimens and rendered or co nfirmed the above diagnosis. ? Specimen(s) Received: ? Rectal polyp ? Clinical History: ? Colon Ca screen ? Gross Description: ? Received in Jessica' s fixative labelled Varun, Zahida and rectal ? polyp is a jacobson-pink polypoi d soft tissue measuring 0.3 x 0.2 x 0.2 cm. ??The ? resection margin is inked bl ack. ??The specimen is submitted entirely in one ? cassette. ??(A. Armijo)/mms ? End of Report ? Specimen Performing Organization Address City/State/ZIP Code Phon e Number [facility] [address] [place] [address] SERVICES [facility] [address] [place] [address] documented in this encounter Visit Diagnoses Not on filedocumented in this encounter
--- OUTSIDE RECORDS SUMMARY | 2022-04-03 01:20 | XMS_ITS | Encounter Summary ---
:1940 Author Organization [facility] [address] Care Team Providers Name Role Phone Shakira Downs MD Primary Care Provider Reason for Visit Reason Comments Left Knee Pain S/P Lt TKA DOS 06/24/15 Encounter Details Date Type Department Care Team Description 03/17/2016 Office Visit [place] [place] [facility] [place]ke Gonzalez Status post total [facility] MD [place] [address] [place] [address] ORTHOPAEDICS [place], [place] [address] Social History Tobacco Use Types Packs/Day Years Used Date Never Smoker Smokeless Tobacco: Never Used Alcohol Use Standard Drinks/Week Comments No 0 (1 standard drink = 0.6 oz pure alcoho l) Sex Assigned at Date Recorded Not on file documented as of this encounter Last Filed Vital Signs Vital Sign Reading Time Taken Comments Blood Pressure 116/64 03/17/2016 2:13 PM EDT Pulse 57 03/17/2016 2:13 PM EDT Temperature - - Respiratory Rate - - Oxygen Saturation - - Inhaled Oxygen Concentration - - Weight 73.7 kg (162 lb 6.4 03/17/2016 2:13 PM fully geeta thed oz) EDT Height 153.8 cm (5' 0.55) 03/17/2016 2:13 PM with shoe s EDT Body Mass Index 31.14 03/17/2016 2:13 PM EDT documented in this encounter Progress Notes Zeke Gonzalez MD - 03/17/2016 2:00 PM EDT Case Date: 06/24/2015 ?? Surgeon: Surgeon(s) and Role: * Zeke Gonzalez MD - Primary * Staci Kang MD - Resident-Surgeon Levar ?? Preoperative diagnosis: Left knee OA ?? Postoperative diagnosis: Left knee OA ?? Procedure(s): @TOTAL KNEE ARTHROPLASTY MODIFIER, ATTUNE CURVED FIXED PLATFORM, DEPUY ?? Anesthesia: Anesthesia type not filed in the log. ?? Estimated Blood Loss: 50 mL Mrs. Adam returns for follow-up of her left knee replacement. She states that overall she is doingquite well. She does have occasional episodes of clicking,. This is mostly present when she rolls over in bed or when climbing stairs. She does not take any medication for her knee. PHYSICAL EXAMINATION: I have made the following determinations: Post Op Left Knee Exam: Knee ROM: Extension:0 Flexion: 120 Alignment: 0-4 degrees Neutral Stability: A/P Translation <5mm Varus (lateral stability) <5mm Valgus (medial stability) <5mm Extension La degrees or less Patella Tracking: Normal Pulses Palpable: Left PT:Yes Left DP:Yes Motor/Sensory: Distal Motor: Normal Distal Sensory: Normal Quadriceps Strength:5 X-rays: AP/LATERAL: Stable appearing cemented left knee arthroplasty with no evidence of loosening or other detrimental change IMPRESSION: Stable PLAN: We reviewed the findings of her history, clinical examination, and radiographs. She may continue activities as tolerated. We reviewed continued quadriceps program. She'll follow-up in 4 years with x-rays. Or when necessary. ?? documented in this encounter Plan of Treatment Not on filedocumented as of this encounter Visit Diagnoses Diagnosis Status post total left knee replacement documented in this encounter Care Teams Hydrogenation Still Operator Relationship Specialty Start Date End Date Shakira Downs MD PCP - General 02/15/15 [address] [place] [address] documented as of this encounter
--- OUTSIDE RECORDS SUMMARY | 2022-04-03 01:20 | XMS_ITS | Encounter Summary ---
:1940 Author Organization [facility] [place] [address] Care Team Providers Name Role Phone Shakira Downs MD Primary Care Provider Encounter Details Date Type Department Care Team Description 03/17/2016 Orders Only Orthopaedics at [facility] Zeke Gonzalez, Presence of left [facility] [place] [address] ORTHOPAEDICS [place] [id number] Social History Tobacco Use Types Packs/Day Years Used Date Never Smoker Smokeless Tobacco: Never Used Alcohol Use Standard Drinks/Week Comments No 0 (1 standard drink = 0.6 oz pure alcoho l) Sex Assigned at Date Recorded Not on file documented as of this encounter Plan of Treatment Not on filedocumented as of this encounter Visit Diagnoses Diagnosis Presence of left artificial knee joint Knee joint replacement by other means documented in this encounter Care Teams Tutoring Clinician Relationship Specialty Start Date End Date Shakira Downs MD PCP - General 02/15/15 [address] [place], [place] [address] documented as of this encounter
--- OUTSIDE RECORDS SUMMARY | 2022-04-03 01:20 | XMS_ITS | Encounter Summary ---
:1940 Author Organization [facility] [place] [address] Care Team Providers Name Role Phone Shakira Downs MD Primary Care Provider Encounter Details Date Type Department Care Team Description 06/16/2016 Hospital En[place] [facility] [place] Presence of left [address] [place] [address] Dr Taye MD artificial knee [facility] MEDICAL joint [id number] [place] [phone] ORTHOPAEDICS [place] [id number] Social History Tobacco Use Types Packs/Day Years [...] nts XR KNEE AP & LAT Routine 06/16/2016 10:53 AM Presence of left Results for this LEFT EDT artificial knee procedure ar e in joint the results section. documented in this encounter Results XR Knee 1-2 Views Left (Generic) (06/16/2016 10:53 AM EDT) Anatomical Region Laterality Modality Knee Left Digital Radiography Specimen (Source) Anatomical Location Collection Method / Collectio n Time Received Time / Laterality Volume Impressions 06/16/2016 11:21 AM EDT No interval change in the post arthroplasty appearance compared to 03/17/2016. Narrative 06/16/2016 11:21 AM EDT EXAMINATION: XR KNEE 1-2 VIEWS LEFT (GENERIC) CLINICAL HISTORY: L TKA ANNUAL CHECK TECHNIQUE: AP and lateral views of the l eft knee. COMPARISON: 03/17/2016. FINDINGS: Left knee arthroplasty compone nts in unchanged position, with no new or increased periprosthetic lucency seen . No periprosthetic fractures identified. No other interval osseous fi nding is noted. No appreciable joint effusion. Serpiginous subcutaneous opaci ties, predominantly in the medial aspect of the imaged portion of the leg, compat ible with venous varicosities. Procedure Note Ashley Martinez MD - 06/16/2016Formatt ing of this note might be different from the original. EXAMINATION: XR KNEE 1-2 VIEWS LEFT (GEN RYAN) CLINICAL HISTORY: L TKA ANNUAL CHECK TECHNIQUE: AP and lateral views of the l eft knee. COMPARISON: 03/17/2016. FINDINGS: Left knee arthroplasty compone nts in unchanged position, with no new or increased periprosthetic lucency seen . No periprosthetic fractures identified. No other interval osseous fi nding is noted. No appreciable joint effusion. Serpiginous subcutaneous opaci ties, predominantly in the medial aspect of the imaged portion of the leg, compat ible with venous varicosities. IMPRESSION No interval change in the post arthropla sty appearance compared to 03/17/2016. Zeke Gonzalez MD IMG DX ORDERABLES documented in this encounter Visit Diagnoses Diagnosis Presence of left artificial knee joint Knee joint replacement by other means documented in this encounter Care Teams Supervisor Carding Relationship Specialty Start Date End Date Shakira Downs MD PCP - General 02/15/15 [address] [place] [address] documented as of this encounter
--- OUTSIDE RECORDS SUMMARY | 2022-04-03 01:20 | XMS_ITS | Encounter Summary ---
:1940 Author Organization [facility] [place] [address] Care Team Providers Name Role Phone Shakira Downs MD Primary Care Provider Encounter Details Date Type Department Care Team Description 02/18/2015 Orders Only Orthopaedics at [facility] Zeke Gonzalez MD Left knee pain [facility] [place] [address] ORTHOPAEDICS [phone] [place] [id number] (Wo rk) Social History Tobacco Use Types Packs/Day Years Used Date Never Assessed Sex Assigned at Date Recorded Not on file documented as of this encounter Plan of Treatment Not on filedocumented as of this encounter Results XR Standing Alingment and [...] knee pain Pain in joint, lower leg Left knee pain Pain in joint, lower leg documented in this encounter Care Teams Fresh Foods Cake Decorator Relationship Specialty Start Date End Date Shakira Downs MD PCP - General 02/15/15 [address] [place] [address] documented as of this encounter
--- OUTSIDE RECORDS SUMMARY | 2022-04-03 01:20 | XMS_ITS | Clinical Summary ---
:1940 Author Organization [facility] [place] [address] Care Team Providers Name Role Phone Shakira Downs MD Primary Care Provider Allergies Active Allergy Reactions Severity Noted Date Comments Fentanyl Other (See Comments) High 04/09/2015 Pt rela bhaskar that rxn was stopped breath ing' with Fentanyl during colonoscopy 2008. Medications Medication Sig Dispensed Refills Start Date End Date Status levothyroxine Take 88 mcg by 0 01/26/2015 Active (SYNTHROID) 88 mcg mouth daily. Tablet Calcium Carbonate-Vit Take by mouth 0 Active D3-Min 600 mg calcium- daily. 400 unit Tablet naproxen sodium Take 220 mg by 0 Active (ANAPROX) 220 mg Tablet mouth daily. Active Problems Problem Noted Date S/P left total knee arthroplasty 06/24/15 Jevsevar Hypothyroidism 04/09/2015 Primary osteoarthritis of left knee 04/09/2015 Immunizations Name Administration Dates Next Due Influenza PF, Split (High Dose) 06/16/2016 Influenza Vaccine, Unspecified 05/29/2015 Formulation Influenza Vaccine, Whole 07/17/2008, 07/20/2007, 07/17/2006 Family History Medical History Relation Comments Cancer Maternal Aunt Relation Status Comments Father Maternal Aunt Mother Alive Social History Tobacco Use Types Packs/Day Years Used Date Never Smoker Smokeless Tobacco: Never Used Alcohol Use Standard Drinks/Week Comments No 0 (1 standard drink = 0.6 oz pure alcoho l) Sex Assigned at Date Recorded Not on file Last Filed Vital Signs Vital Sign Reading Time Taken Comments Blood Pressure 118/69 06/16/2016 11:21 AM EDT Pulse 68 06/16/2016 11:21 AM EDT Temperature 36.5 ??C (97.7 ??F) 06/25/2015 12:29 PM EDT Respiratory Rate 16 06/25/2015 12:29 PM EDT Oxygen Saturation 98% 06/25/2015 12:29 PM EDT Inhaled Oxygen Concentration - - Weight 74.7 kg (164 lb 9.6 oz) 06/16/2016 11:21 AM EDT Height 153.7 cm (5' 0.5) 06/16/2016 11:21 AM EDT Body Mass Index 31.62 06/16/2016 11:21 AM EDT Plan of Treatment Health Maintenance Due Date Last Done Comments Covid-19 Vaccine (#1) 12/05/1945 Hepatitis C Screening 1960 Tdap adult 1961 Tetanus vaccine 1961 Zoster vaccine (1 of 2) 1992 Bone Density Scan 12/05/2007 Pneumoccocal Vaccine: 65+ (1 - 12/05/2007 PCV) Influenza (Flu) vaccine (1 of - 04/30/2022 06/16/2016, , Influenza standard series) 07/17/2008, Additiona l history exists Medical Devices Implanted Type Area Intervention Specialist Device Shelf Model / Identifier Expiration Serial / Date Lot Catrachita Kay Mdl,Garland,35mm ([id number]) ([employer]oreq) - [id number] IMPL ANTS Left: DO NOT USE Depuy 12/28/2019 [id number] / Implanted: Qty: 1 on 06/24/2015 by Zeke Gonzalez MD at [facility] Knee Dial Printer - / [id number] Insurance Payer Benefit Plan / Subscriber ID Effective Dates Phone Addre ss Type Group MEDICARE MEDICARE PART [id number] 2007-Safia [phone] [place] [id number] [employer] [id number] 2008-Alida [address] [address] [place] [address] Advance Directives Documents on File Type Date Recorded Patient Facility Maintenance Manager Explanati on Advance Directives and Living 06/18/2015 1:30 PM Will Care Teams Senior Business Analyst Relationship Specialty Start Date End Date Shakira Downs MD PCP - General 02/15/15 [address] [place], [place] [id number]
--- OUTSIDE RECORDS SUMMARY | 2022-04-03 01:20 | XMS_ITS | Encounter Summary ---
:1940 Author Organization [facility] [place] [address] Care Team Providers Name Role Phone Shakira Downs MD Primary Care Provider Encounter Details Date Type Department Care Team Description 07/01/2015 Telephone [place] [facility] [place] Mcclendon, [place] [address] Social History Tobacco Use Types Packs/Day Years Used Date Never Smoker Smokeless Tobacco: Never Used Alcohol Use Standard Drinks/Week Comments No 0 (1 standard drink = 0.6 oz pure alcoho l) Sex Assigned at Date Recorded Not on file documented as of this encounter Miscellaneous Notes Telephone Encounter - Lor Mcclendon RN - 07/01/2015 1:13 PM EST TC from pt stating the compression stockings are having a hard time staying in place. The stockings are rolling down and causing bruising on the back of her knee. She would like to try and only wear them at night time and have them removed during the day. I agreed that this would be a good plan for 2-3 days and if her lower limb swelling is not relieved by the decreased wearing of the stockings I instructed her to use a james bandage in place of the stockings. The james bandage should be loose enough tohave two finger width between her skin and the bandage. She understood this plan and agreed to try it. She will contact orthopaedics again if needed. documented in this encounter Plan of Treatment Not on filedocumented as of this encounter Visit Diagnoses Not on filedocumented in this encounter Care Teams Clinical Resource Nurse Relationship Specialty Start Date End Date Shakira Downs MD PCP - General 02/15/15 [address] [place] [address] documented as of this encounter
--- NOTE | 2022-04-03 14:09 | DI.RAD_ITS ---
Exam(s) XR CERVICAL SPINE COMP 4-5V EXAM: XR CERVICAL SPINE COMP 4-5V CLINICAL HISTORY: LT NUMBNESS AND TINGLING ARM, R20.2. TECHNIQUE: 2D digital imaging was performed. Seven images were obtained. AP, odontoid, lateral and b ilateral oblique images were obtained. COMPARISON: No exams were available for comparison FINDINGS: The odontoid is intact. The lateral masses are well aligned. There is normal alignment of the cervi jacob spine. There are endplate osteophytes and disc space narrowing from C4-5 through C6-C7. Multilev el degenerative changes of the facets are seen present. No acute fracture or subluxation is present. There is mild narrowing of the neural foramen on the right at C4-5 and moderate at C5-C6. On the le ft, there is moderate narrowing of the neural foramen at C5-6 and C6-C7. The cervical thoracic juncti on is well maintained. The prevertebral soft tissues are unremarkable. Lung apices are clear. IMPRESSION: Moderate degenerative changes in the cervical spine. DATA REPOSITORY: RADIATION DOSE DELIVERED:
== END ==
PROVIDERS: PCP Family Medicine; Visit Provider Physician Assistant Medical
DX: M43.02 Spondylolysis, cervical region (principal)
CPT/HCPCS: 72050

== ENCOUNTER → 2022-05-06 03:40 | Outpatient (CLI) | payer MEDICARE, OTHER, SELFPAY ==
--- NOTE | 2022-05-06 | DI.MRI_ITS ---
Exam(s) MR CERVICAL SPINE WO EXAM: MR CERVICAL SPINE WO CLINICAL HISTORY: LEFT ARM NUMBNESS AND TINGLING R20.2 TECHNIQUE: Multiplanar multisequence MRI of the cervical spine was performed without intravenous con trast. COMPARISON: CR XR CERVICAL SPINE COMP 4-5V from 04/03/2022 FINDINGS: BONES: Vertebral body heights are maintained. Intervertebral disc spaces are normal. Alignment is nor mal. There does appear to be mild endplate degenerative signal change present. CERVICAL CORD: Craniovertebral junction is unremarkable. The cervical cord is normal size and signal intensity. SOFT TISSUES: Unremarkable. C2-3: No disc herniation or bulge is identified. No significant central spinal canal or neural forami nal stenosis. C3-4: No disc herniation or bulge is identified. No significant central spinal canal or neural forami nal stenosis C4-5: There is mild prominence of the osteophyte disc complex. No significant central spinal canal s tenosis is seen. There does appear to be mild narrowing of the neural foramen bilaterally. C5-6: There is prominence of the osteophyte disc complex. No significant central spinal canal stenos is is seen. There is mild left neural foraminal narrowing. No significant right neural foraminal st enosis is seen. C6-7: There is mild prominence of the osteophyte disc complex. No significant central spinal canal s tenosis is present. No significant neural foraminal stenosis is seen. C7-T1: No disc herniation or bulge is identified. No significant central spinal canal or neural angy inal stenosis IMPRESSION: Multilevel degenerative changes in the cervical spine. The findings do result in mild narrowing of t he neural foramen as described above. No significant central spinal canal stenosis is seen. DATA REPOSITORY:
== END ==
PROVIDERS: PCP Family Medicine; Visit Provider Physician Assistant Medical
DX: M47.812 Spondylosis without myelopathy or radiculopathy, cervical region (principal)
CPT/HCPCS: 72141

== ENCOUNTER 2022-06-18 11:13 | Outpatient (REF) | payer MEDICARE, OTHER, SELFPAY ==
[2022-06-18 16:24] LABS: Calculated LDL 89 mg/dL (<100); Cholesterol 180 mg/dL (<200); Glucose 87 mg/dL (74-106); HDL Cholesterol 66 mg/dL (40-60); TSH 0.32 uIU/mL (0.36-3.74); Triglyceride 125 mg/dL (<150)
[2022-06-18 16:46] LABS: FREE T4 1.68 ng/dL (0.76-1.46)
== END 2022-06-18 11:14 | disposition home or self-care (01) ==
LOC: NCHCN 11:13
PROVIDERS: PCP Family Medicine; Visit Provider Family Medicine
DX: Z00.00 Encounter for general adult medical examination without abnormal findings (principal); E03.9 Hypothyroidism, unspecified
CPT/HCPCS: 80061; 82947; 84439; 84443

== ENCOUNTER → 2022-07-01 10:02 | Outpatient (BNVA) | payer MEDICARE, OTHER, SELFPAY | PROVIDERS: PCP Family Medicine; Referring Provider Family Medicine; Visit Provider Nurse Practitioner Adult Health | DX: G56.03 Carpal tunnel syndrome, bilateral upper limbs (principal) | CPT/HCPCS: 95909; 99203; 99213 ==

== ENCOUNTER 2022-08-27 13:19 | Outpatient (CLI) | payer MEDICARE, OTHER, SELFPAY ==
[2022-08-27 14:00] LABS: FREE T4 1.22 ng/dL (0.76-1.46); TSH 1.95 uIU/mL (0.36-3.74)
== END 2022-08-27 13:20 | disposition home or self-care (01) ==
LOC: LBO 13:21
PROVIDERS: PCP Family Medicine; Visit Provider Family Medicine
DX: R20.2 Paresthesia of skin (principal); E03.9 Hypothyroidism, unspecified
CPT/HCPCS: 36415; 84439; 84443

== ENCOUNTER 2023-01-03 11:33 | Emergency (ER) | payer MEDICARE, OTHER, SELFPAY ==
[2023-01-03 11:39] VITALS: BP 145/68; PULSE 63; RESP 20; TEMP 36.4; O2SAT 98
--- NOTE | 2023-01-03 11:45 | DI.RAD_ITS ---
Exam(s) XR KNEE RT 3V AP,LAT,SUKI EXAM: XR KNEE RT 3V AP,LAT,SUKI CLINICAL HISTORY: pain, twisted knee this morning. TECHNIQUE: 2D digital imaging was performed. COMPARISON: No exams were available for comparison FINDINGS: 3 views No evidence of acute fracture or obvious joint effusion. Minimal if any significant degenerative melly nges. Bone density normal. No osseous lesions. IMPRESSION: No acute osseous findings. DATA REPOSITORY: RADIATION DOSE DELIVERED:
--- NOTE | 2023-01-03 11:54 | W.ED.GENAD ---
Discharge Plan Disposition Patient Disposition: Home Condition: Stable Discharge Details Clinical Impression: Knee pain, right Primary Care Provider: Shakira Downs V ED Provider: Phillip Mendoza Home Meds and New Rx's Prescriptions: Continued levothyroxine 100 mcg capsule 88 mcg PO DAILY calcium carbonate-vitamin D3 [Calcium 600 + D(3)] 600 mg(1,500mg) -400 unit Tablet 1 tab PO BID Discharge Instructions Instructions: Knee Pain (ED) Additional Instructions: Your xrays did not show concerning findings at this time follow up with your orthopedist If you feel more ill, have severe worsening pain or difficulty breathing return to the emergency department Medical Decision Making 82 yo female with hx of hypothyroidism comes in with right knee pain. She was doing barn chores this morning and was carrying a pale when she planted her right leg on the ground and twisted her knee. She denies falls or hitting her head. She has had pain in the anterior knee with walking since so came here. She arrives stable in no distress. She has no visible or palpable deforimty of the leg. She has tenderness over the right patella, does have full rom of the knee, no erythema or warmth. She has intact distal sensation and pulses, full rom of the ankle and hip. Suspect strain vs meniscus injury, will obtain xrays to evaluate for fracture. xray negative, pt stable and still has full rom of the entire leg including the knee. She is stable for d/c, [place] [facility] [place] to arrange follow up. Return precautions given Differential Diagnosis Differential Diagnosis: strain, fracture, meniscus injury Imaging Data Radiologic Study: Attestation: I personally reviewed and interpreted this imaging study as follows: Imaging: X-Ray Radiologist's impression: IMPRESSION: 1. No acute findings. 2. Mild medial knee joint space narrowing HPI General Date/Time Provider Initiated Documentation: 01/03/23 11:48. Limitations to Documentation: no limitations. Information obtained by: patient. History of Present Illness 82 year old F presents to the emergency department with the chief complaint of right knee pain, described as moderate, Quality is described as aching, and is localized to the right and lower extremity. Patient reports no radiation. Patient started experiencing this hour(s) (5) and it has been constant. Rest improves symptom(s), Patient notes no other symptoms.. Patient did receive the following treatments prior to arrival, NSAID Related Data Home Medications Medication Instructions Recorded Confirmed calcium carbonate 600 mg-vitamin 1 tab PO BID 06/04/21 01/03/23 D3 10 mcg (400 unit) tablet (Calcium 600 + D(3)) levothyroxine 100 mcg capsule 88 mcg PO DAILY 07/01/22 01/03/23 Allergies Allergy/AdvReac Type Severity Reaction Status Date / Time fentanyl Allergy Severe Anaphylaxis Unverified 01/03/23 11:42 alendronate sodium AdvReac Intermediate pain Unverified 01/03/23 11:42 [From Fosamax] General Stated Complaint: Orthopedic VIVIANA: 3 Review of Systems All systems reviewed & are unremarkable except as noted in HPI and below Constitutional Constitutional: Denies chills, Denies fever(s) and Denies weakness Cardiovascular Cardiovascular: Denies chest pain and Denies dyspnea Respiratory Respiratory: Denies cough and Denies dyspnea Gastrointestinal Gastrointestinal: Denies abdominal pain, Denies nausea and Denies vomiting Musculoskeletal Musculoskeletal: Denies joint swelling Neurologic Neurologic: Denies weakness PFSH All Active Problems (Updated 01/03/23 @ 13:06 by Phillip Mendoza MD) Knee pain, right (Acute) Bilateral carpal tunnel syndrome (Acute) Medical History Actinic keratoses AV block, 1st degree Per pt. states f/u with PCP Back pain Fatigue Hypothyroidism Numbness and tingling in left arm Osteoarthritis Osteopenia Paresthesia of both hands Symptomatic menopausal or female climacteric states Surgical History History of total knee arthroplasty Hx of cataract surgery Hx of section Hx of colonoscopy Family History Mother Dementia Stroke Father Stroke Hypertension Alcohol use disorder Sister Diabetes Stroke S/P TKR (total knee replacement) Overweight Brother Alcohol use disorder Overweight Social History Smoking/Tobacco Use Status: Never Smoking risk assessment performed?: Yes Alcohol Intake: never Substance use type: does not use Do you feel safe at home: Yes Do you feel safe in your relationship?: Yes Additional Social history: lives alone Exam Const General: no acute distress Orientation: alert HENMT Head: normal to inspection Ears: external ears normal General nose exam: external nose normal Mouth: moist mucous membranes Eyes General: appearance normal, both eyes and all related structures Neck Neck: normal visual inspection Resp Effort & Inspection: normal respiratory effort and able to speak in complete sentences Cardio Rate: regular rate Skin General skin exam: no rashes or lesions noted Neuro General: patient alert and patient oriented x3 Extrem General: normal to inspection, full ROM and capillary refill normal Psych Mental Status: mental status grossly normal Course Vital Signs Vital signs: Vital Signs Temperature 36.4 C 01/03/23 11:39 Pulse 63 01/03/23 11:39 Respiratory Rate 20 01/03/23 11:39 Blood Pressure 145/68 H 01/03/23 11:39 Pulse Oximetry 98 01/03/23 11:39 Temperature 36.4 C 01/03/23 11:39 Temperature Source Oral 01/03/23 11:39 Pulse 63 01/03/23 11:39 Respiratory Rate 20 01/03/23 11:39 Respiratory Effort Normal 01/03/23 11:43 Blood Pressure 145/68 H 01/03/23 11:39 Blood Pressure Position Sitting 01/03/23 11:39 Pulse Oximetry 98 01/03/23 11:39 Oxygen Delivery Method Room Air 01/03/23 11:39 Oxygen Flow Rate 0 01/03/23 11:39 Pain Level 9 01/03/23 11:39
--- NOTE | 2023-01-03 13:00 | DI.VRAD_ITS ---
PROCEDURE INFORMATION: Exam: XR Right Knee Exam date and time: 01/03/2023 12:19 PM Age: 82 years old Clinical indication: Other: Pain, twisted knee this am TECHNIQUE: Imaging protocol: Radiologic exam of the right knee. Views: 3 views. COMPARISON: No relevant prior studies available. FINDINGS: Bones/joints: Normal mineralization and alignment. No fracture. Sub threshold medial knee joint space narrowing. Slight patellar spurring. No knee joint effusion. Soft tissues: Normal. IMPRESSION: 1. No acute findings. 2. Mild medial knee joint space narrowing. Dictated and Authenticated by: Tom Self MD. Ordering:ALEX Fisher MD
== END 2023-01-03 13:31 | disposition home or self-care (01) ==
PROVIDERS: Emergency Provider Emergency Medicine; PCP Family Medicine
DX: M25.561 Pain in right knee (principal); E03.9 Hypothyroidism, unspecified; X50.9XXA Other and unspecified overexertion or strenuous movements or postures, initial encounter
CPT/HCPCS: 73562; 99283

== ENCOUNTER 2023-06-24 14:26 | Outpatient (REF) | payer MEDICARE, OTHER, SELFPAY ==
[2023-06-24 19:51] LABS: Glucose 107 mg/dL (74-106)
== END 2023-06-24 14:27 | disposition home or self-care (01) ==
LOC: NCHCN 14:26
PROVIDERS: PCP Family Medicine; Visit Provider Family Medicine
DX: Z00.00 Encounter for general adult medical examination without abnormal findings (principal); E03.9 Hypothyroidism, unspecified
CPT/HCPCS: 82947; 84443

== ENCOUNTER → 2023-09-23 03:19 | Outpatient (CLI) | payer MEDICARE, OTHER, SELFPAY ==
--- NOTE | 2023-09-23 | DI.DEXA_ITS ---
Exam(s) XR DEXA BONE DENSITY W/WO REGLA EXAM: XR DEXA BONE DENSITY W/WO REGLA CLINICAL HISTORY: OSTEOPENIA M85.80 MENOPAUSAL STATE Z78.0 TECHNIQUE: Hologic Horizon C densitometer analysis of left hip, lumbar spine and left forearm. Lat eral survey image of the thoracic and lumbar spine. COMPARISON: DX REGLA from 11/07/2008 DX DEXA BONE DENSITY WITH REGLA from 01/25/2013 DX XR DEXA BONE DENSITY W/WO REGLA from 06/21/2018 CR XR DEXA BONE DENSITY W/WO REGLA from 09/12/2020 FINDINGS: Lateral view of the thoracic and lumbar spine shows accentuation of the thoracic kyphosis with mild a nterior wedging of midthoracic vertebral bodies on, not significantly changed. Bone mineral density measurements of the lumbar spine correspond to a total T-score of -0.6, in the normal range. This is not significantly changed from 2020 but represents a 7.4 percent increase from 2008. Bone mineral density measurements of the left hip correspond to a total T-score of -1.3. This is no t significantly changed from the previous examination. The femoral neck T-score is -2.1, in the ost eopenic range.. Theleft forearm bone mineral density measurements correspond to a T-score of the distal 3rd of -1.6, in the osteopenic range. This is not significantly changed from prior exams. IMPRESSION: Normal bone mineral density of the spine. Osteopenia of the forearm and hip, relatively stable from prior.
--- NOTE | 2023-09-23 12:30 | DI.US_ITS ---
APPROVED REPORT EXAM: Comprehensive 2D, Doppler, and color-flow Echocardiogram Patient Location: Out-Patient Site Monitor: Dhaval Hodge RDCS (AE) Indications: heart murmur Conclusion 1. LA mildly dilated, other chambers normal in size 2. Normal LV function,EF 60-65%. Normal RV function. 3. Mild aortic sclerosis without stenosis;mild MR; mild to moderate TR, no phtn. 4. No pericardial effusion. Wall motion Left Ventricle Left ventricular cavity is small. The left ventricular systolic function is normal. The left ventricu lar ejection fraction is within the normal range. There is normal left ventricular wall thickness. Th ere is normal LV segmental wall motion. There is no ventricular septal defect visualized. LVEF is 63- 68%. Right Ventricle The right ventricle is normal size. The right ventricular systolic function is normal. Atria The left atrium size is normal. The right atrium size is normal. The interatrial septum is intact wit h no evidence for an atrial septal defect. Aortic Valve The Aortic valve is sclerotic. Aortic valve is trileaflet. There is no aortic valvular stenosis. No a ortic regurgitation is present. Mitral Valve Mitral valve leaflets are mildly thickened. No evidence of mitral valve stenosis. Mild mitral regurgi tation. Tricuspid Valve The tricuspid valve is normal in structure. There is no tricuspid valve stenosis. Moderate tricuspid regurgitation. The RVSP is 23.2 mmHg. Pulmonic Valve The pulmonary valve is normal in structure. There is no pulmonic valvular stenosis. Mild pulmonic reg urgitation. Great Vessels The aortic root is normal in size. The ascending aorta is mildly dilated. Aortic arch is not well vis ualized. IVC is normal in size and collapses >50% with inspiration. Pericardium There is no pericardial effusion. 2D Dimensions IVSD d PLAX 0.78 cm F: 0.6-1.0 Ao Root d 3.11 cm F: 2.7 - 3.3 LVPW d PLAX 0.75 cm F: 0.6 - 1.0 Ao Asc Diam d 3.26 cm F: 2.3 - 3.1 LVID d PLAX 3.48 cm F: 3.8 - 5.2 LVDs 2.32 cm F: 2.2 - 3.5 LV EF Teichholz 63.0 % FS 33.24 % LV EDV (Teich) 50.3 mL LV ESV (Teich) 18.6 mL Stroke Vol Index (Teich) 18.95 M-Mode TAPSE 2.15 cm (M/F) >1.7 Auto EF LV EDV A4C 81.9 mL LV EDV A2C 90.1 mL LV EDV BP 86.7 mL LV ESV A4C 26.8 mL LV ESV A2C 27.7 mL LV ESV BP 27.1 mL LVEF(%) A4C 67.3 % LVEF(%) A2C 69.2 % LVEF(%) BP 68.7 % LV SV A4C 55.1 ml LV SV A2C 62.4 ml LV SV BP 59.5 ml LV CO A4C 3.1 L/min LV CO A2C 3.7 L/min LV CO BP 3.4 L/min HR A4C 56.16 BPM HR A2C 60.00 BPM LV EDV Index (BP) LA Volume LA Length A4C 4.9 cm LA Length A2C 4.1 cm LA Area A4C s 13.71 cm2 LA Area A2C s 10.10 cm2 LA Vol A4C A-L 32.72 mL LA Vol A2C A-L 21.19 mL LA Vol Biplane A-L 28.8 mL LA Vol/BSA A4C A-L LA Vol/BSA A2C A-L LA Vol/BSA BP A-L 17.2 mL/m2 LA Vol A4C MOD 31.6 mL LA Vol A2C MOD 20.0 mL LA Vol BP MOD 27.1 mL RA Volume RA Area A4C 10.8 cm2 RA ESV A4C (A-L) 25.6mL RA Vol/BSA A4C A-L RA Length A4C 3.9 cm RA ESV A4C (MOD) 24.2mL LV Diastology MV E' medial 0.072 (>0.07 m/s) MV E Vmax 0.75 (0.4-1.3 m/s) MV E/E' MED 10.41 (<14) MV A Vmax 0.90 (0.4-1.3 m/s) MV E' lateral 0.066 (>0.1 m/s) E/A Ratio 0.8 MV E/E' LAT 11.25 (<14) MV E' Average 0.069 m/s MV E/E'(average) 10.82 Aortic Valve AoV Vmax 1.49 m/s LVOT Vmax 0.80 m/s AoV Peak Grad 8.9 mmHg LVOT Peak Grad 2.6 mmHg AoV Area (Vmax) 1.35 cm2 LVOT VTI 0.186 m AoV VTI 0.326 m LVOT Mean Grad 1.4 mmHg AoV Mean Brett. 1.06 m/s LVOT SV 46.87 mL AoV Mean Grad 5.2 mmHg LVOT Diam s 1.75 cm AoV Area (VTI) 1.44 cm2 Velocity Ratio 0.54 Mitral Valve MV DT 103 (160-240 msec) MV Vmax TIPS 1.04 m/s MV Mean Grad 1.4 (<2mmHg) MV VTI 0.359 m Pulmonary Valve PV Vmax 0.75 (0.5-1.5 m/s) RVOT Vmax 0.41 m/s PV Peak Grad 2.2 mmHg RVOT Peak Gr. 0.7 mmHg PV Mean Brett 0.44 m/s RVOT VTI 0.100 m PV Mean Grad 0.9 mmHg RVOT Mean Gr. 0.3 mmHg Tricuspid Valve RA Pressure 3.00 mmHg TR Vmax 2.25 m/s TR Peak Grad 20.1 mmHg RVSP (TR) 23.2 mmHg
== END ==
PROVIDERS: PCP Family Medicine; Visit Provider Family Medicine
DX: R01.1 Cardiac murmur, unspecified (principal); Z78.0 Asymptomatic menopausal state
CPT/HCPCS: 77080; 93306

== ENCOUNTER 2024-07-20 15:56 | Outpatient (REF) | payer MEDICARE, SELFPAY ==
[2024-07-20 19:44] LABS: Anion Gap 8.6 mmol/L (3-11); BUN 20 mg/dL (7-18); CO2 27.4 mmol/L (21.0-32.0); CREATININE 0.9 mg/dL (0.55-1.02); Calcium 9.2 mg/dL (8.5-10.1); Chloride 108 mmol/L (98-107); Estimated GFR 64.23 (mL/min/1.73m2); Glucose 122 mg/dL (74-106); Potassium 3.8 mmol/L (3.5-5.1); Sodium 144 mmol/L (136-145); TSH (W/Ref FT4) 1.77 uIU/mL (0.36-3.74)
== END 2024-07-20 15:57 | disposition home or self-care (01) ==
LOC: NCHCN 15:56
PROVIDERS: PCP Family Medicine; Visit Provider Family Medicine
DX: E03.9 Hypothyroidism, unspecified (principal)
CPT/HCPCS: 80048; 84443

== ENCOUNTER 2024-07-26 01:30 | Outpatient (CLI) | payer MEDICARE, SELFPAY ==
--- NOTE | 2024-07-26 | DI.MAMMO_ITS ---
Exam(s) MAMMO SCREENING EXAM: MAMMO SCREENING CLINICAL HISTORY: SCREENING MAMMO Z12.31 TECHNIQUE: Bilateral full field digital CC and MLO mammographic images were obtained with 3D tomosyn thesis and utilizing computer aided detection (CAD). COMPARISON: Available for comparison. FINDINGS: Masses/Architectural Distortion: None seen. Microcalcifications: No suspicious pleomorphic-type are seen. Skin Thickening/Nipple Retraction: None. IMPRESSION: 1. No significant interval change with no specific features of malignancy noted. 2. Unless there is more urgent need, screening mammography is recommended, as per [employer] guidelines. BI-RADS Category 1 - Negative Breast Density - Category B - Scattered areas of fibroglandular density Breast density category C or D implies that the patient has dense breast tissue. Dense breast tissue is very common and is not abnormal but dense breast tissue can make it harder to find cancer on a ma mmogram. Also, dense breast tissue may increase their breast cancer risk. This information about the result of the mammogram report was provided to the patient to raise their awareness. Use this report when you speak with the patient about their risks for breast cancer, which includes their family hist ory. At that time, you may recommend for more screening tests (Ultrasound or MRI) as they might be us eful based on their risk. A negative radiographic report should not delay biopsy if a dominant or clinically suspicious mass is present. Up to ten percent of cancers are not identified on mammography. A negative report may reinforce clinical impression. Adenosis and dense breasts may obscure an underlying neoplasm. False positive reports average 6 to 10%. Patient will receive a letter notifying them of these results.
== END 2024-07-26 01:50 ==
LOC: DI 01:30
PROVIDERS: PCP Family Medicine; Visit Provider Family Medicine
DX: Z12.31 Encounter for screening mammogram for malignant neoplasm of breast (principal); R92.323 Mammographic fibroglandular density, bilateral breasts
CPT/HCPCS: 77063; 77067

== ENCOUNTER 2024-11-16 01:20 | Outpatient (CLI) | payer MEDICARE, SELFPAY ==
--- NOTE | 2024-11-16 | DI.RAD_ITS ---
Exam(s) XR HIP RT COMPLETE AP PELVIS EXAM: XR HIP RT COMPLETE AP PELVIS CLINICAL HISTORY: PAIN RT HIP M25.551. TECHNIQUE: 2D digital imaging was performed of the right hip. Two images were obtained. AP pelvis a nd lateral right hip views were obtained. COMPARISON: No exams were available for comparison FINDINGS: BONES: No acute fracture is present. No bony destructive lesion is seen. JOINTS: No dislocation present. In the right hip, there is joint space narrowing. There is chondroca lcinosis around the right hip. Acetabular spurring is present. Similar findings, but to a lesser de gree are seen in the left hip. There is mild sclerosis seen at the symphysis pubis which may represe nt osteitis pubis.. SOFT TISSUE: Normal. 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 DATA REPOSITORY: RADIATION DOSE DELIVERED:
--- NOTE | 2024-11-16 | DI.RAD_ITS ---
Exam(s) XR LUMBAR SPINE COMPLETE EXAM: XR LUMBAR SPINE COMPLETE CLINICAL HISTORY: PAIN RT HIP M25.551. TECHNIQUE: 2D digital imaging was performed of the lumbar spine. Five images were obtained. AP, la teral, right oblique, left oblique and L5-S1 spot views were obtained. COMPARISON: CR XR DEXA BONE DENSITY W/WO REGLA from 09/23/2023 FINDINGS: BONES: No fracture or destructive lesion. Endplate osteophytes are seen at multiple levels of the lum bar spine. There are degenerative changes of the facets at L4-5 and L5-S1. The bones are osteopenic. DISKS: There is disc space narrowing at T12-L1 through L2-L3. ALIGNMENT: Lumbar spinal alignment is within normal limits. No spondylolysis or spondylolisthesis. SOFT TISSUE: There is a moderate amount of stool in the colon suggesting constipation. IMPRESSION: [id number] degenerative changes in the lumbar spine. DATA REPOSITORY: RADIATION DOSE DELIVERED:
== END 2024-11-16 01:40 ==
PROVIDERS: PCP Family Medicine; Visit Provider Family Medicine
DX: M16.11 Unilateral primary osteoarthritis, right hip (principal); M51.362 Other intervertebral disc degeneration, lumbar region with discogenic back pain and lower extremity pain
CPT/HCPCS: 72110; 73502

== ENCOUNTER 2025-03-15 11:49 | Emergency (ER) | payer MEDICARE, SELFPAY ==
[2025-03-15 11:50] VITALS: BP 149/66; PULSE 60; RESP 16; TEMP 36.4; O2SAT 98
--- NOTE | 2025-03-15 12:00 | DI.US_ITS ---
Exam(s) US LOWER EXTREMITY VENOUS RT EXAM: US LOWER EXTREMITY VENOUS RT CLINICAL HISTORY: knee replaced one week ago, calf pain and swelling TECHNIQUE: Grayscale, color, and doppler imaging of the deep venous system of the right lower extremity was performed. COMPARISON: US US ECHOCARDIOGRAM from 09/23/2023 FINDINGS: There is no evidence of intraluminal thrombus and there is normal compression and augmentation demonstrated within the common femoral vein, femoral vein, and popliteal vein. In the ipsilateral calf the interrogated veins also exhibit normal compression/ augmentation properties. The ipsilateral saphenofemoral junction is patent. Although there is no evidence of DVT, there is some soft tissue edema noted throughout the calf. IMPRESSION: 1. No evidence of DVT in the right lower extremity. 2. Some soft tissue edema throughout the calf is noted. There does not appear to be a distinct focal fluid collection. DATA REPOSITORY:
--- NOTE | 2025-03-15 12:11 | W.ED.GENAD ---
Discharge Plan Disposition Patient Disposition: Home Condition: Stable Discharge Details Clinical Impression: Right leg swelling Primary Care Provider: Shakira Downs V ED Provider: Phillip Mendoza Home Meds and New Rx's Prescriptions: Continued levothyroxine 100 mcg capsule 88 mcg PO DAILY calcium carbonate-vitamin D3 [Calcium 600 + D(3)] 600 mg(1,500mg) -400 unit Tablet 1 tab PO BID naproxen 500 mg tablet 500 mg PO BID oxycodone 5 mg tablet 5 mg PO BID PRN Discharge Instructions Additional Instructions: Your ultrasound did not show any blood clots. Follow-up with your surgeon. Try to keep the leg elevated as much as you can. If you feel more ill or develop new symptoms such as chest pain or difficulty breathing or high fevers return to the emergency department for reevaluation. HPI General Mode of arrival: ambulatory. Date/Time Provider Initiated Documentation: 03/15/25 11:54. Limitations to Documentation: no limitations. Information obtained by: patient. History of Present Illness 84 year old F presents to the emergency department with the chief complaint of right leg swelling, described as moderate, Quality is described as aching, and it has been constant. No relieving factors improve symptom(s), No exacerbating factors reported . Patient notes denies chest pain and shortness of breath. Patient did receive the following treatments prior to arrival, none Related Data Home Medications ?Medication ?Instructions ?Recorded ?Confirmed calcium 600 mg (as 1 tab PO BID 06/04/21 03/15/25 carbonate)-vitamin D3 10 mcg (400 unit) tablet (Calcium 600 + D(3)) levothyroxine 100 mcg capsule 88 mcg PO DAILY 07/01/22 03/15/25 naproxen 500 mg tablet 500 mg PO BID 03/15/25 03/15/25 oxycodone 5 mg tablet 5 mg PO BID PRN 03/15/25 03/15/25 Allergies Allergy/AdvReac Type Severity Reaction Status Date / Time fentanyl Allergy Severe Anaphylaxis Unverified 03/15/25 11:52 alendronate sodium (From AdvReac Intermediate pain Unverified 03/15/25 11:52 Fosamax) General Stated Complaint: Orthopedic VIVIANA: 3 Review of Systems All systems reviewed & are unremarkable except as noted in HPI and below Constitutional Constitutional: Denies chills, Denies fever(s) and Denies weakness Cardiovascular Cardiovascular: Denies chest pain and Denies dyspnea Respiratory Respiratory: Denies cough and Denies dyspnea Gastrointestinal Gastrointestinal: Denies vomiting Musculoskeletal Musculoskeletal: Reports other (leg swelling) Integumentary/Breasts Skin/Breast: Denies rash Neurologic Neurologic: Denies weakness Exam Const General: no acute distress Orientation: alert [facility] Head: normal to inspection Ears: external ears normal General nose exam: external nose normal Mouth: moist mucous membranes Eyes General: appearance normal, both eyes and all related structures Neck Neck: normal visual inspection Resp Effort & Inspection: normal respiratory effort and able to speak in complete sentences Cardio Rate: regular rate Neuro General: patient alert and patient oriented x3 Extrem General: capillary refill normal Psych Mental Status: mental status grossly normal Course Vital Signs Vital signs: Vital Signs Temperature 36.4 C L 03/15/25 11:50 Pulse 60 03/15/25 11:50 Respiratory Rate 16 03/15/25 11:50 Blood Pressure 149/66 H 03/15/25 11:50 Pulse Oximetry 98 03/15/25 11:50 Temperature 36.4 C L 03/15/25 11:50 Temperature Source Tympanic 03/15/25 11:50 Pulse 60 03/15/25 11:50 Respiratory Rate 16 03/15/25 11:50 Blood Pressure 149/66 H 03/15/25 11:50 Blood Pressure Position Sitting 03/15/25 11:50 Pulse Oximetry 98 03/15/25 11:50 Oxygen Delivery Method Room Air 03/15/25 11:50 Oxygen Flow Rate 0 03/15/25 11:50 Pain Level 0 03/15/25 11:50 Medical Decision Making 84-year-old female who states she had an uncomplicated right knee replacement a week ago at [facility] comes in with 1 day of worsening swelling of her leg and calf tenderness. She otherwise feels well and denies chest pain, difficulty breathing, fevers or chills. The midline and over her knee is well-healing without any drainage. Her right leg is swollen compared to the left. She has mid to upper calf tenderness. No crepitus. Given the surgery concern for possible DVT, will check a DVT ultrasound and also BMP to assess her kidney function. Ultrasound shows no DVT and BMP unremarkable. She is stable. I recommended following up with her surgeon and return precautions given Differential Diagnosis Differential Diagnosis: DVT, postop swelling PFSH All Active Problems (Updated 03/15/25 @ 15:03 by Phillip Mendoza MD) Right leg swelling (Acute) Bilateral carpal tunnel syndrome (Acute) Medical History Actinic keratoses AV block, 1st degree Per pt. states f/u with PCP Back pain Fatigue Hypothyroidism Numbness and tingling in left arm Osteoarthritis Osteopenia Paresthesia of both hands Symptomatic menopausal or female climacteric states Surgical History History of total knee arthroplasty Hx of cataract surgery Hx of section Hx of colonoscopy Family History Mother Dementia Stroke Father Stroke Hypertension Alcohol use disorder Sister Diabetes Stroke S/P TKR (total knee replacement) Overweight Brother Alcohol use disorder Overweight Social History Smoking/Tobacco Use Status: Never Smoking risk assessment performed?: Yes Alcohol Intake: never Substance use type: does not use Housing: house Do you feel safe at home: Yes Do you feel safe in your relationship?: Yes Additional Social history: lives alone
[2025-03-15 12:12] VITALS: RESP 14
[2025-03-15 15:23] LABS: Anion Gap 9.3 mmol/L (3-11); BUN 16 mg/dL (7-18); CO2 27.7 mmol/L (21.0-32.0); Calcium 8.7 mg/dL (8.5-10.1); Chloride 103 mmol/L (98-107); Estimated GFR 86.30 (mL/min/1.73m2); Glucose 120 mg/dL (74-106); Potassium 4.2 mmol/L (3.5-5.1); Sodium 140 mmol/L (136-145)
[2025-03-15 15:43] VITALS: BP 133/53; PULSE 51; RESP 18; O2SAT 96
== END 2025-03-15 15:44 | disposition home or self-care (01) ==
PROVIDERS: Emergency Provider Emergency Medicine; PCP Family Medicine
DX: R22.41 Localized swelling, mass and lump, right lower limb (principal); Z96.651 Presence of right artificial knee joint; Z98.890 Other specified postprocedural states
CPT/HCPCS: 99283; 99284; 80048; 93971

== ENCOUNTER 2025-07-24 18:53 | Outpatient (REF) | payer MEDICARE, SELFPAY ==
[2025-07-24 19:56] LABS: Hemoglobin A1C 5.8 % (<5.7)
[2025-07-24 20:00] LABS: TSH (W/Ref FT4) 2.03 uIU/mL (0.55-4.78)
== END 2025-07-24 18:54 | disposition home or self-care (01) ==
LOC: NCHCN 18:53
PROVIDERS: PCP Family Medicine; Visit Provider Family Medicine
DX: E03.9 Hypothyroidism, unspecified (principal); Z13.1 Encounter for screening for diabetes mellitus
CPT/HCPCS: 83036; 84443